=== PATIENT | female | born 2000 | race Caucasian/White ===

== ENCOUNTER → 2020-07-21 15:48 | Outpatient (BNVA) | payer OTHER, SELFPAY | PROVIDERS: PCP Nurse Practitioner Family; Visit Provider Internal Medicine Gastroenterology | DX: Z76.89 Persons encountering health services in other specified circumstances (principal) ==

== ENCOUNTER → 2021-01-20 13:08 | Outpatient (BNVA) | payer BC, SELFPAY | PROVIDERS: PCP Nurse Practitioner Family; Visit Provider Internal Medicine Gastroenterology ==

== ENCOUNTER 2024-05-11 11:14 | Outpatient (REF) | payer OTHER, SELFPAY ==
[2024-05-11 11:34] LABS: MANUAL DIFF FLAG NO
[2024-05-11 12:03] LABS: Basophils Percent Auto 0.6 % (0-2); Eosinophils Absolute Auto 0.1 X10*3/uL (0.0-0.4); Eosinophils Percent Auto 0.8 % (0-4); Hematocrit 39.9 % (37.0-47.0); Hemoglobin 13.8 g/dl (12.0-16.0); Imm Gran Abs Auto 0.02 X10*3/uL (0.00-0.03); Imm Gran Pct Auto 0.3 % (0.0-0.4); Lymphocytes Absolute Auto 1.4 X10*3/uL (1.2-4.9); Lymphocytes Percent Auto 20.6 % (20-40); Mean Corpuscular HGB Conc 34.6 g/dl (31.0-35.0); Mean Corpuscular Hemoglobin 30.1 pg (27.0-33.0); Mean Corpuscular Volume 86.9 fL (80.0-98.0); Mean Platelet Volume 10.3 fL (9.4-12.3); Monocytes Absolute Auto 0.5 X10*3/uL (0.1-1.2); Neutrophils Absolute Auto 4.6 x10*3/uL (2.0-8.3); Neutrophils Percent Auto 70.7 % (45-73); Platelet Count 297 X10*3/uL (160-400); Red Blood Count 4.59 X10*6/uL (4.20-5.50); Red Cell Distribution Width 12.9 % (11.0-16.0); White Blood Count 6.5 X10*3/uL (4.8-10.8)
[2024-05-11 12:57] LABS: Alanine Aminotransferase 23 U/L (0-31); Albumin Level 4.3 g/dL (3.5-5.0); Alkaline Phosphatase 64 U/L (39-117); Anion Gap 11 (12-20); Aspartate Amino Transferase 15 U/L (5-31); Bilirubin Total 1.2 mg/dL (0.0-1.0); Blood Urea Nitrogen 14 mg/dL (9-16); C Reactive Protein < 0.10 mg/dL (< or = 0.50); Calcium 9.9 mg/dL (8.4-10.2); Carbon Dioxide 25 mmol/L (22-29); Chloride 107 mmol/L (96-108); Estimated Glomerular Filt Rate > 60; Glucose Random 93 mg/dL (60-115); Magnesium 2.3 mg/dL (1.6-2.6); Potassium 4.2 mmol/L (3.3-5.1); Sodium 139 mmol/L (135-145); Total Protein 7.9 g/dL (6.5-8.0)
[2024-05-11 13:12] LABS: Ferritin 42 ng/mL (10-122)
[2024-05-11 13:25] LABS: Folate 7.7 ng/mL (> or = 4.0); Vitamin B12 434 pg/mL (200-900)
== END 2024-05-11 11:15 | disposition home or self-care (01) ==
LOC: HO.LAB 11:14
PROVIDERS: PCP Nurse Practitioner Family; Visit Provider Internal Medicine Gastroenterology
DX: D47.09 Other mast cell neoplasms of uncertain behavior (principal); R19.7 Diarrhea, unspecified; K75.81 Nonalcoholic steatohepatitis (NASH)
CPT/HCPCS: 36415; 80053; 82607; 82728; 82746; 83088; 83735; 85025; 86140

== ENCOUNTER 2024-05-16 11:23 | Outpatient (REF) | payer OTHER, SELFPAY ==
[2024-05-16 12:36] LABS: CDiff Gene PCR NEGATIVE (Negative)
[2024-05-16 13:02] LABS: Adenovirus F 40/41 Not Detected (Not Detect.); Astrovirus Not Detected (Not Detect.); Campylobacter Not Detected (Not Detect.); Cryptosporidium Not Detected (Not Detect.); Cyclospora cayetanensis Not Detected (Not Detect.); E. coli EAEC Not Detected (Not Detect.); E. coli EPEC Not Detected (Not Detect.); E. coli ETEC Not Detected (Not Detect.); E. coli STEC Not Detected (Not Detect.); Entamoeba histolytica Not Detected (Not Detect.); Giardia lamblia Not Detected (Not Detect.); Norovirus GI/GII Not Detected (Not Detect.); Plesiomonas shigelloides Not Detected (Not Detect.); Rotavirus A Not Detected (Not Detect.); Salmonella Not Detected (Not Detect.); Sapovirus Not Detected (Not Detect.); Shigella sp./EIEC Not Detected (Not Detect.); Vibrio Not Detected (Not Detect.); Vibrio Cholerae Not Detected (Not Detect.); Yersinia enterocolitica Not Detected (Not Detect.)
[2024-05-23 18:09] LABS: Lactoferrin, Fecal, Quant. <6.25 mcg/mL (<7.25)
== END 2024-05-16 11:24 | disposition home or self-care (01) ==
LOC: HO.LNP 11:23
PROVIDERS: Visit Provider Internal Medicine Gastroenterology
DX: R19.7 Diarrhea, unspecified (principal); D47.09 Other mast cell neoplasms of uncertain behavior
CPT/HCPCS: 83631; 87493; 87507

== ENCOUNTER 2024-05-18 08:42 | Outpatient (REF) | payer OTHER, SELFPAY ==
--- NOTE | ~2024-05-18 | US_ITS ---
EXAMINATION: US ABDOMEN LIMITED CLINICAL INFORMATION: Right upper quadrant pain. Nausea. COMPARISON: CT abdomen and pelvis 04/09/2020. MRI abdomen 01/18/2020. TECHNIQUE: Real-time imaging of the right upper quadrant abdominal viscera. FINDINGS: PANCREAS: Visualized proximal pancreas within normal limits, otherwise partially obscured secondary to overlying bowel gas. LIVER: Normal. The liver is normal in size. The liver contour is normal. Parenchymal echogenicity is normal. No focal hepatic lesion. There is no intrahepatic biliary duct dilatation seen. GALLBLADDER: There is a 0.3 cm adherent calculus versus polyp adjacent to the neck. No evidence of gallbladder wall thickening or pericholecystic free fluid. Negative Ho's sign. COMMON BILE DUCT: Normal in caliber measuring 0.2 cm in diameter. RIGHT KIDNEY: Normal. No hydronephrosis. No renal calculi or focal parenchymal lesions. The kidney measures 10.5 cm in maximum dimension. FREE FLUID: None. US/US abdomen limited IMPRESSION: There is a 0.3 cm adherent calculus versus polyp adjacent to the neck of the gallbladder. Recommend follow-up with ultrasound in 6-12 months. Otherwise, normal examination. Electronically signed by: Cat Olsen MD 05/24/2024 12:01 PM EDT
== END 2024-05-18 08:43 | disposition home or self-care (01) ==
LOC: HO.US 08:42
PROVIDERS: PCP Nurse Practitioner Family; Visit Provider Internal Medicine Gastroenterology
DX: R01.1 Cardiac murmur, unspecified (principal)
CPT/HCPCS: 76705

== ENCOUNTER 2024-06-05 15:47 | Outpatient (REF) | payer OTHER, SELFPAY ==
--- NOTE | ~2024-06-05 | MR_ITS ---
EXAMINATION: MR ABDOMEN WITHOUT AND WITH CONTRAST CLINICAL INFORMATION: Right upper quadrant pain. COMPARISON: Abdominal ultrasound 05/18/2024. CTA abdomen and pelvis 04/09/2020. TECHNIQUE: MR abdomen was performed without and with use of 7 mL intravenous Gadavist gadolinium contrast. Postcontrast images are performed in multiphase dynamic sequences. Imaging was performed in 3 planes. FINDINGS: LUNG BASES: The visualized lung bases are unremarkable. LIVER, GALLBLADDER, AND BILIARY TREE: The liver is normal in size, smooth in contour, and normal in signal. No focal hepatic lesion or biliary ductal dilatation is present. The gallbladder is unremarkable with no evidence of gallbladder wall thickening, or obvious pericholecystic inflammatory changes. PANCREAS: Unremarkable. SPLEEN: Normal. ADRENAL GLANDS: Normal. KIDNEYS AND URETERS: The kidneys are normal in size, shape, and enhance symmetrically. No hydronephrosis. No perinephric stranding. GASTROINTESTINAL TRACT: Nonspecific moderate gastric distention. No bowel obstruction or ascites. ABDOMINAL WALL: No significant hernia is appreciated. LYMPH NODES: No lymphadenopathy. VASCULAR: Unremarkable. OSSEOUS STRUCTURES: No acute or aggressive appearing osseous findings. MR/MR abdomen wo/w con IMPRESSION: 1. Nonspecific moderate gastric distention that could be seen with postprandial state or gastroparesis, and less likely gastric outlet obstruction, correlate clinically. 2. Otherwise, no significant abnormality to explain the patient's pain. Electronically signed by: Cat Olsen MD 06/08/2024 01:43 PM EDT
[2024-06-05] MEDS: gadobutroL 7.5 ML VIAL IVPUSH (16:32)
== END 2024-06-05 15:48 | disposition home or self-care (01) ==
LOC: HO.MRI 15:47
PROVIDERS: PCP Nurse Practitioner Family; Visit Provider Internal Medicine Gastroenterology
DX: R10.11 Right upper quadrant pain (principal)
CPT/HCPCS: 74183; A9585

== ENCOUNTER 2024-06-27 06:25 | Day surgery (SDC) | payer OTHER, SELFPAY ==
--- NOTE | 2024-06-26 14:24 | HO.ANESPROP2 ---
Documented by User: Arabella Potter NP 06/26/24 14:30 HPI - Anesthesia Eval Consult details Narrative: 23yo F for Upper Endoscopy with Balloon Dilitation Mast Cell Ds: Abdominal pain. ? itchy throat. No derm reaction. No anaphylaxis. Famotadine, Cromolyn, Claritin rx. T/C to patient. Had EGD before, thinks [facility], without any mast cell cascade. Prefers to avoid benadryl preop. Will order preop Pepcid IV. PMFSH Active Problems Active Problems: All Active Problems RUQ abdominal pain (Acute) Diarrhea (Acute) Mast cell disorder (Acute) Past Medical History Medical History Migraine Anxiety Mast cell disorder Family History Family History Father Family history of high blood pressure Mother Alive and well Surgical History Surgical History Hx of shoulder surgery Hx of knee surgery History of ankle surgery Hx of carpal tunnel repair Hx of endoscopy History of colonoscopy Social History Social History Alcohol intake: never Patient Tobacco Use Status: Never used Tobacco Use of substances other than those prescribed or required for medical reasons: No Are you DNR?: No Advance Directives: No Advance Directives Information Provided: Yes Meds Allergies Allergy/AdvReac Type Severity Reaction Status Date / Time No Known Allergies Allergy Verified 06/27/24 06:56 Home Medications ?Medication ?Instructions ?Recorded ?Confirmed ?Last Taken ?Type bupropion HCl 75 mg tablet 75 mg PO BID 06/27/24 06/27/24 Unknown History topiramate 25 mg tablet 25 mg PO BID 06/27/24 06/27/24 Unknown History Exam Pertinent Lab Results Pertinent Lab Results: Laboratory Tests 05/11/24 11:33 WBC 6.5 Hgb 13.8 Hct 39.9 Plt Count 297 Sodium 139 Potassium 4.2 Chloride 107 Carbon Dioxide 25 BUN 14 Creatinine 1.03 Assessment and Plan Assessment Anesthesia Assessment: Chart Reviewed Documented by User: Mercy Jim MD 06/27/24 07:31 PMF Past Medical History Medical History Migraine Anxiety Mast cell disorder Family History Family History Father Family history of high blood pressure Mother Alive and well Family history of problems with anesthesia: No Surgical History Surgical History Hx of shoulder surgery Hx of knee surgery History of ankle surgery Hx of carpal tunnel repair Hx of endoscopy History of colonoscopy History of Problems with Anesthesia: No Social History Social History Alcohol intake: never Patient Tobacco Use Status: Never used Tobacco Use of substances other than those prescribed or required for medical reasons: No Are you DNR?: No Advance Directives: No Advance Directives Information Provided: Yes Meds Allergies Allergy/AdvReac Type Severity Reaction Status Date / Time No Known Allergies Allergy Verified 06/27/24 06:56 Home Medications ?Medication ?Instructions ?Recorded ?Confirmed ?Last Taken ?Type bupropion HCl 75 mg tablet 75 mg PO BID 06/27/24 06/27/24 Unknown History topiramate 25 mg tablet 25 mg PO BID 06/27/24 06/27/24 Unknown History Exam Airway TM Dist: >3cm Neck ROM: Full Heart: rrr Lungs: cta Assessment and Plan Assessment Anesthesia Assessment: Anesthesia Plan Discussed Final Anesthetic Review Family History of Problems with Anesthesia: No History of Problems with Anesthesia: No NPO: Yes ASA Class: III Final Preanesthetic Review: No Changes in Pt Med Stat, Meds/Allgs Chart Reviewed, Consent Obtained/Reviewed and Anes Risks/Benef Reviewed Patient Risk: Intermediate Procedure Risk: Low Anesthetic Plan Anesthetic Plan: MAC: Disposition: Standard PACU
[2024-06-27 06:57] VITALS: BMI 28.9
[2024-06-27 07:02] VITALS: BP 125/88; PULSE 80; RESP 15; TEMP 36.7; O2SAT 99
[2024-06-27] MEDS: Famotidine/PF 20 MG/2 ML VIAL IVPUSH (07:14)
[2024-06-27] MEDS: Lactated Ringers 1,000 ML 100 ML IVCONT (07:14)
[2024-06-27 07:28] LABS: UPreg QC Valid YES; Urine Pregnancy NEGATIVE (NEGATIVE)
--- NOTE | 2024-06-27 07:39 | MHC.SHP ---
Pre-Procedural Eval Section A - 24 Hr Update-Section A only Date of Service: 06/27/24 Section B - Complete if H&P > 30 days Chief Complaint: Other mast cell neoplasms of uncertain behavior Relevant Family History (Specify if Yes): No Relevant Social History: None Present Medications: see Short Stay Collaborative assessment Medical History: Significant History (anxiety) History of Previous Operations: Relevant previous surgery/procedure and date(s) ( History of colonoscopy Hx of carpal tunnel repair Hx of endoscopy) Allergies: Allergies Allergy/AdvReac Type Severity Reaction Status Date / Time No Known Allergies Allergy Verified 06/27/24 06:56 Review of Systems Sugical H&P ROS: Negative: Constitution, Cardiovascular, Respiratory, Neurological, Psychiatric, Hem-Onc, Allergic/Immunologic, Gastrointestinal, Genitourinary, Musculoskeletal, Integumentary, Endocrine and Eyes/Ears/Nose/Throat Exam Surgical H&P Exam: Normal: HEENT, Normal: Heart, Normal: Lungs, Normal: Extremities, Normal: Abdomen, Normal: Skin and Normal: Neurological Plan Diagnosis/Plan: Unchanged I have reviewed the history and physical and performed a pertinent physical examination on my patient. No changes have occurred unless specified. Time Spent With Patient Time: Total time managing care of this patient today ____ minutes.
--- NOTE | 2024-06-27 07:41 | P.OP_ITS ---
Operative Note Operative Note Date of Service: 06/27/24 Narrative: Procedure Description: EGD Indication: Abdominal pain Anesthesia: MAC FLEXIBLE TRANSORAL UPPER GASTROINTESTINAL ENDOSCOPY UPPER ENDOSCOPY Consent: Indications for the procedure and potential complications of bleeding, perforation, reaction to medications and missed diagnosis were discussed with the patient and informed consent was obtained. Instrument: Olympus GIF H 190 J mid size upper endoscope Monitoring: Vital signs and clinical assessment, continuous EKG monitoring, Pulse oximetry, Carbon Dioxide monitoring and blood pressure monitoring were done throughout the procedure. Procedure: The patient was placed in the left lateral decubitis position and pre-procedure medications were administered and a bite block was placed. The endoscope was inserted into the mouth and advanced under direct vision to the third part of duodenum. A careful inspection was made as the upper endoscope was withdrawn including a retroflexed examination of the proximal stomach; Findings and interventions are described below. Findings: Larynx:normal Esophagus: GE junction at 35 cm, diaphragm hiatus at 39 cm, suspected para- esophageal hernia--bx taken from distal and proximal esophagus --UES and LES also dilated to 20 mm, no heme noted Stomach: normal . Biopsies were obtained. Grade 2 flap valve on retroflexed examination of the cardia. Plyoric outlet was v tight, stretched with wire guided balloon to 20 mm with heme noted around edges of outlet Duodenum: Normal bulb and descending duodenum, Intervention: Biopsies as noted above, wire guided balloon dilation Impression/Findings: suspected para esophageal hernia pyloric outlet stenosis PLAN: regular diet as tolerated GERD precautions Ba swallow with pill and follow thru
[2024-06-27 08:11] VITALS: BP 106/70; PULSE 92; RESP 16; TEMP 36.4; O2SAT 98
[2024-06-27 08:26] VITALS: BP 118/81; PULSE 88; RESP 16; O2SAT 100
[2024-06-27 08:40] VITALS: BP 126/82; PULSE 93; RESP 16; TEMP 36.3; O2SAT 100
== END 2024-06-27 09:10 | disposition home or self-care (01) ==
PROVIDERS: Nurse Practitioner; PCP Nurse Practitioner Family; Visit Provider Internal Medicine Gastroenterology
PROC: (CPT 43249; principal; 2024-06-27 07:30)
DX: D47.09 Other mast cell neoplasms of uncertain behavior (principal); R10.9 Unspecified abdominal pain; K31.1 Adult hypertrophic pyloric stenosis; K44.9 Diaphragmatic hernia without obstruction or gangrene; F41.9 Anxiety disorder, unspecified
CPT/HCPCS: 43249; 43245; 43239; 81025; 88305; 88342; C1726; J1100; J1596; J2003; J2704

== ENCOUNTER → 2024-06-27 06:25 | Outpatient (BNV) | payer OTHER, SELFPAY | PROVIDERS: PCP Nurse Practitioner Family; Visit Provider Internal Medicine Gastroenterology | DX: R10.9 Unspecified abdominal pain (principal); K31.1 Adult hypertrophic pyloric stenosis | CPT/HCPCS: 43239; 43249 ==

== ENCOUNTER 2024-07-16 14:15 | Outpatient (AMB) | payer OTHER, SELFPAY ==
--- NOTE | 2024-07-16 14:17 | A.OFFVIS_ITS ---
Vital Signs 07/16/24 14:19 Height 5 ft 2 in Weight 154 lb 5.177 oz BMI 28.2 BP 119/70 Blood Pressure Location Lt brachial Position Sitting Pulse 98 Intake Visit Reasons: Mast cell disorder Intake Note: Tuyet presents in the office as a follow up for Mast Cell Disorder. CC: States that she does not feel that anything has changed. Patient is scheduled for a BA swallow on at [employer] [place]. 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 Recommend follow-up with ultrasound in 6-12 months. MRI: 06/05 1. Nonspecific moderate gastric distention that could be seen with postprandial state or gastroparesis, and less likely gastric outlet obstruction, correlate clinically. 2. Otherwise, no significant abnormality to explain the patient's pain. HIDA_- normal EXAM: GENERAL: The patient is well developed and nontoxic. VITAL SIGNS:see workflow HEENT: Nonicteric sclerae, PERRLA, EOMI. Oropharynx clear. Moist mucous membranes. Conjunctivae appear well perfused. No thyroid mass. CHEST: Chest wall is nontender. HEART: Regular rate and rhythm without murmurs. LUNGS: Clear to auscultation bilaterally. ABDOMEN: Soft, positive bowel sounds, tender epigastrium, no organomegaly.no flank tenderness SKIN: No rash, no excessive bruising, petechiae, or purpura. NEUROLOGIC: Cranial nerves II-XII intact without motor/sensory deficit. Psych: normal affect A/P: 1/Suspected hiatal hernia and reflux sx, neg GB work up, possible tiny stone or polyp PLAN: 1/ await ba swallow and pill 2/ can repeat US next year 3/ h pylori breath test -carafate for 2 weeks, and hold ppi [facility] Medical History Migraine Anxiety Mast cell disorder Surgical History Hx of shoulder surgery Hx of knee surgery History of ankle surgery Hx of carpal tunnel repair Hx of endoscopy History of colonoscopy Family History Father Family history of high blood pressure Mother Alive and well Social History Alcohol intake: never Patient Tobacco Use Status: Never used Tobacco Physical Exam Vital Signs: Last Vital Signs Pulse 98 07/16/24 14:19 BP 119/70 07/16/24 14:19 BMI result Body Mass Index 28.2 Assessment & Plan Assessment & Plan (1) GERD (gastroesophageal reflux disease): Code(s): K21.9 - Gastro-esophageal reflux disease without esophagitis Category: Medical Plan: see above Medications: New sucralfate 10 mL PO BID 300 mL 0RF Coding Level of Care Code Est Pt Level 3 (86656) Diagnoses GERD (gastroesophageal reflux disease) K21.9
[2024-07-16 14:19] VITALS: BP 119/70; PULSE 98; BMI 28.2
== END 2024-07-16 14:49 | disposition home or self-care (01) ==
LOC: HO.HGI 14:15
PROVIDERS: PCP Physician Assistant Surgical; Visit Provider Internal Medicine Gastroenterology
DX: K21.9 Gastro-esophageal reflux disease without esophagitis (principal)
CPT/HCPCS: 99213

== ENCOUNTER 2024-07-31 09:18 | Outpatient (AMB) | payer OTHER, SELFPAY ==
--- NOTE | 2024-07-31 09:26 | AM.OFFVISNUR ---
Intake Visit Reasons: H PYLORI Allergies No Known Allergies Allergy (Verified 07/16/24 14:19) Nursing Note Patient presents for collection of H Pylori breath test. Patient has been fasting for 1 hour (nothing to eat, drink, no chewing gum or smoking) has not taken any antacid medication for at least 2 weeks and has no allergies to artificial sweeteners.?? Assessment & Plan Assessment & Plan (1) GERD (gastroesophageal reflux disease): Code(s): K21.9 - Gastro-esophageal reflux disease without esophagitis Category: Medical (2) Diarrhea: Code(s): R19.7 - Diarrhea, unspecified Category: Medical (3) RUQ abdominal pain: Code(s): R10.11 - Right upper quadrant pain Category: Medical Plan Patient presents for collection of H Pylori breath test. Patient has been fasting for 1 hour (nothing to eat, drink, no chewing gum or smoking) has not taken any antacid medication for at least 2 weeks and has no allergies to artificial sweeteners.???This test checks for an overgrowth of bacteria in your stomach. We all have bacteria but some may have more than others. It is treatable. if the test comes back negative there is nothing else to do. If the test result is positive we will treat you with 2 antibiotics and a medication to decrease the acid in your stomach (PPI) for 2 weeks. Two weeks after you have completed the treatment we will retest you to make sure the overgrowth has resolved. Orders: Orders H Pylori Breath Test Today Patient Instructions: Process for specimen collection and reason for testing was explained to the patient. Specimen collection. Patient instructed to take a deep breath and then exhale into the blue bag, filling it up as much as possible. Patient instructed to drink a mixture of water and the artificial sweetener with a straw. A 15 minute wait period was observed. Patient instructed to take a deep breath and then exhale into the pink bag, filling it up as much as possible.??
== END 2024-07-31 09:49 | disposition home or self-care (01) ==
PROVIDERS: PCP Physician Assistant Surgical; Visit Provider Internal Medicine Gastroenterology
DX: K21.9 Gastro-esophageal reflux disease without esophagitis (principal); R19.7 Diarrhea, unspecified; R10.11 Right upper quadrant pain

== ENCOUNTER 2024-07-31 09:18 | Outpatient (REF) | payer OTHER, SELFPAY ==
[2024-08-01 15:58] LABS: H Pylori Breath Test Negative (Negative)
== END 2024-07-31 09:19 | disposition home or self-care (01) ==
LOC: HO.LNP 09:18
PROVIDERS: PCP Physician Assistant Surgical; Visit Provider Internal Medicine Gastroenterology
DX: K21.9 Gastro-esophageal reflux disease without esophagitis (principal)
CPT/HCPCS: 83013; 99211

== ENCOUNTER → 2024-09-26 08:06 | Outpatient (REF) | payer OTHER, SELFPAY ==
--- NOTE | ~2024-09-26 | NM_ITS ---
EXAMINATION: NM RADIONUCLIDE SOLID FOOD GASTRIC EMPTYING 4-HOUR STUDY CLINICAL INFORMATION: Early satiety COMPARISON: None TECHNIQUE: A standard meal consisting of 4 oz of Egg Beaters brand tagged with 1 microcuries Tc-99m Sulfur Colloid, 8 oz water and 2 slices of toast with jelly was administered orally to the patient. Images were obtained using a dual head gamma camera in the anterior and posterior projections over of the stomach immediately post ingestion and at hourly intervals up to 4 hours post ingestion. The anterior and posterior counts at each time interval were averaged using the geometric mean and expressed as percentage of the immediate post ingestion counts. FINDINGS: There is good visualization of activity in the stomach immediately post ingestion. As the study progresses, there is good clearance of activity from the stomach and visualization of progressively increasing small bowel activity. By the end of the study, there is almost no retention noted in the stomach. Retention in the stomach at each time interval was: 1 hour 60% (normal 37%-90%) 2 hours 23% (normal 30%-60%) 3 hours 5% 4 hours not imaged. % (normal 0%-10%) NM/MO gastric emptying study IMPRESSION: Normal 4-hour solid food gastric emptying study. For solid meal, rapid gastric emptying is less than 30% at 60 minutes. Delayed gastric emptying criteria is more than 60% remaining at 120 minutes or more than 10% at 240 minutes. The 4-hour value is the best discriminator of a normal or abnormal result). Gastric emptying study grading per JNMT Consensus Recommendations in 2008 (://tech.snmjournals.org/content/36/1/44) Grade 1 (mild retention): 11-20% at 4h Grade 2 (moderate retention): 21-35% at 4h Grade 3 (severe retention): 36-50% at 4h Grade 4 (very severe retention): >50% retention at 4h Electronically signed by: Clive Kumar MD 09/26/2024 12:53 PM [facility] [place]
== END ==
LOC: HO.NUCMED 08:06
PROVIDERS: PCP Physician Assistant Surgical; Visit Provider Internal Medicine Gastroenterology
DX: R68.81 Early satiety (principal)
CPT/HCPCS: 78264; A9541

== ENCOUNTER → 2024-09-26 08:07 | Outpatient (BNV) | payer OTHER, SELFPAY | PROVIDERS: PCP Physician Assistant Surgical; Visit Provider Radiology Diagnostic Radiology | DX: R68.81 Early satiety (principal) | CPT/HCPCS: 78264 ==

== ENCOUNTER 2024-11-02 09:23 | Outpatient (AMB) | payer OTHER, SELFPAY ==
--- NOTE | 2024-11-02 09:25 | MHC.OFFVIS ---
Vital Signs 11/02/24 09:26 Height 5 ft 2 in Weight 145 lb 8.081 oz BMI 26.6 BP 113/81 Blood Pressure Location Lt brachial Position Sitting Pulse 91 Intake Visit Reasons: S/P EGD with dilation; Dr. Warren Intake Note: Tuyet presents in the office as a follow up EGD. CC: She states that she is not having the same symptoms but she cut ouf a lot of foods so she is not sure if she just got used to the feeling or if has gotten a little better. 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 Warren: Details: 24 yr old f here for f/u RECAP: she had been c/o nausea, epigastric pain, going into the chest pain worse with food indigestion, partially helped with PPI and pepcid EGD with suspected para esophageal hernia, path with patchy gastritis, pyloric dilation she feels dilation didn't help she is awaiting ba swallow I ordered other tests: 05/18/24 US 0.3 cm adherent calculus versus polyp adjacent to the neck of the gallbladder. Recommend follow-up with ultrasound in 6-12 months. MRI: 06/05 1. Nonspecific moderate gastric distention that could be seen with postprandial state or gastroparesis, and less likely gastric outlet obstruction, correlate clinically. 2. Otherwise, no significant abnormality to explain the patient's pain. HIDA_- normal upper GI series: 08/05 nml - no hiatal hernia seen GES: 10/06- slightly fast emptying at 2 hr interim: she is unchanged, still has epigastric discomfort, anxiety issues sleep is better, 7 hr left job which has been helpful EXAM: GENERAL: The patient is well developed and nontoxic. VITAL SIGNS:see workflow HEENT: Nonicteric sclerae, PERRLA, EOMI. Oropharynx clear. Moist mucous membranes. Conjunctivae appear well perfused. No thyroid mass. CHEST: Chest wall is nontender. HEART: Regular rate and rhythm without murmurs. LUNGS: Clear to auscultation bilaterally. ABDOMEN: Soft, positive bowel sounds, tender epigastrium, no organomegaly.no flank tenderness SKIN: No rash, no excessive bruising, petechiae, or purpura. NEUROLOGIC: Cranial nerves II-XII intact without motor/sensory deficit. Psych: normal affect A/P: 1/ I reviewed results incl GES and acutally she has fast emtpying, she does recall having sx during the GES so she might have rapid gastric emptying PLAN: 1/ reivew high fiber diet to see if helps and increase fluid intake 2/ if ongoing sx then capsule endoscopy PFSH Medical History Migraine Anxiety Mast cell disorder Surgical History Hx of shoulder surgery Hx of knee surgery History of ankle surgery Hx of carpal tunnel repair Hx of endoscopy History of colonoscopy Family History Father Family history of high blood pressure Mother Alive and well Social History Alcohol intake: never Patient Tobacco Use Status: Never used Tobacco Physical Exam Vital Signs: BMI result Body Mass Index 26.6 Assessment & Plan Assessment & Plan (1) Epigastric abdominal pain: Code(s): R10.13 - Epigastric pain Category: Medical Plan: as above Medications: Discontinued nortriptyline Discontinued Reason: Patient no longer taking 10 mg PO BEDTIME 30 caps 3RF Coding Level of Care Code Est Pt Level 3 (15342) Diagnoses Epigastric abdominal pain R10.13
[2024-11-02 09:26] VITALS: BP 113/81; PULSE 91; BMI 26.6
--- OUTSIDE RECORDS SUMMARY | 2024-11-02 09:49 | XMS_ITS | Clinical Summary ---
Author Organization [facility] Address [address] [place] [address] Care Team Providers Care Children'S Attendant Name Role Phone Meredith Aranda NP Primary Care Provider Unavailabl e Allergies Active Allergy Reactions Criticality Noted Date Comments Lactose Abdominal Pain 04/29/2023 Medications tiZANidine (ZANAFLEX) 4 mg tablet SMARTSI Tablet(s) By Mouth Every Night PRN 3 Active SUMAtriptan (IMITREX) 50 mg tabletIndication s:Intractable migraine with aura without status migrainosus Take 1 tablet (50 mg total) by mouth once as needed for migraine (headache). May repeat one time after 2 hours if needed. 12 tablet 3 3 Active topiramate (TOPAMAX) 25 mg tabletIndication s:Intractable migraine with aura without status migrainosus TAKE ONE TABLET BY MOUTH TWICE A DAY 180 tablet 11 4 Active Active Problems Problem Noted Date Diagnosed Date Complex regional pain syndrome type I 04/29/2023 Migraine with aura 04/29/2023 Nausea 04/29/2023 Anxiety 04/29/2023 Mast cell disorder 03/26/2021 Gastroesophageal reflux disease without esophagi tis 03/26/2021 Sural neuritis, right 12/15/2020 Chronic RUQ pain 08/23/2019 Overview (04/29/2023): Last Assessment & Plan: This patient with RUQ abdominal pain and nausea has had an unremarkable workup. I had a lengthy discussion with the patient and her mother regarding her pain and the normal studies she has had. With normal studies, no stones, and no biliary dyskinesia, I feel there is no role for surgical exploration. She has seen Dr. Hines of GI who recommended she undergo repeat upper endoscopy to obtain biopsies and I have recommended she proceed with that. She may try Prilosec to be taken every day. Arthralgia of left temporomandibular joint 05/09 Encounters Date Type Department Care Team Description 08/08/2024 Refill [facility] [address] [place], [place] [id number] Branch Examiner: Vera Granados, Nehemiah Saldivar NP Intractable migraine with aura without status migrainosus from Last 3 Months Social History Tobacco Use Types Packs/Day Years Used Date Smoking Tobacco: Never Assessed Tobacco Cessation:Counseling Given: No Comments Unknown Sex and Gender Information Value Date Recorded Sex Assigned at Female 01/19/2023 4:17 PM EDT Legal Sex Female 3:43 PM EDT Gender Identity Female 01/19/2023 4:17 PM EDT Sexual Orientation Not on file Last Filed Vital Signs Vital Sign Reading Time Taken Comments Blood Pressure 125/85 04/29/2023 10:52 AM EDT Pulse 87 04/29/2023 10:52 AM EDT Temperature - - Respiratory Rate - - Oxygen Saturation - - Inhaled Oxygen Concentration - - Weight - - Height - - Body Mass Index - - Plan of Treatment Health Maintenance Due Date Last Done Comments HIV Screening 1998 Hepatitis C Screening 1998 Pap Smear 1998 COVID-19 Vaccine ( season) 2024 07/29/2022, 06/19/2021, 12/12/2020, Additional history exists Influenza Vaccine (#1) 2024 , 06/28/2019, 06/28/2018, Additional history exists Alcohol/Substance Use Screening 09/12/2024 Depression Screening and Follow-Up 09/12/2024 Social Drivers of Health Annual Screening 09/12/2024 DTaP,Tdap,and Td Vaccines (8 - Td or Tdap) 03/26/2031 03/26/2021, 12/23/2010, 2002, Additional history exists RSV Vaccine (60+ years old and patients) (1 - 1-dose 75+ series) 2073 Hepatitis B Vaccines Completed 07/29/1999, 1998, 1998 Varicella Vaccines Completed 12/10/2009, 11/04/1999 HPV Vaccines Completed 02/16/2013, 04/13, 02/16/2012 Pneumococcal Vaccine: Pediatric (0-5 Years) and At-Risk Patients (6-50 Years) Aged Out No longer eligible based on patient's age to complete this topic [place] [address] [employer] [id number] Care Teams Children'S Attendant Relationship Specialty Start Date End Date Meredith Aranda NP PCP - General Family Medicine 01/19/23
--- OUTSIDE RECORDS SUMMARY | 2024-11-02 09:49 | XMS_ITS | Encounter Summary ---
Author Organization [facility] Address [address] [place] [address] Phone Care Team Providers Care Woodwinds Teacher Name Role Phone Brigette Vigil MD Primary Care Provider Encounter Details Date Type Department Care Team (Late st Contact Info) Description 12/17/2013 Orders Only [facility], [address] [place] [address] Social History Tobacco Use Types Packs/Day Years Used Date Smoking Tobacco: Never Assessed Comments Unknown Sex and Gender Information Value Date Recorded Sex Assigned at Not on file Legal Sex Female 4:32 PM EST Gender Identity Not on file Sexual Orientation Not on file documented as of this encounter Plan of Treatment Not on file documented as of this encounter Visit Diagnoses Not on filedocumented in this encounter Care Teams Woodwinds Teacher Relationship Specialty Start Date End Date Brigette Vigil MD [address] [place] [address] [address] [place] [address] PCP - General 11/01/16 documented as of this encounter
--- OUTSIDE RECORDS SUMMARY | 2024-11-02 09:49 | XMS_ITS | Encounter Summary ---
Author Organization [facility] Address [phone] [facility] [place] [address] Care Team Providers Care Plastic Card Grader Cardroom Name Role Phone Uziel Baez MD Unavailable [phone] Benjamin Eugene PA-C Primary Care Provider [phone] Reason for Visit * Reason Onset Date Comments Hepatitis B 10/02/2024 Encounter Details Date Type Department Care Team (Late st Contact Info) Description 10/02/2024 Telephone [employer] [facility] Internal Medicine [address] [place], [place] [id number] Benjamin Eugene PA-C [address] [place] [address] [email or web address] Hepatitis B Social History Tobacco Use Types Packs/Day Years Used Date Smoking Tobacco: Never Smokeless Tobacco: Never Alcohol Use Standard Drinks/Week Comments Not Currently 0 (1 standard drink = 0.6 oz pur e alcohol) Child or Family Care Answer Date Record ed Do you have problems with on e of the following making it difficult for you to work, study, or receive health care? No 09/19/2024 Education Answer Date Recorded Are you interested in help w ith more adult education (for example, completing high school, GED, job training, learning the Panamanian language, technical skills, or developing parenting skills)? No 09/19/2024 Are you concerned about learning? Not on file 09/19/2024 No 09/19/2024 Yes 09/19/2024 Food Answer Date Recorded Within the past 6 months we worried whether our food would run out before we got money to buy more. Never True 09/19/2024 Within the past 6 months the food we bought just didn't last and we didn't have enough money to get more. Never True Residential Stability Answer Date Recor ded What is your housing situation today? I have giuliano sing 09/19/2024 How many times have you move d in the past 12 months? Zero (I did not move) 09/19/2024 Paying for Meds Answer Date Recorded Do you have trouble paying for medicines? No 09/19/2024 Paying Utility Bills Answer Date Record ed Do you have trouble paying your heating or elect ricity bill? No 09/19/2024 Transportation Answer Date Recorded Has the lack of transportati on kept you from medical appointments or from getting medications? No 09/19/2024 Unemployment Answer Date Recorded Are you currently unemployed or working on a part-time or temporary basis, and looking for work? No 09/19/2024 Digital Access Answer Date Recorded No 09/19/2024 Yes 09/19/2024 Do you have reliable internet access at home? Ye s 09/19/2024 Do you have a device (e.g., phone, tablet, computer) with a working camera? Yes 09/19/2024 Intimate Partner Violence Answer Date R ecorded Are you denied basic needs s uch as food, clothing, or medical care? No 09/19/2024 In the past 12 months have y ou been in a relationship with a person who hurts, threatens, or tries to control you? No 09/19/2024 Are you denied basic needs s uch as food, clothing, or medical care? No 09/19/2024 In the past 12 months have y ou been in a relationship with a person who hurts, threatens, or tries to control you? No 09/19/2024 Sex and Gender Information Value Date Recorded Sex Assigned at Female 03/11/2019 12:13 PM EDT Gender Identity Female 03/11/2019 12:13 PM EDT Sexual Orientation Straight 03/11/2019 12 :13 PM EDT documented as of this encounter Progress Notes * Magan Cates - 10/04/2024 8:01 AM EST Patient aware order placed for blood work * Magan Cates - 10/02/2024 8:12 AM EST Patient is being required to get a Hep B for work. Wondering if provider can place order so that she can get at our office? documented in this encounter Plan of Treatment Upcoming Encounters Date Type Department Care Team (Late st Contact Info) Description 09/26/2025 3:20 PM EST Appointment [facility] Internal Medicine [address] [place] [address] Benjamin Eugene PA-C [address] [place] [address] [email or web address] documented as of this encounter Results * Hepatitis B core antibody, total (10/06/2024 8:16 AM EST) HEP B CORE AB, TOT NON-REACTI VE NON-REACTI VE [facility] Blood 10/06/2024 8:16 AM EST 10/06/2024 8:18 AM EST Benjamin Eugene PA-C LAB BLOOD ORDERABLES [address] [phone] * Hepatitis B surface antibody (10/06/2024 8:16 AM EST) HBV SURFACE ANTIBODY Positive [facility] Comment: Unvaccinated: Negative Vaccinated: Positive Blood 10/06/2024 8:16 AM EST 10/06/2024 8:18 AM EST Benjamin Eugene PA-C LAB BLOOD ORDERABLES [facility] [address] [place] [address] documented in this encounter Visit Diagnoses Diagnosis Immunity status testing- Primary Antibody response examination documented in this encounter Additional Health Concerns Assessment Noted Time PHQ-9 Depression Total Score: 025 6:25 AM EST PHQ-2 Depression Total Score: 09/19/19 25 6:25 AM EST documented as of this encounter Care Teams Plastic Card Grader Cardroom Relationship Specialty Start Date End Date Benjamin Eugene PA-C [address] [place] [address] [email or web address] PCP - General Physician Refrigeration Installer 06/01/24 Uziel Baez MD [address] [place] [phone] Insurance Assigned Provider Internal Medicine 09/24/19 documented as of this encounter Additional Source Comments The information contained in this document represents components of the legal health record. It is not the complete legal health record.[facility]
--- OUTSIDE RECORDS SUMMARY | 2024-11-02 09:49 | XMS_ITS | Referral Summary ---
Author Organization [facility] Address [address] [place] [address] Care Team Providers Care Computer Art Instructor Name Role Phone Meredith Aranda NP Primary Care Provider Kevyn e Encounters Date Type Department Care Team Description 08/08/2024 Refill [facility] [address] [place] [address] Label Tacker: Nehemiah Glasgow NP Intractable migraine with aura without status migrainosus from Last 3 Months Allergies Active Allergy Reactions Criticality Noted Date [...] day. Arthralgia of left temporomandibular joint 05/09 Social History Tobacco Use Types Packs/Day Years [...] Mass Index - - Plan of Treatment Not on file Insurance [facility] [employer] [place] [id number] Care Teams Computer Art Instructor Relationship Specialty Start Date End Date Meredith Aranda NP PCP - General Family Medicine 01/19/23
--- OUTSIDE RECORDS SUMMARY | 2024-11-02 09:49 | XMS_ITS | Encounter Summary ---
Author Organization [facility] Address [phone] [facility] [place] [place] [address] Care Team Providers Care Blueprinter Name Role Phone Meredith Aranda SAFETY LAMP KEEPER Primary Care Provider [phone] Uziel Baez MD Unavailable [phone] Umesh Ortiz MD Primary Care Provider [phone] Benita Gordon NP Primary Care Provider [phone] Benjamin EugeneC Primary Care Provider [phone] Encounter Details Date Type Department Care Team (Late st Contact Info) Description 04/01/2021 Ancillary Orders [facility],Outside Imaging [address] [place] [address] System, Provider Not In, [facility] [address] [address] Social History Tobacco Use Types Packs/Day Years Used Date Smoking Tobacco: Never Smokeless Tobacco: Never Alcohol Use Standard Drinks/Week Comments No 0 (1 standard drink = 0.6 oz pur e alcohol) Child or Family Care Answer Date Record ed Do you have problems with on e of the following making it difficult for you to work, study, or receive health care? No 03/23/2021 Education Answer Date Recorded Are you interested in help w ith more adult education (for example, completing high school, GED, job training, learning the Maldivian language, technical skills, or developing parenting skills)? No 03/23/2021 Food Answer Date Recorded Within the past 6 months we worried whether our food would run out before we got money to buy more. Never True 03/23/2021 Within the past 6 months the food we bought just didn't last and we didn't have enough money to get more. Never True Residential Stability Answer Date Recor ded What is your housing situation today? I have giuliano li 03/23/2021 How many times have you move d in the past 12 months? Zero (I did not move) 03/23/2021 Paying for Meds Answer Date Recorded Do you have trouble paying for medicines? No 03/23/2021 Paying Utility Bills Answer Date Record ed Do you have trouble paying your heating or elect ricity bill? No 03/23/2021 Transportation Answer Date Recorded Has the lack of transportati on kept you from medical appointments or from getting medications? No 03/23/2021 Unemployment Answer Date Recorded Are you currently unemployed or working on a part-time or temporary basis, and looking for work? No 03/23/2021 Sex and Gender Information Value Date Recorded Sex Assigned at Female 03/11/2019 12:13 PM EDT Gender Identity Female 03/11/2019 12:13 PM EDT Sexual Orientation Straight 03/11/2019 12 :13 PM EDT documented as of this encounter Plan of Treatment Upcoming Encounters Date Type Department Care Team (Late st Contact Info) Description 09/26/2025 3:20 PM EST Appointment [facility] Internal Medicine [address] [place] [address] Benjamin Eugene PA-C [address] [place] [address] [email or web address] documented as of this encounter Results * MRI Lower Extremity Outside (No Interpretation) (02/29/2020 12:00 AM EDT) Narrative SYSTEMGENERATED, DOCUMENTATION - 04/01/2021 10:23 AM EDT This study is for PACS storage only and not for interpretation. Provider Not In System PhD IMG OUTSIDE I MAGING W/OUT INTERPRETATION documented in this encounter Visit Diagnoses Not on filedocumented in this encounter Additional Health Concerns Infection Onset Date Last Indicated Resolved Time CoV-Exposed Comment:Recent close contact documented in the COVID-19 PCR/PRO order 05/06/2021 05/08/2021 05/21/2021 1:23 AM E DT CoV-Exposed Comment:Recent close contact documented in the COVID-19 Amb Triage Form 09/07/2021 09/10/2021 09/22/2021 1:[address] CoV-Risk Comment:Per Ambulatory Triage Form 09/22/2021 09/22/202109/23 11:09 PM EST COVID-19 09/22/2021 09/29/2021 10/20/2021 1:21 AM EST CoV-Risk 05/27/2023 05/29/2023 06/09/2023 1:23 AM EDT Assessment Noted Time PHQ-2 Depression Total Score: 0 03/23/20 7:47 PM EDT documented as of this encounter Care Teams Blueprinter Relationship Specialty Start Date End Date Meredith Aranda NP PCP - General Family Medicine 09/24/19 11/15/23 Umesh Ortiz MD [address] [place] [address], [address] [place] [address] PCP - General Internal Medicine 11/16/23 05/06/24 Benita Gordon NP [address] [place] [address] PCP - General Nurse Practitioner 05/07/24 05/31/24 Benjamin Eugene PA-C [address] [place] [address] [email or web address] PCP - General Physician File Drawer Finisher 06/01/24 Uziel Baez MD [address] [place] [address] [email or web address] Insurance Assigned Provider Internal Medicine 09/24/19 documented as of this encounter Additional Source Comments The information contained in this document represents components of the legal health record. It is not the complete legal health record.[facility]
--- OUTSIDE RECORDS SUMMARY | 2024-11-02 09:49 | XMS_ITS | Encounter Summary ---
Author Organization [facility] Address [phone] [facility] [place] [address] Care Team Providers Care Healthcare Analyst Name Role Phone Uziel Baez MD Unavailable [phone] Benjamin Eugene PA-C Primary Care Provider [phone] Encounter Details Date Type Department Care Team (Latest Contact Info) Description 10/06/2024 8:07 AM EST - 10/06/2024 11:59 PM [facility] Encounter [facility] [address] [place] [address] Benjamin Eugene PA-C [address] [place] [address] [email or web address] Discharge Disposition: Home or Self Care Social History Tobacco Use Types Packs/Day Years [...] high school, GED, job training, learning the Taiwanese language, technical skills, or developing parenting skills)? [...] housing situation today? I have giuliano li 09/19/2024 How many times have you move [...] PM EDT documented as of this encounter Medications at Time of Discharge Medication Sig Dispensed Refills Start Date End Date cromolyn (GASTROCROM) 100 mg/5 mL solution Take 10 mL by mouth 4 (four) times a day. 05/15/2024 famotidine (PEPCID) 40 MG tablet Take 40 mg by mouth nightly at bedtime. 05/04/2024 pantoprazole (PROTONIX) 40 MG tablet Take 1 tablet by mouth daily. 05/08/2024 SUMAtriptan (IMITREX) 50 MG tablet Take 50 mg by mouth once as needed. 07/22/2023 topiramate (TOPAMAX) 25 MG tablet Take 25 mg by mouth 2 (two) times a day. 04/29/2023 buPROPion (WELLBUTRIN SR) 100 MG SR 12 hr tablet Take 1 tablet (100 mg total) by mouth 2 (two) times a day. 60 tablet 2 08/20/2024 10/12/2024 documented as of this encounter Plan of Treatment Upcoming Encounters Date Type Department Care Team (Late st Contact Info) Description 09/26/2025 3:20 PM EST Appointment [facility] Internal Medicine [address] [place] [address] Benjamin Eugene PA-C [address] [place] [address] [email or web address] documented as of this encounter Procedures Procedure Name Priority Date/Time Associated Diagnosis Comments HEPATITIS B CORE ANTIBODY, TOTAL Routine 10/06/2024 8:16 AM EST Immunity status testing HEPATITIS B SURFACE ANTIBODY Routine 10/06/2024 8:16 AM EST Immunity status testing documented in this encounter Results * Hepatitis B core antibody, total (10/06/2024 8:16 AM EST) HEP B CORE AB, TOT NON-REACTI VE NON-REACTI VE [facility] Blood 10/06/2024 8:16 AM EST 10/06/2024 8:18 AM EST Benjamin Eugene PA-C LAB BLOOD ORDERABLES [address] [address] * Hepatitis B surface antibody (10/06/2024 8:16 AM EST) HBV SURFACE ANTIBODY Positive [facility] Comment: Unvaccinated: Negative Vaccinated: Positive Blood 10/06/2024 8:16 AM EST 10/06/2024 8:18 AM EST Benjamin Eugene PA-C LAB BLOOD ORDERABLES [address] [address] documented in this encounter Visit Diagnoses Diagnosis Immunity status testing Antibody response examination documented in this encounter Additional Health Concerns Assessment Noted Time PHQ-9 Depression Total Score: 19 025 6:25 AM EST PHQ-2 Depression Total Score: 6 09/19/19 25 6:25 AM EST documented as of this encounter Care Teams Healthcare Analyst Relationship Specialty Start Date End Date Benjamin Eugene PA-C [address] [place] [address] PCP - General Physician Air Turning Machine Feeder 06/01/24 Uziel Baez MD [address] [place] [address] Insurance Assigned Provider Internal Medicine 09/24/19 documented as of this encounter Additional Source Comments The information contained in this document represents components of the legal health record. It is not the complete legal health record.[facility]
--- OUTSIDE RECORDS SUMMARY | 2024-11-02 09:49 | XMS_ITS | Encounter Summary ---
Author Organization [facility] Address [phone] [facility] [employer] [place] [address] Care Team Providers Care Systems Navigator Name Role Phone Uziel Baez MD Unavailable [phone] Benjamin Eugene PA-C Primary Care Provider [phone] Encounter Details Date Type Department Care Team (Late st Contact Info) Description 09/27/2024 Orders Only [facility] Internal Medicine [address] [place] [address] Provider, MD Jil [address] [place], [place] [address] Social History Tobacco Use Types Packs/Day Years [...] high school, GED, job training, learning the Niuean language, technical skills, or developing parenting skills)? [...] Info) Description 09/26/2025 3:20 PM EST Appointment [facility] Internal Medicine [address] [place] [address] Benjamin Eugene PA-C [address] [place] [address] documented as of this encounter Procedures Procedure Name Priority Date/Time Associated Diagnosis Comments OUTSIDE IMAGING Routine 09/26/2024 3:49 PM EST documented in this encounter Results * Outside Imaging Report Only (09/26/2024 3:49 PM EST) Historical Provider MD GREER XR CHEST documented in this encounter Visit Diagnoses Not on filedocumented in this encounter Additional Health Concerns Assessment Noted Time PHQ-9 Depression Total Score: 19 025 6:25 AM EST PHQ-2 Depression Total Score: 6 09/19/19 25 6:25 AM EST documented as of this encounter Care Teams Systems Navigator Relationship Specialty Start Date End Date Benjamin Eugene PA-C [address] [place] [address] PCP - General Physician Rn Private Duty 06/01/24 Uziel Baez MD [address] [place] [phone] Insurance Assigned Provider Internal Medicine 09/24/19 documented as of this encounter Additional Source Comments The information contained in this document represents components of the legal health record. It is not the complete legal health record.[facility]
--- OUTSIDE RECORDS SUMMARY | 2024-11-02 09:49 | XMS_ITS | Encounter Summary ---
Author Organization [facility] Address [phone] [facility] [place] [address] Care Team Providers Care Assembler Tractor Name Role Phone Meredith Aranda STARCH CRAB Primary Care Provider [phone] Uziel Baez MD Unavailable [phone] Umesh Ortiz MD Primary Care Provider [phone] Benita Gordon NP Primary Care Provider [phone] Benjamin Eugene PA-C Primary Care Provider [phone] Encounter Details Date Type Department Care Team (Late st Contact Info) Description 03/12/2021 Procedure Pass [address] [place] [address] Social History Tobacco Use Types Packs/Day Years Used Date Smoking Tobacco: Never Smokeless Tobacco: Never Alcohol Use Standard Drinks/Week Comments No 0 (1 standard drink = 0.6 oz pur e alcohol) Sex and Gender Information Value Date Recorded Sex Assigned at Female 03/11/2019 12:13 PM EDT Gender Identity Female 03/11/2019 12:13 PM EDT Sexual Orientation Straight 03/11/2019 12 :13 PM EDT documented as of this encounter Plan of Treatment Upcoming Encounters Date Type Department Care Team (Late st Contact Info) Description 09/26/2025 3:20 PM EST Appointment [facility] Internal Medicine [address] [place] [address] Benjamin Eugene PA-C [address] [place] [address] documented as of this encounter Visit Diagnoses [...] Time PHQ-2 Depression Total Score: 0 03/23/20 21 7:47 PM EDT documented as of this encounter Care Teams Assembler Tractor Relationship Specialty Start Date End Date Meredith Aranda NP PCP - General Family Medicine 09/24/19 11/15/23 Umesh Ortiz MD [address] [place] [address], [address] [place] [address] PCP - General Internal Medicine 11/16/23 05/06/24 Benita Gordon NP [address] [place] [address] PCP - General Nurse Practitioner 05/07/24 05/31/24 Benjamin Eugene PA-C [address] [place] [address] [email or web address] PCP - General Physician Lorry Weigher 06/01/24 Uziel Baez MD [address] [place] [address] [email or web address] Insurance Assigned Provider Internal Medicine 09/24/19 documented as of this encounter Additional Source Comments The information contained in this document represents components of the legal health record. It is not the complete legal health record.[facility]
--- OUTSIDE RECORDS SUMMARY | 2024-11-02 09:50 | XMS_ITS | Encounter Summary ---
Author Organization [facility] Address [address] [place] [address] Phone Care Team Providers Care Repairer And Checker Name Role Phone Brigette Vigil MD Primary Care Provider [phone] Encounter Details Date Type Department Care Team (Late st Contact Info) Description 01/13/2014 Orders Only [facility], [address] [place] [address] Social History Tobacco Use Types Packs/Day Years [...] on filedocumented in this encounter Care Teams Repairer And Checker Relationship Specialty Start Date End Date Brigette Vigil MD [address] [place] [address] [address] [place] [address] PCP - General 11/01/16 documented as of this encounter
--- OUTSIDE RECORDS SUMMARY | 2024-11-02 09:50 | XMS_ITS | Encounter Summary ---
Author Organization [facility] Address [address] [place] [address] Phone Care Team Providers Care Ball Point Splitter Name Role Phone Brigette Vigil MD Primary Care Provider [phone] Encounter Details Date Type Department Care Team (Late st Contact Info) Description 01/13/2014 Orders Only [facility], [address] [place] [address] Social History Tobacco Use Types Packs/Day Years [...] on filedocumented in this encounter Care Teams Ball Point Splitter Relationship Specialty Start Date End Date Brigette Vigil MD [address] [place] [address] [address] [place] [address] PCP - General 11/01/16 documented as of this encounter
--- OUTSIDE RECORDS SUMMARY | 2024-11-02 09:50 | XMS_ITS | Encounter Summary ---
Author Organization [facility] Address [phone] [facility] [place] [address] Care Team Providers Care Career Law Clerk Name Role Phone Umesh Ortiz MD Unavailable [phone] Meredith Aranda EARLY CHILDHOOD ASSOCIATE TEACHER Unavailable [phone] Meredith Aranda EARLY CHILDHOOD ASSOCIATE TEACHER Primary Care Provider Uziel Baez MD Primary Care Provider Meredith Aranda EARLY CHILDHOOD ASSOCIATE TEACHER Primary Care Provider Uziel Baez MD Unavailable [phone] Umesh Ortiz MD Primary Care Provider Benita Gordon EARLY CHILDHOOD ASSOCIATE TEACHER Primary Care Provider [phone] Benjamin Eugene PA-C Primary Care Provider [phone] Encounter Details Date Type Department Care Team (Late st Contact Info) Description 06/19/2018 Procedure Pass [facility], Ct Scan - [address] [address] Social History Tobacco Use Types Packs/Day Years [...] Info) Description 09/26/2025 3:20 PM EST Appointment [facility] Internal Medicine [address] [place] [address] Benjamin Eugene PA-C [address] [place] [address] [email or web address] documented as of this encounter Visit Diagnoses Not on filedocumented in this encounter Additional Health Concerns Infection Onset Date Last Indicated Resolved Time CoV-Exposed Comment:Recent close contact documented in the COVID-19 PCR/PRO order 12/08/2020 12/12/2020 12/23/2020 1:24 AM E DT CoV-Exposed Comment:Recent close contact [...] Noted Time PHQ-2 Depression Total Score: 0 02/25/20 3:15 PM EDT documented as of this encounter Care Teams Career Law Clerk Relationship Specialty Start Date End Date Meredith Aranda NP 40 [facility] [place] [address] [email or web address] PCP - General Family Medicine 12/09/17 08/01/19 Uziel Baez MD 40 [place] [address] [email or web address] PCP - General Internal Medicine 08/02/19 09/23/19 Meredith Aranda, EARLY CHILDHOOD ASSOCIATE TEACHER [address] [place] [address] [email or web address] PCP - General Family Medicine 09/24/19 11/15/23 Umesh Ortiz MD [address] [place] [address], [address] [place] [address] [email or web address] PCP - General Internal Medicine 11/16/23 05/06/24 Benita Gordon, SHIMA [address] [place] [address] PCP - General Nurse Practitioner 05/07/24 05/31/24 Benjamin Eugene PA-C [address] [place] [address] [email or web address] PCP - General Physician Grocery Supervisor 06/01/24 Umesh Ortiz MD [address] [place] [address] [email or web address] Historical LMR Provider 06/30/17 Meredith Aranda, EARLY CHILDHOOD ASSOCIATE TEACHER [address] [place] [address] [email or web address] Historical LMR Provider 06/30/17 09/23/19 Uziel Baez MD [address] [place] [address] [email or web address] Insurance Assigned Provider Internal Medicine 09/24/19 documented as of this encounter Additional Source Comments The information contained in this document represents components of the legal health record. It is not the complete legal health record.[facility]
--- OUTSIDE RECORDS SUMMARY | 2024-11-02 09:50 | XMS_ITS | Encounter Summary ---
Author Organization [facility] Address [phone] [facility] [place] [address] Care Team Providers Care Retail Greeter Name Role Phone Umesh Ortiz MD Unavailable Meredith Aranda FEEDER ASSOCIATE Unavailable [phone] Meredith Aranda FEEDER ASSOCIATE Primary Care Provider Uziel Baez MD Primary Care Provider Meredith Aranda FEEDER ASSOCIATE Primary Care Provider Uziel Baez MD Unavailable [phone] Umesh Ortiz MD Primary Care Provider Benita Gordon FEEDER ASSOCIATE Primary Care Provider [phone] Benjamin Eugene PA-C Primary Care Provider [phone] Encounter Details Date Type Department Care Team (Latest Contact Info) Description 12/30/2017 Transcribe Orders [facility] Laboratory [address] [place] [address] Shravan Owens MD [address] [place] [address] [email or web address] Nausea (Primary Dx) Social History Tobacco Use Types Packs/Day Years [...] Info) Description 09/26/2025 3:20 PM EST Appointment [facility] Internal Medicine [address] [place] [address] Benjamin Eugene PA-C [address] [place] [address] [email or web address] documented as of this encounter Results * TSH (12/30/2017 10:22 AM EDT) TSH 2.28 0.27 - 4.20 uIU/mL [facility] Blood 12/30/2017 10:2 2 AM EDT 12/30/2017 10:28 AM EDT Shravan Owens MD LAB BLOOD ORDERABLES [address] [address] * Immunoglobulin A (12/30/2017 10:22 AM EDT) IgA 223 70 - 400 mg/dL [facility] Blood 12/30/2017 10:2 2 AM EDT 12/30/2017 10:28 AM EDT Shravan Owens MD LAB BLOOD ORDERABLES [address] [address] * C-Reactive Protein (12/30/2017 10:22 AM EDT) C REACTIVE PROTEIN 0.1 0 - 0.5 mg/L [facility] Blood 12/30/2017 10:2 2 AM EDT 12/30/2017 10:28 AM EDT Shravan Owens MD LAB BLOOD ORDERABLES Performing Organization Address City/[facility]/ZIP Co de Phone Number [address] [address] * Comprehensive metabolic panel (12/30/2017 10:22 AM EDT) SODIUM 142 133 - 146 mmol/L [facility] POTASSIUM 4.1 3.3 - 5.1 mmol/L [facility] CHLORIDE 103 96 - 108 mmol/L [facility] CO2 28 21 - 35 mmol/L [facility] BUN 13 6 - 19 mg/dL [facility] CREATININE 0.70 0.5 - 1.5 mg/dL [facility] GLUCOSE 79 70 - 99 mg/dL [facility] ALBUMIN 4.2 3.9 - 4.8 g/dL [facility] TOTAL PROTEIN 7.6 6.5 - 8.0 g/dL [facility] CALCIUM 9.2 8.4 - 10.3 mg/dL [facility] ALKALINE PHOSPHATASE 75 39 - 117 U/L [facility] TOTAL BILIRUBIN 0.5 0.0 - 1.2 mg/dL [facility] AST 18 0 - 37 U/L [facility] ALT 16 0 - 40 U/L [facility] GLOBULIN 3.4 1 - 4.8 g/dL [facility] EGFR >120 >59 mL/min/1.7 3m2 [facility] Comment:If patient is black, multiply result by 1.159. The eGFR calculation has changed from the MDRD equation to the CKD-EPI equation as of November 15, 2017. ANION GAP 15 10 - 20 mmol/L [facility] Blood 12/30/2017 10:2 2 AM EDT 12/30/2017 10:28 AM EDT Shravan Owens MD LAB BLOOD ORDERABLES Performing Organization Address City/[facility]/ZIP Co de Phone Number [address] [address] * CBC (12/30/2017 10:22 AM EDT) WBC 6.82 3.40 - 11.20 K/uL [facility] RBC 4.49 3.80 - 4.80 M/uL [facility] HGB 13.2 12.0 - 15.0 g/dL [facility] HCT 38.7 36.0 - 46.0 % [facility] PLT 268 130 - 400 K/uL [facility] MCV 86.2 79.0 - 98.0 fL [facility] MCH 29.4 27.0 - 34.8 pg [facility] MCHC 34.1 31.5 - 36.0 g/dL [facility] RDW 12.5 10.8 - 14.6 % [facility] MPV 11.5 9.4 - 12.4 [facility] NRBC 0.00 /100 WBCs [facility] ABSOLUTE NRBC 0.00 K/uL [facility] Blood 12/30/2017 10:2 2 AM EDT 12/30/2017 10:28 AM EDT Shravan Owens MD LAB BLOOD ORDERABLES [facility] [address] [place] [address] * Tissue transglutaminase IgA (12/30/2017 10:22 AM EDT) TTG IGA ANTIBODY <1.2 <4.0 (Negative) U/mL [facility] DPT OF LAB MED AND PAT+ Blood 12/30/2017 10:2 2 AM EDT 12/30/2017 10:28 AM EDT Shravan Owens MD LAB BLOOD ORDERABLES [facility] DPT OF LAB MED AND PAT+ [address] [place] [address] documented in this encounter Visit Diagnoses Diagnosis Nausea- Primary Nausea alone documented in this encounter Additional Health Concerns Infection [...] Noted Time PHQ-2 Depression Total Score: 0 12/10/19 11:44 AM EDT documented as of this encounter Care Teams Retail Greeter Relationship Specialty Start Date End Date Meredith Aranda, FEEDER ASSOCIATE [address] [place] [address] [email or web address] PCP - General Family Medicine 12/09/17 08/01/19 Uziel Baez MD [address] [place] [address] [email or web address] PCP - General Internal Medicine 08/02/19 09/23/19 Meredith Aranda FEEDER ASSOCIATE [address] [place] [address] [email or web address] PCP - General Family Medicine 09/24/19 11/15/23 Umesh Ortiz MD [address] [place] [address], [address] [place] [address] PCP - General Internal Medicine 11/16/23 05/06/24 Benita Gordon, SHIMA [address] [place] [address] PCP - General Nurse Practitioner 05/07/24 05/31/24 Benjamin Eugene PA-C [address] [place] [address] PCP - General Physician Cylinder Dyer 06/01/24 Umesh Ortiz MD [address] [place] [address], [address] [place] [address] Historical LMR Provider 06/30/17 Meredith Aranda NP [address] [place] [address] Historical LMR Provider 06/30/17 09/23/19 Uziel Baez MD [address] [place] [address] Insurance Assigned Provider Internal Medicine 09/24/19 documented as of this encounter Additional Source Comments The information contained in this document represents components of the legal health record. It is not the complete legal health record.[facility]
--- OUTSIDE RECORDS SUMMARY | 2024-11-02 09:50 | XMS_ITS | Encounter Summary ---
Author Organization [facility] Address [phone] [facility] [place] [address] Care Team Providers Care Sanitary Landfill Supervisor Name Role Phone Umesh Ortiz MD Unavailable Meredith Aranda CAMPUS AMBASSADOR Unavailable [phone] Uziel Baez MD Primary Care Provider [phone] Meredith Aranda CAMPUS AMBASSADOR Primary Care Provider [phone] Uziel Baez MD Unavailable Umesh Ortiz MD Primary Care Provider Benita Gordon CAMPUS AMBASSADOR Primary Care Provider [phone] Benjamin Eugene PA-C Primary Care Provider Encounter Details Date Type Department Care Team (Latest Contact Info) Description 09/07/2019 Transcribe Orders Virtual Department [address] [place] [address] Fredy Hines MD [address] [place] [address] RUQ pain (Primary Dx); Nausea Social History Tobacco Use Types Packs/Day Years [...] Info) Description 09/26/2025 3:20 PM EST Appointment [facility] Internal Medicine [address] [place] [address] Benjamin Eugene PA-C [address] [place] [address] [email or web address] documented as of this encounter Results * FL UGI SERIES DOUBLE CONTRAST (09/20/2019 9:10 AM EST) Anatomical Region Laterality Modality Abdomen Radiographic Miri ging 09/20/2019 9:16 AM EST Impressions 09/20/2019 9:19 AM EST No segment of thickened esophageal or gastric duodenal abnormality apparent. FLUOROSCOPY TIME: 3 min. sec; 17 IMAGES/FRAMES POS - [id number] Narrative 09/20/2019 9:19 AM EST COMPARISON: None FINDINGS: A preliminary view of the abdomen reveals a moderate amount of colonic stool with a relative possibility of small bowel gas. ??No opaque calculi apparent. ??Mild left convex lumbar scoliotic curvature. A standard double contrast study was performed. ??Following ingestion of the contrast mixture deglutition was assessed fluoroscopically and found to be grossly normal. ??No evidence of hiatal hernia. ??Esophageal mucosal margins appear smooth. ??Stomach filled moderately well as without intrinsic disease with involvement of or displacement by extrinsic lesions. ??No distortion of rugal folds. ??There was some difficulty in obtaining optimal gaseous distention of the duodenal cap but no discrete ulcer crater or gross mucosal distortion were suggested. ??The remainder of the visualized proximal small bowel was unremarkable. ??No spontaneous gastroesophageal reflux was seen during the course of examination. Procedure Note Fredy Larkin MD - 09/20/2019 COMPARISON: None FINDINGS: A preliminary view of the abdomen reveals a moderate amount of colonicstool with a relative possibility of small bowel gas. No opaque calculiapparent. Mild left convex lumbar scoliotic curvature. A standard double contrast study was performed. Following ingestion ofthe contrast mixture deglutition was assessed fluoroscopically and foundto be grossly normal. No evidence of hiatal hernia. Esophageal mucosalmargins appear smooth. Stomach filled moderately well as withoutintrinsic disease with involvement of or displacement by extrinsiclesions. No distortion of rugal folds. There was some difficulty inobtaining optimal gaseous distention of the duodenal cap but no discreteulcer crater or gross mucosal distortion were suggested. The remainder ofthe visualized proximal small bowel was unremarkable. No spontaneousgastroesophageal reflux was seen during the course of examination. IMPRESSION: No segment of thickened esophageal or gastric duodenal abnormalityapparent. FLUOROSCOPY TIME: 3 min. sec; 17 IMAGES/FRAMES POS - [id number] Fredy Hines MD IMG [place] MISC documented in this encounter Visit Diagnoses Diagnosis RUQ pain- Primary Abdominal pain, right upper quadrant Nausea Nausea alone RUQ pain Abdominal pain, right upper quadrant Nausea Nausea alone documented in this encounter Additional [...] Noted Time PHQ-2 Depression Total Score: 0 08/28/20 19 8:40 AM EDT documented as of this encounter Care Teams Sanitary Landfill Supervisor Relationship Specialty Start Date End Date Uziel Baez MD [address] [place], [place] PCP - General Internal Medicine 08/02/19 09/23/19 Meredith Aranda, CAMPUS AMBASSADOR [address] [place], [place] PCP - General Family Medicine 09/24/19 11/15/23 Umesh Ortiz MD [address] [place] [address], [address] [place] [address] PCP - General Internal Medicine 11/16/23 05/06/24 Benita Gordon, SHIMA [address] [place] [address] PCP - General Nurse Practitioner 05/07/24 05/31/24 Benjamin Eugene, TRES [address] [place], [place] PCP - General Physician Drywall Finisher 06/01/24 Umesh Ortiz MD [address] [place] [address], [address] [place] [address] [email or web address] Historical LMR Provider 06/30/17 Meredith Aranda, CAMPUS AMBASSADOR [address] [place] [address] [email or web address] Historical LMR Provider 06/30/17 09/23/19 Uziel Baez MD [address] [place] [address] [email or web address] Insurance Assigned Provider Internal Medicine 09/24/19 documented as of this encounter Additional Source Comments The information contained in this document represents components of the legal health record. It is not the complete legal health record.[facility]
--- OUTSIDE RECORDS SUMMARY | 2024-11-02 09:50 | XMS_ITS | Encounter Summary ---
Author Organization [facility] Address [phone] [facility] [place] [address] Care Team Providers Care Er Medical Technician Name Role Phone Umesh Ortiz MD Unavailable Meredith Aranda MANAGER CASE MANAGEMENT Unavailable [phone] Uziel Baez MD Primary Care Provider Meredith Aranda MANAGER CASE MANAGEMENT Primary Care Provider Uziel Baez MD Unavailable Umesh Ortiz MD Primary Care Provider Benita Gordon MANAGER CASE MANAGEMENT Primary Care Provider [phone] Benjamin Eugene PA-C Primary Care Provider Encounter Details Date Type Department Care Team (Late st Contact Info) Description 08/03/2019 Procedure Pass [facility], [address] [place] [address] Social History Tobacco Use Types Packs/Day Years [...] Info) Description 09/26/2025 3:20 PM EST Appointment [facility] Internal Medicine [address] [place], [place] [id number] Benjamin Eugene PA-C [address] [place] [address] documented as of this encounter Visit Diagnoses [...] Noted Time PHQ-2 Depression Total Score: 0 05/09/20 8:40 AM EDT documented as of this encounter Care Teams Er Medical Technician Relationship Specialty Start Date End Date Uzeil Baez MD [address] [place] [address] PCP - General Internal Medicine 08/02/19 09/23/19 Meredith Aranda NP [address] [place] [address] PCP - General Family Medicine 09/24/19 11/15/23 Umesh Ortiz MD [address] [place] [address] PCP - General Internal Medicine 11/16/23 05/06/24 Benita Gordon NP [address] [place] [address] PCP - General Nurse Practitioner 05/07/24 05/31/24 Benjamin Eugene PA-C [address] [place] [address] PCP - General Physician Director Of Training 06/01/24 Umesh Ortiz MD [address] [place] [address] Historical LMR Provider 06/30/17 Meredith Aranda NP [address] [place] [address] Historical LMR Provider 06/30/17 09/23/19 Uziel Baez MD [address] [place] [address] Insurance Assigned Provider Internal Medicine 09/24/19 documented as of this encounter Additional Source Comments The information contained in this document represents components of the legal health record. It is not the complete legal health record.[facility]
--- OUTSIDE RECORDS SUMMARY | 2024-11-02 09:50 | XMS_ITS | Clinical Summary ---
Author Organization [facility] Address [phone] [facility] [place] [address] Care Team Providers Care Enterprise Systems Architect Name Role Phone Uziel Baez MD Unavailable [phone] Benjamin Eugene PA-C Primary Care Provider [phone] Allergies No known active allergies Medications Medication Sig Dispensed Refills Start Date End Date Status topiramate (TOPAMAX) 25 MG tablet Take 25 mg by mouth 2 (two) times a day. 04/29/2023 Active SUMAtriptan (IMITREX) 50 MG tablet Take 50 mg by mouth once as needed. 07/22/2023 Active pantoprazole (PROTONIX) 40 MG tablet Take 1 tablet by mouth daily. 05/08/2024 Active famotidine (PEPCID) 40 MG tablet Take 40 mg by mouth nightly at bedtime. 05/04/2024 Active cromolyn (GASTROCROM) 100 mg/5 mL solution Take 10 mL by mouth 4 (four) times a day. 05/15/2024 Active buPROPion (WELLBUTRIN SR) 150 MG SR 12 hr tablet Take 1 tablet (150 mg total) by mouth 2 (two) times a day with meals. 60 tablet 2 10/12/2024 Active buPROPion (WELLBUTRIN SR) 100 MG SR 12 hr tablet Take 1 tablet (100 mg total) by mouth 2 (two) times a day. 60 tablet 2 08/20/2024 10/12/2024 Discontinued Active Problems Problem Noted Date Diagnosed Date Annual physical exam 09/19/2024 Assessment & Plan (09/19/2024 12:58 PM EST): Labs obtained prior to her appointment and reviewed her labs. Patient was noted to have an LDL of 133. We discussed diet and exercise. We will repeat this next year. Annual physical follow-up 1 year. She is up-to-date on her Pap smear. Abdominal pain 06/18/2024 Assessment & Plan (07/09/2024 12:38 PM EDT): Patient has been seen by her GI at [facility] and has undergone HIDA scan, CT and an EGD. However patient continues to have some right upper quadrant pain and had version to certain foods. I have asked for Dr. Medellin who is marketing finance manager/high school foreign language tutor to evaluate her for her mast cell activation syndrome. She also has a barium swallow that is currently pending Assessment & Plan (06/18/2024 12:19 PM EDT): Patient with noted abdominal pain in the right upper quadrant and epigastric region. Her last scan at [facility] revealed gastric distention and has an upcoming EGD scheduled in October with her community center director. Given her symptoms I would also obtain an H. pylori test. Dysphagia 06/18/2024 Assessment & Plan (07/09/2024 12:37 PM EDT): Barium swallow pending Assessment & Plan (06/18/2024 12:20 PM EDT): Patient noted to have some dysphagia with solids and liquids and will obtain a barium swallow. Flu vaccine need 06/01/2024 Assessment & Plan (06/01/2024 12:46 PM EDT): Flu vaccine given SABAS (generalized anxiety disorder) 06/01/2024 Assessment & Plan (09/19/2024 12:57 PM EST): Her PHQ-9 is noted at 19. She is having increasing anxiety due to her current job situation where she is having a hard time adjusting. Patient has not been given the adequate support and is for lack of a better word being bullied at's at work. We had a long discussion with regards to her anxiety and I did explain that her mental health issues are #1 priority and if she feels as though is that this is not a the right fit then she should pursue other avenues. She mentions overall she feels that the Wellbutrin 100 mg p.o. twice daily is working well for her. We will continue this medication. Assessment & Plan (07/09/2024 12:37 PM EDT): Doing well on Wellbutrin 75 mg p.o. twice daily we will continue this dose for now. Assessment & Plan (06/18/2024 12:19 PM EDT): Patient had been started on Zoloft during her last office visit however this is not noticed to improve her symptoms therefore we will switch to a different drug class and will start Wellbutrin 75 mg p.o. twice daily. We will follow-up in 2 weeks Assessment & Plan (06/01/2024 12:49 PM EDT): Patient had been on Lexapro in the past however felt that this was not working and therefore was switched to fluoxetine and started out at 10 mg but then went up to 20 mg. 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 I will start her on 25 mg p.o. daily of Zoloft and follow-up with her in 2 weeks for med check. Discontinue fluoxetine. 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 I talked to her about having a couple of days of propranolol at a low dose just to provide some symptomatic relief and not make her groggy prior to taking her boards. Gastroesophageal reflux disease without esophagi tis 03/26/2021 Assessment & Plan (09/19/2024 12:56 PM EST): Patient noted to have epigastric pain but states that she stopped taking her Pepcid and pantoprazole. I recommended that she restart Pepcid 40 mg p.o. nightly and pantoprazole 40 mg daily. She has a gastric emptying study scheduled for next week and follows with GI at [facility]. Assessment & Plan (07/09/2024 12:37 PM EDT): Continue Pepcid 40 mg p.o. daily and 40 mg daily of Protonix Assessment & Plan (06/01/2024 12:46 PM EDT): Continue Protonix 40 mg p.o. daily Mast cell disorder 03/26/2021 Assessment & Plan (09/19/2024 12:57 PM EST): Patient continues to eat a bland diet and continues a dairy and gluten free diet. She does have an appointment with Dr. Medellin next week however she does need to reschedule this secondary to her new job. Continue cromolyn 10 mL 4 times daily Assessment & Plan (07/09/2024 12:37 PM EDT): Continue Pepcid 40 mg p.o. nightly and Protonix 40 mg p.o. daily Continue cromolyn 10 mL 4 times daily Discontinue Claritin and start Zyrtec twice daily Referral to Dr. Medellin for allergy testing and further information on mast cell Assessment & Plan (06/18/2024 12:18 PM EDT): Continue cromolyn 10 mL 4 times daily, famotidine 40 mg nightly and Protonix 40 mg daily. Add Claritin 10 mg daily Assessment & Plan (06/01/2024 12:45 PM EDT): Continue cromolyn 10 mL 4 times daily Hx of migraines 03/26/2021 Assessment & Plan (09/19/2024 12:57 PM EST): Well-controlled on Topamax 25 mg p.o. twice daily and Imitrex 50 mg as needed. Assessment & Plan (07/09/2024 12:38 PM EDT): Continue Imitrex and Topamax Assessment & Plan (06/01/2024 12:47 PM EDT): Continue Topamax 25 mg p.o. twice daily and Imitrex 50 mg p.o. as needed Sural neuritis, right 12/15/2020 RUQ pain 08/23/2019 Assessment & Plan (06/01/2024 12:46 PM EDT): Right upper quadrant pain with noted diarrhea and nausea with a 10 pound weight loss. Ultrasound negative LFTs within normal limits. She does have an MRI scheduled for this coming Tuesday. However given her symptoms and history as well as physical examination I think that she most likely has cholecystitis and therefore I will order a HIDA scan. Assessment & Plan (08/23/2019 4:47 PM EST): This patient with RUQ abdominal pain and [...] day. Arthralgia of left temporomandibular joint 05/09 Family history of heart disease 12/09/2017 Encounters Date Type Department Care Team Description 10/06/2024 8:07 AM EST - 10/06/2024 11:59 PM EST Hospital Encounter [facility] [address] [place] [address] Benjamin Eugene PA-C Discharge Disposition: Home or Self Care 10/02/2024 Telephone [facility] Internal [facility] [address] [place] [address] Benjamin Eugene PA-C Hepatitis B 09/27/2024 Orders Only [facility] [address] [place] [address] Provider, MD Jil 09/19/2024 9:40 AM EST Office Visit [facility] [address] [place] [address] Benjamin Eugene PA-C Annual physical exam (Primary Dx); Mast cell disorder; Gastroesophageal reflux disease without esophagitis; SABAS (generalized anxiety disorder); Hx of migraines 09/15/2024 8:03 AM EST - 09/15/2024 11:59 PM EST Hospital Encounter [facility] [address] [place] [address] Benjamin Eugene PA-C Discharge Disposition: Home or Self Care 09/11/2024 Telephone [facility] Internal Medicine [address] [place] [address] Benjamin Eugene PA-C Labs 08/13/2024 10:50 AM EST Office Visit [facility] [address] [place] [address] [place] [address] [facility] CenterjazzmineTresa crawford, Maricarmen Otoole MD Encounter for gynecological examination without abnormal finding (Primary Dx) 08/07/2024 Orders Only [facility] Internal [facility] [address] [place] [address] Provider, MD Jil from Last 3 Months Immunizations Name Administration Dates Next Due COVID-19 (Pre-07/04) Pfizer Vaccine, mRNA, PF 12/12/2020,11/21/2020 COVID-19, Unspecified Formulation 08/16/2024 DTaP 2002, 0,04/30/1999,03/02,1998 Dtap, 5 Pertussis Antigens 2002,,04/30/1999,03/02,1998 [id number] FORMULATION 07/09/2009 [id number] 07/09/2009 HPV,quadrivalent 02/16/2013,05/09/2012, 2 Hepatitis B 07/29/1999,1998,1998 Hepatitis B CpG 08/28/2024 Hib,HbOC 02/16/2000, 9,03/02/1999,12/31 IPV 2002, 0,03/02/1999,12/31 Influenza Quadrivalent MDCK Preservative Free IM 09/08/2023 Influenza Quadrivalent Prese rvative Free IM 06/09/2020,06/28/2019,06/28/2018,06/29,07/20/2016 Influenza Trivalent Preserva tive Free IM 06/01/2024,05/16/2013 Influenza Trivalent w/ Preservative IM 1 ,07/31/2012,07/29/2011,07/30 MMR 11/12/2003,02/16/2000 Meningococcal MCV4, unspecif ied Formulation 07/20/2016,12/23/2010 Meningococcal MCV4P 07/20/2016,12/23/2010 PPD Test 09/24/2019 Tdap 03/26/2021,12/23/2010 Varicella 12/10/2009,11/04/1999 Family History Medical History Relation Comments No Known Problems Brother Hypertension Father Heart attack Maternal Aunt Heart disease Maternal Aunt Thyroid cancer Maternal Aunt Diabetes Maternal Grandfather Heart attack Maternal Grandfather No Known Problems Mother Hypertension Paternal Grandfather Developmental delay Sister Esophagitis Sister eosinophilic Gallbladder disease Sister Hyperthyroidism Sister Mitral valve prolapse Sister Osteoporosis Sister Raynaud syndrome Sister Rheumatoid arthritis Sister Seizures Sister Colon cancer Unspecified Relation Status Comments Brother Alive Father Alive Maternal Aunt Alive Maternal Grandfather Mother Alive Paternal Grandfather Sister Alive Unspecified Alive Social History Tobacco Use Types Packs/Day Years Used Date Smoking Tobacco: Never Smokeless Tobacco: Never Tobacco Cessation:Counseling Given: Not Answered Alcohol Use Standard Drinks/Week Comments Not Currently [...] high school, GED, job training, learning the Icelandic language, technical skills, or developing parenting skills)? [...] Orientation Straight 03/11/2019 12 :13 PM EDT Last Filed Vital Signs Vital Sign Reading Time Taken Comments Blood Pressure 114/76 09/19/2024 9:34 AM EST Pulse 91 09/19/2024 9:34 AM EST Temperature 36.8 ??C (98.3 ??F) 05/07/2024 4:01 AM ED T Respiratory Rate 16 09/19/2024 9:34 AM EST Oxygen Saturation 99% 09/19/2024 9:34 AM EST Inhaled Oxygen Concentration - - Weight 68.8 kg (151 lb 9.6 oz) 09/19/2024 9:34 A M EST Height 157.5 cm (5' 2.01 ) 09/19/2024 9:34 AM ES T Body Mass Index 27.72 09/19/2024 9:34 AM EST Plan of Treatment Upcoming Encounters Date Type Department Care Team (Late st Contact Info) Description 09/26/2025 3:20 PM EST Appointment [facility] Internal Medicine [address] [place] [address] Benjamin Eugene PA-C [address] [place] [address] [email or web address] Health Maintenance Due Date Last Done Comments HEPATITIS B SCREENING 2016 COVID-19 VACCINE ( season) 2024 08/16/2024, 08/16/2024, 07/29/2022, Additional history exists REPEAT PHQ 10/20/2024 09/19/2024, 09/19/2024 DEPRESSION SCREENING 09/19/2025 09/19/2024, 09/19/19 25 PAP SMEAR 08/13/2027 08/13/2024 Adult Td,Tdap Booster 03/26/2031 03/26/2021, 011 HIB VACCINES Completed 02/16/2000, 04/12, 03/02/1999, Additional history exists HPV VACCINES Completed 02/16/2013, 04/13, 02/16/2012 MENINGOCOCCAL VACCINES (ACWY) Completed 07/20/2016, 07/20/2016, 12/23/2010, Additional history exists HEPATITIS C SCREENING Completed 03/26/2021 HIV ONE-TIME SCREENING (18-65 YEARS) Completed 03/26/2021 INFLUENZA VACCINE Completed 06/01/2024, , 06/09/2020, Additional history exists SMOKING STATUS SCREENING (Once After 26 Yrs) Completed 09/19/2024 HEPATITIS A VACCINES Aged Out No long er eligible based on patient's age to complete this topic PNEUMOCOCCAL VACCINES (0-49 years) Aged Out No longer eligible based on patient's age to complete this topic Medical Devices Not on file Procedures Procedure Name Priority Date/Time Associated Diagnosis Comments HEPATITIS B SURFACE ANTIBODY Routine 10/06/2024 8:16 AM EST Immunity status testing HEPATITIS B CORE ANTIBODY, TOTAL Routine 10/06/2024 8:16 AM EST Immunity status testing OUTSIDE IMAGING Routine 09/26/2024 3:49 PM EST COMPREHENSIVE METABOLIC PANEL Routine 09/15/2024 8:06 AM EST Annual physical exam TSH WITH REFLEX Routine 09/15/2024 8:06 AM EST Annual physical exam LIPID PANEL Routine 09/15/2024 8:06 AM EST Annual physical exam GLUCOSE, FASTING Routine 09/15/2024 8:06 AM EST Annual physical exam PAP TEST Routine 08/13/2024 12:00 AM EST HEPATITIS C ANTIBODY, QUALITATIVE Routine 03/26/2021 9:26 AM EDT Routine general medical examination at a health care facility from Last 3 Months or Most Recently Relevant to Health Maintenance Results * Hepatitis B core antibody, total (10/06/2024 8:16 AM EST) HEP B CORE AB, TOT NON-REACTI VE NON-REACTI VE [facility] Blood 10/06/2024 8:16 AM EST 10/06/2024 8:18 AM EST Benjamin Eugene PA-C LAB BLOOD ORDERABLES [address] [address] * Hepatitis B surface antibody (10/06/2024 8:16 AM EST) HBV SURFACE ANTIBODY Positive [facility] Comment: Unvaccinated: Negative Vaccinated: Positive Blood 10/06/2024 8:16 AM EST 10/06/2024 8:18 AM EST Benjamin Eugene PA-C LAB BLOOD ORDERABLES Performing Organization Address [facility] Co de Phone Number [address] [address] * Outside Imaging Report Only (09/26/2024 3:49 PM EST) Historical Provider IMG XR CHEST * Glucose, fasting (09/15/2024 8:06 AM EST) FASTING GLUCOSE 95 70 - 95 mg/dL [facility] Blood 09/15/2024 8:06 AM EST 09/15/2024 8:10 AM EST Benjamin Eugene PA-C LAB BLOOD ORDERABLES Performing Organization Address [facility] de Phone Number [address] [address] * Comprehensive metabolic panel (09/15/2024 8:06 AM EST) SODIUM 139 133 - 146 mmol/L [facility] POTASSIUM 4.2 3.3 - 5.1 mmol/L [facility] CHLORIDE 105 96 - 108 mmol/L [facility] CO2 25 21 - 35 mmol/L [facility] BUN 10 6 - 19 mg/dL [facility] CREATININE 1.00 0.5 - 1.5 mg/dL [facility] GLUCOSE 96 70 - 99 mg/dL [facility] ALBUMIN 4.5 3.9 - 4.8 g/dL [facility] TOTAL PROTEIN 7.8 6.5 - 8.0 g/dL [facility] CALCIUM 9.7 8.4 - 10.3 mg/dL [facility] ALKALINE PHOSPHATASE 70 39 - 117 U/L [facility] TOTAL BILIRUBIN 0.9 0.0 - 1.2 mg/dL [facility] AST 13 0 - 37 U/L [facility] ALT 8 0 - 40 U/L [facility] GLOBULIN 3.3 1 - 4.8 g/dL [facility] EGFR 80 >59 mL/min/1.7 3m2 [facility] Comment:Estimated glomerular filtration rate calculated using the CKD-EPI refit equation. ANION GAP 13 10 - 20 mmol/L [facility] Blood 09/15/2024 8:06 AM EST 09/15/2024 8:10 AM EST Benjamin Eugene PA-C LAB BLOOD ORDERABLES Performing Organization Address City/[facility]/ZIP Co de Phone Number [address] [address] * TSH with reflex (09/15/2024 8:06 AM EST) TSH 2.25 0.27 - 4.20 uIU/mL [facility] Blood 09/15/2024 8:06 AM EST 09/15/2024 8:10 AM EST Benjamin Eugene PA-C LAB BLOOD ORDERABLES Performing Organization Address [facility] Co de Phone Number [address] [address] * (ABNORMAL) Lipid panel (09/15/2024 8:06 AM EST) HDL 57 mg/dL [facility] Comment: ? Interpretation <40 mg/dL: Low HDL cholesterol (major risk factor for CHD) Greater than or equal to 60 mg/dL: High HDL cholesterol ( negative risk factor for CHD) HDL - cholesterol is affected by a number of factors, e.g. smoking, excerise, hormones, sex and age. CHOLESTEROL 203 0 - 240 mg/dL [facility] TRIGLYCERIDES 67 30 - 160 mg/dL [facility] LDL 133(H) 50 - 129 mg/dL [facility] Comment: LDL levels in terms of risk for coronary heart disease: <100 mg/dL: Optimal 100-129 mg/dL: Near or above optimal 130-159 mg/dL: Borderline high 160-189 mg/dL: High >190 mg/dL: Very High CARDIAC RISK RATIO 3.6 3.3 - 4.4 C [facility] Blood 09/15/2024 8:06 AM EST 09/15/2024 8:10 AM EST Benjamin Eugene PA-C LAB BLOOD ORDERABLES [address] [address] * Pap Test (08/13/2024 12:00 AM EST) 08/13/2024 08/14/2024 9:1 9 AM EST Narrative SEE NARRATIVE - 08/15/2024 3:46 PM EST [address] [address] Criminal Justice Professor: Dieudonne Laurent MD ?? [employer] Cytology Report FINAL DIAGNOSIS A. ??PAP SMEAR (THIN PREP) CE: SPECIMEN ADEQUACY: Satisfactory for evaluation; transformation zone present. INTERPRETATION: NEGATIVE FOR INTRAEPITHELIAL LESION OR MALIGNANCY. This specimen was analyzed by the automated ThinPrep Imaging System ([email or web address] and manually rescreened by a plastic jig and fixture builder and/or pathologist. Electronically Signed Out By: ??MD Lizbeth Estrada CT(ASCP) By his/her signature above, the pathologist listed as making the Final Diagnosis certifies that he/she has personally reviewed this case and confirmed or corrected the diagnosis. The Pap test is a screening test primarily for squamous cancers and precursors and has associated false-negative and false-positive results. ??New technologies such as liquid-based preparations may decrease but will not eliminate all false-negative results. ??Regular sampling and follow-up of unexplained clinical signs and symptoms are recommended to minimize false negative results. CLINICAL HISTORY Date of Last Menstrual Period: ??07-23-2024 Other Clinical Conditions: ??Screening Pap SPECIMEN SOURCE A: PAP SMEAR (THIN PREP) CE Patient Name: ??TUYET PAULSON : ??2000 (Age: 23) Sex: ??F Institution: ??[facility] Location: ??[facility] Date of Collection: ??08/13/2024 Date of Reported: ??08/15/2024 15:46 Results to: Maricarmen Horvath Maricarmen Murillo MD CYTOLO GY ORDERABLES SEE NARRATIVE * Hepatitis C antibody, qualitative (03/26/2021 9:26 AM EDT) HCV NON-REACTIV E NON-REACTI VE [facility] Blood 03/26/2021 9:26 AM EDT 03/26/2021 9:31 AM EDT Meredith Aranda NP LAB BLOOD ORDERABLES [facility] [address] [place], [place] [id number] from Last 3 Months or Most Recently Relevant to Health Maintenance Care Teams Enterprise Systems Architect Relationship Specialty Start Date End Date Benjamin Eugene PA-C [address] [place] [phone] [email or web address] PCP - General Physician Crm Manager 06/01/24 Uziel Baez MD [address] [place] [phone] [email or web address] Insurance Assigned Provider Internal Medicine 09/24/19 Additional Source Comments The information contained in this document represents components of the legal health record. It is not the complete legal health record.[facility]
--- OUTSIDE RECORDS SUMMARY | 2024-11-02 09:50 | XMS_ITS | Encounter Summary ---
Author Organization [facility] Address [address] [place] [phone] Phone Care Team Providers Care Medical Device Sales Consultant Name Role Phone Brigette Vigil MD Primary Care Provider [phone] Encounter Details Date Type Department Care Team (Late st Contact Info) Description 01/13/2014 Orders Only [facility], [address] [place] [address] Social History Tobacco Use Types Packs/Day Years [...] on filedocumented in this encounter Care Teams Medical Device Sales Consultant Relationship Specialty Start Date End Date Brigette Vigil MD [address] [place] [address] [address] [place] [address] PCP - General 11/01/16 documented as of this encounter
--- OUTSIDE RECORDS SUMMARY | 2024-11-02 09:50 | XMS_ITS | Encounter Summary ---
Author Organization [facility] Address [phone] [place] [address] Care Team Providers Care Value Engineer Name Role Phone Uziel Baez MD Unavailable [phone] Benjamin Eugene PA-C Primary Care Provider [phone] Encounter Details Date Type Department Care Team (Late st Contact Info) Description 07/10/2024 Transcribe Orders Virtual Department [address] [place] [address] Geronimo Warren MD [address] [place] [address] Dr Vidales [address] [place] [address] RUQ pain (Primary Dx) Social History Tobacco Use Types Packs/Day Years Used Date Smoking Tobacco: Never Smokeless Tobacco: Never Alcohol Use Standard Drinks/Week Comments Yes 0 (1 standard drink = 0.6 oz pur e alcohol) 1-2 drinks, monthly or less Child or Family Care Answer Date Record ed Do you have problems with on e of the following making it difficult for you to work, study, or receive health care? No 03/23/2021 Education Answer Date Recorded Are you interested in more education? Not on juanito e 04/05/2023 Are you concerned about learning? Not on file 04/05/2023 No 04/05/2023 No 04/05/2023 Food Answer Date Recorded Within the past [...] basis, and looking for work? No 03/23/2021 Digital Access Answer Date Recorded No 02/07/2023 No 02/07/2023 Reliable internet access at home? Not on file 02/07/2023 Device with a working camera? Not on file Intimate Partner Violence Answer Date R ecorded Are you denied basic needs s uch as food, clothing, or medical care? No 06/01/2024 In the past 12 months have y ou been in a relationship with a person who hurts, threatens, or tries to control you? No 06/01/2024 Are you denied basic needs s uch as food, clothing, or medical care? No 06/01/2024 In the past 12 months have y ou been in a relationship with a person who hurts, threatens, or tries to control you? No 06/01/2024 Sex and Gender Information Value Date Recorded Sex Assigned at Female 03/11/2019 12:13 PM EDT Gender Identity Female 03/11/2019 12:13 PM EDT Sexual Orientation Straight 03/11/2019 12 :13 PM EDT documented as of this encounter Plan of Treatment Upcoming Encounters Date Type Department Care Team (Late st Contact Info) Description 09/26/2025 3:20 PM EST Appointment [facility] Internal Medicine [address] [place] [address] Benjamin Eugene PA-C [address] [place] [address] [email or web address] documented as of this encounter Results * FL UGI SERIES DOUBLE CONTRAST (07/19/2024 9:11 AM EST) Anatomical Region Laterality Modality Abdomen Computed Radiogr aphy 07/19/2024 11:3 6 AM EST Impressions 07/19/2024 12:45 PM EST No gross mucosal pathology visualized fluoroscopically. FLUOROSCOPY TIME: 1 MINUTE 5 SECONDS NUMBER OF IMAGES: 113 Examination was performed by RRA, Ronaldo Warren, under direct supervision by Dr. Rashard Valdovinos. ATTESTATION: I, Rashard Valdovinos as teaching physician, have reviewed the images for this case and if necessary edited the report originally created by Ronaldo Warren. Narrative 07/19/2024 12:45 PM EST FL UGI SERIES DOUBLE CONTRAST HISTORY: Right upper quadrant pain. Gastroesophageal reflux disease. COMPARISON: Upper GI series 09/20/2019. FINDINGS: A preliminary view of the abdomen demonstrates a nondistended bowel gas pattern. Redemonstration of mild left convex lumbar scoliotic curvature. ESOPHAGUS: ?Motility: ??Within normal limits. ?Mucosa: ??No gross mucosal pathology demonstrated fluoroscopically. ??Distensibility: Normal. GASTROESOPHAGEAL JUNCTION: ??No evidence of hiatal hernia. GASTROESOPHAGEAL REFLUX: ??None observed. STOMACH: ??Normally distensible and demonstrates normal contours and mucosal pattern. DUODENUM: ??Bulb and sweep are normal. ??Duodenal-jejunal junction is in the normal expected position. Procedure Note Rashard Valdovinos MD - 07/19/2024 FL UGI SERIES DOUBLE CONTRAST HISTORY: Right upper quadrant pain. Gastroesophageal reflux disease. COMPARISON: Upper GI series 09/20/2019. FINDINGS: A preliminary view of the abdomen demonstrates a nondistended bowel gaspattern. Redemonstration of mild left convex lumbar scoliotic curvature. ESOPHAGUS: Motility: Within normal limits. Mucosa: No gross mucosal pathology demonstrated fluoroscopically. Distensibility: Normal. GASTROESOPHAGEAL JUNCTION: No evidence of hiatal hernia. GASTROESOPHAGEAL REFLUX: None observed. STOMACH: Normally distensible and demonstrates normal contours andmucosal pattern. DUODENUM: Bulb and sweep are normal. Duodenal-jejunal junction is in thenormal expected position. IMPRESSION: No gross mucosal pathology visualized fluoroscopically. FLUOROSCOPY TIME: 1 MINUTE 5 SECONDS NUMBER OF IMAGES: 113 Examination was performed by RRA, Ronaldo Warren, under direct supervisionby Dr. Rashard Valdovinos. ATTESTATION: I, Rashard Valdovinos as teaching physician, have reviewed theimages for this case and if necessary edited the report originally createdby Ronaldo Warren. Geronimo Warren MD IMG FL MISC documented in this encounter Visit Diagnoses Diagnosis RUQ pain- Primary Abdominal pain, right upper quadrant RUQ pain Abdominal pain, right upper quadrant documented in this encounter Additional Health Concerns Assessment Noted Time PHQ-2 Depression Total Score: 1 06/01/20 7:27 AM EDT documented as of this encounter Care Teams Value Engineer Relationship Specialty Start Date End Date Benjamin Eugene PA-C [address] [place] [address] PCP - General Physician Jewelry Consultant 06/01/24 Uziel Baez MD [address] [place] [address] Insurance Assigned Provider Internal Medicine 09/24/19 documented as of this encounter Additional Source Comments The information contained in this document represents components of the legal health record. It is not the complete legal health record.[facility]
--- OUTSIDE RECORDS SUMMARY | 2024-11-02 09:50 | XMS_ITS | Encounter Summary ---
Author Organization [facility] Address [phone] [facility] [place] [address] Care Team Providers Care English Language Learner Teacher Name Role Phone Uziel Baez MD Unavailable [phone] Benita Gordon NP Primary Care Provider [phone] Benjamin EugeneC Primary Care Provider [phone] Encounter Details Date Type Department Care Team (Late st Contact Info) Description 05/07/2024 Procedure Pass [facility], Ct Scan - [address] [address] Social History Tobacco Use Types Packs/Day Years [...] with a working camera? Not on file Sex and Gender Information Value Date Recorded Sex Assigned at Female 03/11/2019 12:13 PM EDT Gender Identity Female 03/11/2019 12:13 PM EDT Sexual Orientation Straight 03/11/2019 12 :13 PM EDT documented as of this encounter Plan of Treatment Upcoming Encounters Date Type Department Care Team (Late st Contact Info) Description 09/26/2025 3:20 PM EST Appointment [facility] Internal Medicine [address] [place] [address] Benjamin Eugene PA-C [address] [place] [address] [email or web address] documented as of this encounter Visit Diagnoses Not on filedocumented in this encounter Additional Health Concerns Assessment Noted Time PHQ-2 Depression Total Score: 0 07/02/20 22 1:23 PM EDT documented as of this encounter Care Teams English Language Learner Teacher Relationship Specialty Start Date End Date Benita Gordon NP [address] [place] [address] PCP - General Nurse Practitioner 05/07/24 05/31/24 Benjamin Eugene PA-C [address] [place] [email or web address] PCP - General Physician Pin Feather Machine Operator 06/01/24 Uziel Baez MD [address] [place] [address] [email or web address] Insurance Assigned Provider Internal Medicine 09/24/19 documented as of this encounter Additional Source Comments The information contained in this document represents components of the legal health record. It is not the complete legal health record.[facility]
--- OUTSIDE RECORDS SUMMARY | 2024-11-02 09:50 | XMS_ITS | Clinical Summary ---
Author Organization [facility] Address [address] [place] [address] Phone Care Team Providers Care Weatherization Installer Name Role Phone Brigette Vigil MD Primary Care Provider [phone] Immunizations Immunization Administration Dates Next Due DTaP 5 2002, 0,04/30/1999,03/02,1998 H1N1 Nasal 07/09/2009 HPV, Quadrivalent 02/16/2013,05/09/2012,02/16/20 12 Hep B, ped/adol 07/29/1999,1998,1998 Hib (HbOC) 02/16/2000, 9,03/02/1999,12/31 IPV 2002, 0,03/02/1999,12/31 Influenza, injectable, quadr ivalent, preservative free 07/20/2016 Influenza, injectable, triva lent, preservative free 07/09/2014,05/16/2013,07/31/2012,07/29,07/30/2010 MMR 11/12/2003,02/16/2000 Meningococcal Conj (Menactra) MCV4P 07/20/2016,0 12/23/2010 Tdap 12/23/2010 Varicella 12/10/2009,11/04/1999 Social History Tobacco Use Types Packs/Day Years Used Date Smoking Tobacco: Never Comments:Never Smoker Comments Unknown Sex and Gender Information Value Date Recorded Sex Assigned at Not on file Legal Sex Female 4:32 PM EST Gender Identity Not on file Sexual Orientation Not on file Last Filed Vital Signs Vital Sign Reading Time Taken Comments Blood Pressure 116/78 05/04/2016 11:31 AM EDT Pulse - - Temperature 36.7 ??C (98 ??F) 09/03/2016 3:51 PM EST Respiratory Rate - - Oxygen Saturation 98% 06/22/2016 3:43 PM EDT Inhaled Oxygen Concentration - - Weight 77.6 kg (171 lb) 09/03/2016 3:51 PM EST Height 156.2 cm (5' 1.5 ) 05/15/2015 3:20 PM EDT Body Mass Index - - Plan of Treatment Health Maintenance Due Date Last Done Comments DTaP,Tdap,and Td Vaccines (7 - Td or Tdap) 12/23/2020 12/23/2010, 2002, 05/17/2000, Additional history exists Influenza Vaccines (#1) 2024 07/20/20 16, 07/09/2014, 05/16/2013, Additional history exists COVID-19 Vaccine ( - season) 2024 Hepatitis B Vaccines Completed 07/29/1999, 1998, 1998 HIB Vaccines Completed 02/16/2000, 04/12, 03/02/1999, Additional history exists IPV Vaccines Completed 2002, 01/2000, 03/02/1999, Additional history exists MMR Vaccines Completed 11/12/2003, 02/16/2000 Varicella Vaccines Completed 12/10/2009, 11/04/1999 HPV Vaccines Completed 02/16/2013, 04/13, 02/16/2012 Meningococcal Vaccine Completed 07/20/2016, 011 Hepatitis A Vaccines Aged Out No long er eligible based on patient's age to complete this topic Men B Vaccine Aged Out No longer elig ible based on patient's age to complete this topic Pneumococcal Vaccine Aged Out No long er eligible based on patient's age to complete this topic Care Teams Weatherization Installer Relationship Specialty Start Date End Date Brigette Vigil MD [address] [place] [address] Dr [address] [place] [address] PCP - General 11/01/16
== END 2024-11-02 09:58 | disposition home or self-care (01) ==
PROVIDERS: PCP Nurse Practitioner Family; Visit Provider Internal Medicine Gastroenterology
DX: R10.13 Epigastric pain (principal)
CPT/HCPCS: 99213

== ENCOUNTER → 2024-11-02 09:23 | Outpatient (BNVA) | payer OTHER, SELFPAY | PROVIDERS: PCP Nurse Practitioner Family; Visit Provider Internal Medicine Gastroenterology ==

== ENCOUNTER → 2025-01-14 14:31 | Outpatient (BNVA) | payer SELFPAY | PROVIDERS: PCP Nurse Practitioner Family; Visit Provider Internal Medicine Gastroenterology ==

== ENCOUNTER 2025-01-17 07:09 | Outpatient (REF) | payer OTHER, SELFPAY ==
--- OUTSIDE RECORDS SUMMARY | 2025-01-17 07:12 | XMS_ITS | Referral Summary ---
Author Organization [facility] Address [address] [place] [address] Care Team Providers Care Explosives Operator Name Role Phone Meredith Aranda NP Primary [...] Plan of Treatment Not on file [place] [address] [place] [address] [place] [id number] Care Teams Explosives Operator Relationship Specialty Start Date End Date Meredith Aranda NP PCP - General Family Medicine 01/19/23
--- OUTSIDE RECORDS SUMMARY | 2025-01-17 07:12 | XMS_ITS | Encounter Summary ---
Author Organization [facility] Address [address] [place] [address] Phone Care Team Providers Care Damage Assessor Name Role Phone Brigette Vigil MD Primary Care Provider [phone] Encounter Details Date Type Department Care Team (Late st Contact Info) Description 12/17/2013 Orders Only [facility], [address] [place] [address] Social History Tobacco Use Types Packs/Day Years [...] on filedocumented in this encounter Care Teams Damage Assessor Relationship Specialty Start Date End Date Brigette Vigil MD [address] [place] [address] [address] [place] [address] PCP - General 11/01/16 documented as of this encounter
--- OUTSIDE RECORDS SUMMARY | 2025-01-17 07:13 | XMS_ITS | Encounter Summary ---
Author Organization [facility] Address [address] [place] [address] [place] [address] Phone Care Team Providers Care Chemist Organic Name Role Phone Uziel Baez MD Unavailable [phone] Benjamin Eugene PA-C Primary Care Provider [phone] Encounter Details Date Type Department Care Team (Late st Contact Info) Description 07/10/2024 Transcribe Orders Virtual Department [address] [place] [address] Geronimo Warren MD [address] [place] [address] Dr Vidales [address] [place] [address] RUQ pain (Primary Dx) Social History Tobacco [...] Upcoming Encounters Date Type Department Care Team ([facility] st Contact Info) Description 04/24/2025 3:00 PM EDT Office Visit [facility] Pulmonary, Allergy and Critical Care Medicine [address] [place] [address] Rashard Medellin MD [address] [phone] [email or web address] 09/26/2025 3:20 PM EST Appointment [facility] Internal Medicine [address] [place] [address] Benjamin Eugene PA-C [address] [place] [address] [email or web address] documented as of this encounter Results * [...] 113 Examination was performed by RRA, Ronaldo Wraren, under direct supervisionby Dr. Rashard Valdovinos. ATTESTATION: [...] Time PHQ-2 Depression Total Score: 1 06/01/20 24 7:27 AM EDT documented as of this encounter Care Teams Chemist Organic Relationship Specialty Start Date End Date Benjamin Eugene PA-C [address] [place] [address] PCP - General Physician Print Designer 06/01/24 Uziel Baez MD [address] [place] [address] Insurance Assigned Provider Internal Medicine 09/24/19 documented as of this encounter Additional Source Comments The information contained in this document represents components of the legal health record. It is not the complete legal health record.[facility]
--- OUTSIDE RECORDS SUMMARY | 2025-01-17 07:13 | XMS_ITS | Encounter Summary ---
Author Organization [facility] Address [address] [address] Phone Care Team Providers Care Manager Intelligence Name Role Phone Uziel Baez MD Unavailable Benjamin Eugene PA-C Primary Care Provider [phone] Reason for Visit * Reason Onset Date Comments Establish Care 12/20/2024 Encounter Details Date Type Department Care Team (Late st Contact Info) Description 12/20/2024 Telephone [facility] Pulmonary, Allergy and Critical Care Medicine [address] [place], [place] [phone] Benjamin Eugene PA-C [address] [place] [address] [email or web address] Establish Care Social History Tobacco Use Types Packs/Day [...] high school, GED, job training, learning the [place]ian language, technical skills, or developing parenting skills)? [...] as of this encounter Progress Notes * Carmen Gandhi - 01/10/2025 4:59 PM EDT Patient has been scheduled * Kelli De Santiago - 12/21/2024 3:50 PM EDT PT mom Magan called to schedule an apt for pt. Requesting a later in the day appt scheduled Please advise. Central Support Log Pond Worker (Please do not reply to this user; this inbox is not monitored.) Thank you. * Dulce Maria Fleming - 12/20/2024 4:11 PM EDT Patient called in to schedule a NPV. Referral is on file. Patient stated it is best to call anytimebetween 11:30-12:30 or after 3:30. Please contact and advise. Central Support Log Pond Worker (Please do not reply to this user; this inbox is not monitored.) Thank you. documented in this encounter Plan of Treatment Upcoming Encounters Date Type Department Care Team (Late st Contact Info) Description 04/24/2025 3:00 PM EDT Office Visit [facility] Pulmonary, Allergy and Critical Care Medicine [address] [place] [address] Rashard Medellin MD [address] [place] [address] 09/26/2025 3:20 PM EST Appointment [facility] [place] Internal Medicine [address] [place], [place] [phone] Benjamin Eugene PA-C [address] [place] [address] documented as of this encounter Visit Diagnoses Not on filedocumented in this encounter Additional Health Concerns Assessment Noted Time PHQ-9 Depression Total Score: 8 11/30/19 25 8:53 PM EDT PHQ-2 Depression Total Score: 1 11/30/19 25 8:53 PM EDT documented as of this encounter Care Teams Manager Intelligence Relationship Specialty Start Date End Date Benjamin Eugene PA-C [address] [place] [address] [email or web address] PCP - General Physician Ui Architect 06/01/24 Uziel Baez MD [address] [place] [address] [email or web address] Insurance Assigned Provider Internal Medicine 09/24/19 documented as of this encounter Additional Source Comments The information contained in this document represents components of the legal health record. It is not the complete legal health record.[facility]
--- OUTSIDE RECORDS SUMMARY | 2025-01-17 07:13 | XMS_ITS | Encounter Summary ---
Author Organization [facility] Address [address] [place] [phone] Phone Care Team Providers Care Corn Picker Name Role Phone Umesh Ortiz MD Unavailable Meredith Aranda REFINED SYRUP OPERATOR Unavailable [phone] Meredith Aranda REFINED SYRUP OPERATOR Primary Care Provider Uziel Baez MD Primary Care Provider Meredith Aranda REFINED SYRUP OPERATOR Primary Care Provider Uziel Baez MD Unavailable Umesh Ortiz MD Primary Care Provider [phone] Benita Gordon REFINED SYRUP OPERATOR Primary Care Provider [phone] Benjamin Eugene PA-C Primary Care Provider Encounter Details Date Type Department Care Team (Latest Contact Info) Description 12/30/2017 Transcribe Orders [facility] Laboratory [address] [place] [address] Shravan Owens MD [address] [place] [address] [email or web address] Nausea (Primary Dx) Social History Tobacco Use [...] Pulmonary, Allergy and Critical Care Medicine 10 [facility] [place] [address] [place] [address] Rashard Medellin MD 10 [facility] 2nd [place] [address] [email or web address] 09/26/2025 3:20 PM EST Appointment [facility] Internal Medicine [address] [place] [address] Benjamin Eugene PA-C [address] [place] [address] [email or web address] documented as of this encounter Results * TSH (12/30/2017 10:22 AM EDT) TSH 2.28 0.27 - 4.20 uIU/mL [facility] Blood 12/30/2017 10:2 2 AM EDT 12/30/2017 10:28 AM EDT Shravan Owens MD LAB BLOOD ORDERABLES [facility] [address] [place], [place] [id number] * Immunoglobulin A (12/30/2017 10:22 AM EDT) IgA 223 70 - 400 mg/dL [facility] Blood 12/30/2017 10:2 2 AM EDT 12/30/2017 10:28 AM EDT Shravan Owens MD LAB BLOOD ORDERABLES [address] [address] * C-Reactive Protein (12/30/2017 10:22 AM EDT) C REACTIVE PROTEIN 0.1 0 - 0.5 mg/L [facility] Blood 12/30/2017 10:2 2 AM EDT 12/30/2017 10:28 AM EDT Shravan Owens MD LAB BLOOD ORDERABLES Performing Organization Address [facility] Co de Phone Number [address] [address] * Comprehensive metabolic panel (12/30/2017 10:22 AM EDT) SODIUM 142 133 - 146 mmol/L [facility] POTASSIUM 4.1 3.3 - 5.1 mmol/L [facility] CHLORIDE 103 96 - 108 mmol/L [facility] CO2 28 21 - 35 mmol/L [facility] BUN 13 6 - 19 mg/dL [facility] CREATININE 0.70 0.5 - 1.5 mg/dL [facility] GLUCOSE 79 70 - 99 mg/dL [facility] ALBUMIN 4.2 3.9 - 4.8 g/dL [facility] TOTAL PROTEIN 7.6 6.5 - 8.0 g/dL [facility] CALCIUM 9.2 8.4 - 10.3 mg/dL [facility] ALKALINE PHOSPHATASE 75 39 - 117 U/L [facility] TOTAL BILIRUBIN 0.5 0.0 - 1.2 mg/dL [facility] AST 18 0 - 37 U/L [facility] ALT 16 0 - 40 U/L [facility] GLOBULIN 3.4 1 - 4.8 g/dL [facility] EGFR >120 >59 mL/min/1.7 3m2 [facility] Comment:If patient is black, multiply result by 1.159. The eGFR calculation has changed from the MDRD equation to the CKD-EPI equation as of November 15, 2017. ANION GAP 15 10 - 20 mmol/L [facility] Blood 12/30/2017 10:2 2 AM EDT 12/30/2017 10:28 AM EDT Shravan Owens MD LAB BLOOD ORDERABLES [address] [address] * CBC (12/30/2017 10:22 AM EDT) WBC 6.82 3.40 - 11.20 K/uL [facility] RBC 4.49 3.80 - 4.80 M/uL [facility] HGB 13.2 12.0 - 15.0 g/dL [facility] HCT 38.7 36.0 - 46.0 % [facility] PLT 268 130 - 400 K/uL [facility] MCV 86.2 79.0 - 98.0 fL [facility] MCH 29.4 27.0 - 34.8 pg [facility] MCHC 34.1 31.5 - 36.0 g/dL [facility] RDW 12.5 10.8 - 14.6 % [facility] MPV 11.5 9.4 - 12.4 fl [facility] NRBC 0.00 /100 WBCs [facility] ABSOLUTE NRBC 0.00 K/uL [facility] Blood 12/30/2017 10:2 2 AM EDT 12/30/2017 10:28 AM EDT Shravan Owens MD LAB BLOOD ORDERABLES [address] [address] * Tissue transglutaminase IgA (12/30/2017 10:22 AM EDT) TTG IGA ANTIBODY <1.2 <4.0 (Negative) U/mL [facility] DPT OF LAB MED AND PAT+ Blood 12/30/2017 10:2 2 AM EDT 12/30/2017 10:28 AM EDT Shravan Owens MD LAB BLOOD ORDERABLES [facility] DPT OF LAB MED AND PAT+ [address] [place] [address] documented in this encounter Visit Diagnoses Diagnosis [...] Time PHQ-2 Depression Total Score: 0 12/10/19 18 11:44 AM EDT documented as of this encounter Care Teams Corn Picker Relationship Specialty Start Date End Date Meredith Aranda NP [address] [place] [address] [email or web address] PCP - General Family Medicine 12/09/17 08/01/19 Uziel Baez MD [address] [place] [address] PCP - General Internal Medicine 08/02/19 09/23/19 Meredith Aranda REFINED SYRUP OPERATOR [address] [address] PCP - General Family Medicine 09/24/19 11/15/23 Umesh Ortiz MD [address] [place] [address] PCP - General Internal Medicine 11/16/23 05/06/24 Benita Gordon NP [address] [place] [address] PCP - General Nurse Practitioner 05/07/24 05/31/24 Benjamin Eugene PA-C [address] [place] [address] PCP - General Physician Industrial Equipment Mechanic 06/01/24 Umesh Ortiz MD [address] [place] [address] Historical LMR Provider 06/30/17 Meredith Aranda NP [address] [place] [address] Historical LMR Provider 06/30/17 09/23/19 Uziel Baez MD [address] [place] [address] Insurance Assigned Provider Internal Medicine 09/24/19 documented as of this encounter Additional Source Comments The information contained in this document represents components of the legal health record. It is not the complete legal health record.[facility]
--- OUTSIDE RECORDS SUMMARY | 2025-01-17 07:13 | XMS_ITS | Clinical Summary ---
Author Organization [facility] Address [address] [place] [address] Phone Care Team Providers Care Line Assembly Utility Worker Name Role Phone Brigette Vigil MD Primary Care Provider [phone] Immunizations Immunization Administration Dates Next Due DTaP [...] age to complete this topic Care Teams Line Assembly Utility Worker Relationship Specialty Start Date End Date Brigette Vigil MD [address] [place] [address] [address] [place] [address] PCP - General 11/01/16
--- OUTSIDE RECORDS SUMMARY | 2025-01-17 07:13 | XMS_ITS | Encounter Summary ---
Author Organization [facility] Address [address] [place] [address] Phone Care Team Providers Care Cylinder Valve Repairer Name Role Phone Brigette Vigil MD Primary Care Provider [phone] Encounter Details Date Type Department Care Team (Late st Contact Info) Description 01/13/2014 Orders Only [facility], [address] [place] [address] Social History Tobacco Use Types Packs/Day Years [...] on filedocumented in this encounter Care Teams Cylinder Valve Repairer Relationship Specialty Start Date End Date Brigette Vigil MD [address] [place] [address] [address] [place] [address] PCP - General 11/01/16 documented as of this encounter
--- OUTSIDE RECORDS SUMMARY | 2025-01-17 07:13 | XMS_ITS | Clinical Summary ---
Author Organization [facility] Address [address] [place] [address] Phone Care Team Providers Care Internal Revenue Service Agent Name Role Phone Uziel Baez MD Unavailable [phone] Benjamin Eugene PA-C Primary Care Provider [phone] Allergies No known active allergies Medications Medication [...] with meals. 60 tablet 2 10/12/2024 Active Active Problems Problem Noted Date Diagnosed Date Acute exacerbation of chronic low back pain 03/2025 Assessment & Plan (12/17/2024 5:21 PM EDT): Patient with continued low back pain which she did undergo a lumbar spine x-ray which showed arthritis at the L4-5 region and there was mild progression of the convex left curvature of the lumbar spine which the patient did not realize that she had. She does carry a history of hip dysplasia and had been treated at [facility] for a long time. Of note given her continued worsening low back pain with extension now into the right hip I will order an MRI of our region for further assessment. She was advised to take Advil with food. She was also advised to continue to engage in PT Right hip pain 11/30/2024 Assessment & Plan (12/17/2024 5:21 PM EDT): Patient has a known history of right hip pain which has been progressively getting worse. She did undergo right hip x-rays which were negative. On physical examination she is noted to have tenderness to palpation over the right SI joint as well as the right hip with positive pain with abduction. My concern is that the patient could have underlying bursitis which could be triggering. I will send the patient to [facility] to possibly undergo cortisone injections which could potentially help her symptoms. She was advised to take Advil up to 3 times a day with food. Continue PT. Assessment & Plan (11/30/2024 4:51 PM EDT): The clinical presentation suggests a diagnosis of tendinitis. Physical therapy is recommended as the primary course of treatment, [facility] physical therapy referral placed. An x-ray of the lumbar spine and right hip will be ordered to rule out any other potential conditions. She is advised to engage in home exercises, rest, and avoid heavy lifting. Annual physical exam 09/19/2024 Assessment & Plan [...] has been seen by her GI at [facility] and has undergone HIDA scan, CT and an EGD. However patient continues to have some right upper quadrant pain and had version to certain foods. I have asked for Dr. 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 She also has a barium swallow that is currently pending Assessment & Plan (06/18/2024 12:19 PM EDT): Patient with noted abdominal pain in the right upper quadrant and epigastric region. Her last scan at [facility] revealed gastric distention and has an upcoming EGD scheduled in October with her building equipment inspector. Given her symptoms I would also obtain [...] next week and follows with GI at [facility]. Assessment & Plan (07/09/2024 12:37 PM EDT): [...] Encounters Date Type Department Care Team Description 01/03/2025 Telephone [facility] 40 [facility] [place] [address] Benjamin Eugene PA-C Referral to Orthopedist 12/27/2024 Telephone [facility] 40 [place] [address] Mary Ann Balderas RN MRI denial 12/20/2024 Telephone [facility] Pulmonary, Allergy and Critical Care Medicine 10 [place] [address] Benjamin Eugene PA-C Establish Care 12/17/2024 4:00 PM EDT Office Visit [facility] [address] [facility] [place] [address] Benjamin Eugene PA-C Acute exacerbation of chronic low back pain (Primary Dx); Right hip pain 12/14/2024 Telephone [facility] [address] [facility] [place] [address] Benjamin Eugene PA-C Reschedule new patient appt 12/13/2024 Telephone [facility] [address] [facility] [place] [address] Benjamin Eugene PA-C Question 12/06/2024 Orders Only [facility] [address] [facility] [address] Provider, MD Jil 11/30/2024 4:00 PM EDT Office Visit [facility] [address] [facility] [address] Lakeisha Lucero PA-C Right hip pain (Primary Dx) 11/27/2024 Telephone [facility] [address] [facility] [address] Benjamin Eugene PA-C Right hip pain from Last 3 Months Immunizations Name Administration Dates Next Due COVID-19 (Pre-07/04) Pfizer Vaccine, mRNA, PF 12/12/2020,11/21/2020 COVID-19, Unspecified Formulation 08/16/2024 DTaP 2002, 0,04/30/1999,03/02,1998 Dtap, 5 Pertussis Antigens 2002,,04/30/1999,03/02,1998 [id number] FORMULATION 07/09/2009 [id number] 07/09/2009 HPV,quadrivalent 02/16/2013,05/09/2012, 2 Hepatitis B 07/29/1999,1998,1998 [...] high school, GED, job training, learning the British language, technical skills, or developing parenting skills)? [...] Reading Time Taken Comments Blood Pressure 114/76 12/17/2024 4:07 PM EDT Pulse 90 12/17/2024 4:07 PM EDT Temperature 36.8 ??C (98.3 ??F) 05/07/2024 4:01 AM ED T Respiratory Rate 16 12/17/2024 4:07 PM EDT Oxygen Saturation 99% 12/17/2024 4:07 PM EDT Inhaled Oxygen Concentration - - Weight 67 kg (147 lb 9.6 oz) 12/17/2024 4:07 PM EDT Height 157.5 cm (5' 2.01 ) 12/17/2024 4:07 PM ED T Body Mass Index 26.99 12/17/2024 4:07 PM EDT Plan of Treatment Upcoming Encounters Date Type Department Care Team (Late st Contact Info) Description 04/24/2025 3:00 PM EDT Office Visit [facility] Pulmonary, Allergy and Critical Care Medicine [address] [place] [address] [place] [address] Rashard Medellin MD 10 [facility] 2nd [place] [address] [email or web address] 09/26/2025 3:20 PM EST Appointment [facility] 40 [place], [place] [phone] Benjamin Eugene PA-C [address] [place], [place] [phone] [email or web address] Health Maintenance Due Date Last Done Comments COVID-19 VACCINE (2023- season) 2024 08/16/2024, 08/16/2024, 07/29/2022, Additional history exists DEPRESSION SCREENING 11/29/2025 11/29/2024, 11/30/19 25 PAP SMEAR 08/13/2027 08/13/2024 Adult Td,Tdap Booster 03/26/2031 03/26/2021, 011 HIB VACCINES Completed 02/16/2000, 04/12, 03/02/1999, Additional history exists HPV VACCINES Completed 02/16/2013, 04/13, 02/16/2012 MENINGOCOCCAL VACCINES (ACWY) Completed 07/20/2016, 07/20/2016, 12/23/2010, Additional history exists HEPATITIS C SCREENING Completed 03/26/2021 HIV ONE-TIME SCREENING (18-65 YEARS) Completed 03/26/2021 SMOKING STATUS SCREENING (Once After 26 Yrs) Completed 12/17/2024 HEPATITIS A VACCINES Aged Out No long er eligible based on patient's age to complete this topic PNEUMOCOCCAL VACCINES (0-49 years) Aged Out No longer eligible based on patient's age to complete this topic Medical Devices Not on file Procedures Procedure Name Priority Date/Time Associated Diagnosis Comments OUTSIDE IMAGING Routine 12/06/2024 8:32 AM EDT OUTSIDE IMAGING Routine 12/06/2024 8:29 AM EDT PAP TEST Routine 08/13/2024 12:00 AM EST HEPATITIS C ANTIBODY, QUALITATIVE Routine 03/26/2021 9:26 AM EDT Routine general medical examination at a health care facility from Last 3 Months or Most Recently Relevant to Health Maintenance Results * Outside Imaging Report Only (12/06/2024 8:32 AM EDT) Historical Provider IMJane XR CHEST * Outside Imaging Report Only (12/06/2024 8:29 AM EDT) Historical Provider IMG XR CHEST * Pap Test (08/13/2024 12:00 AM EST) 08/13/2024 08/14/2024 9:1 9 AM EST Narrative SEE NARRATIVE - 08/15/2024 3:46 [place] [address] Steel Floor Pan Placing Supervisor: Dieudonne Laurent MD ?? LIBRARY CIRCULATION ASSISTANT Cytology Report FINAL DIAGNOSIS A. ??PAP SMEAR (THIN PREP) CE: SPECIMEN ADEQUACY: Satisfactory for evaluation; transformation zone present. INTERPRETATION: NEGATIVE FOR INTRAEPITHELIAL LESION OR MALIGNANCY. This specimen was analyzed by the automated ThinPrep Imaging System ([employer] and manually rescreened by a clinical specialist medical device and/or pathologist. Electronically Signed Out By: ??MD [...] : ??2000 (Age: 23) Sex: ??F Institution: ??[facility] Date of Collection: ??08/13/2024 Date of Reported: ??08/15/2024 15:46 Results to: Maricarmen Horvath Maricarmen Murillo MD CYTOLO GY ORDERABLES Performing Organization Address City/[facility] Co de Phone Number SEE NARRATIVE * Hepatitis C antibody, qualitative (03/26/2021 9:26 AM EDT) HCV NON-REACTIV E NON-REACTI VE [facility] Blood 03/26/2021 9:26 AM EDT 03/26/2021 9:31 AM EDT Meredith Aranda NP LAB BLOOD ORDERABLES Performing Organization Address City/[facility] Co de Phone Number [facility] [address] [place] [address] from Last 3 Months or Most Recently Relevant to Health Maintenance Care Teams Internal Revenue Service Agent Relationship Specialty Start Date End Date Benjamin Eugene PA-C [address] [place], [place] [email or web address] PCP - General Physician Manager Consumer 06/01/24 Uziel Baez MD [address] [place], [place] [email or web address] Insurance Assigned Provider Internal Medicine 09/24/19 Additional Source Comments The information contained in this document represents components of the legal health record. It is not the complete legal health record.[facility]
--- OUTSIDE RECORDS SUMMARY | 2025-01-17 07:13 | XMS_ITS | Encounter Summary ---
Author Organization [facility] Address [address] [place] [address] Phone Care Team Providers Care Diesel Engine Specialist Name Role Phone Meredith Aranda WARDROBE ASSISTANT Primary Care Provider [phone] Uziel Baez MD Unavailable [phone] Umesh Ortiz MD Primary Care Provider [phone] Benita Gordon NP Primary Care Provider [phone] Benjamin EugeneC Primary Care Provider [phone] Encounter Details Date Type Department Care Team (Late st Contact Info) Description 03/12/2021 Procedure Pass [address] [place] [address] Social History Tobacco Use Types Packs/Day Years [...] [facility] Pul[facility], Allergy and Critical Care Medicine [address] [place] [address] Rashard Medellin MD [address] [place] [address] 09/26/2025 3:20 PM EST Appointment [facility] Internal Medicine [address] [place], [place] [phone] Benjamin Eugene PA-C [address] [place], [place] [email or web address] documented as of this encounter Visit Diagnoses [...] documented as of this encounter Care Teams Diesel Engine Specialist Relationship Specialty Start Date End Date Meredith Aranda NP PCP - General Family Medicine 09/24/19 11/15/23 Umesh Ortiz MD [address] [place] [address] 2[address] [place] [address] PCP - General Internal Medicine 11/16/23 05/06/24 Benita Gordon NP [address] [place] [address] PCP - General Nurse Practitioner 05/07/24 05/31/24 Benjamin Eugene PA-C [address] [place] [address] [email or web address] PCP - General Physician Cattle Examiner 06/01/24 Uziel Baez MD [address] [place] [address] [email or web address] Insurance Assigned Provider Internal Medicine 09/24/19 documented as of this encounter Additional Source Comments The information contained in this document represents components of the legal health record. It is not the complete legal health record.[facility]
--- OUTSIDE RECORDS SUMMARY | 2025-01-17 07:13 | XMS_ITS | Encounter Summary ---
Author Organization [facility] Address [address] [place] [address] Phone Care Team Providers Care Mineral Mixer Name Role Phone Umesh Ortiz MD Unavailable Meredith Aranda RECYCLING ATTENDANT Unavailable [phone] Meredith Aranda RECYCLING ATTENDANT Primary Care Provider Uziel Baez MD Primary Care Provider Meredith Aranda RECYCLING ATTENDANT Primary Care Provider Uziel Baez MD Unavailable [phone] Umesh Ortiz MD Primary Care Provider Benita Gordon RECYCLING ATTENDANT Primary Care Provider [phone] Benjamin Eugene PA-C Primary Care Provider [phone] Encounter Details Date Type Department Care Team (Latest Contact Info) Description 07/06/2019 Transcribe Orders Virtual Department 30 [place] [address] Rashard Hines MD [address] [place] [address] [email or web address] RUQ pain (Primary Dx) Social History Tobacco [...] [facility], Allergy [facility] Critical [facility] [address] [place] [address] Rashard Medellin MD [address] [place] [address] 09/26/2025 3:20 PM EST Appointment [facility] Internal Medicine 40 [place] [address] Benjamin Eugene PA-C 40 [place] [address] [email or web address] documented as of this encounter Results * US PELVIS TRANSABDOMINAL ONLY WITH DOPPLER (07/12/2019 6:03 PM EDT) Anatomical Region Laterality Modality Pelvis, Uterus/Adnexa Ultrasound 07/12/2019 7:30 PM EDT Impressions 07/12/2019 7:38 PM EDT Physiologic appearance of the uterus and ovaries. POS - [id number] Narrative 07/12/2019 7:38 PM EDT EXAM: ?? US PELVIS TRANSABDOMINAL ONLY WITH LIMITED DOPPLER COMPARISON: None HISTORY: Right side pain. FINDINGS: UTERUS: The uterus is ..., measures 6.2 cm x 3.0 cm x 4.3 cm, volume of 41 cm3, and demonstrates homogeneous ??myometrial echotexture. The endometrial echocomplex measures 0.5 cm in thickness. RIGHT OVARY: 3.3 cm x 1.6 cm x 3.0 cm, volume of 8.5 cm3. Normal follicular appearance. Arterial and venous flow is demonstrated with color and spectral Doppler.. LEFT OVARY: 2.7 cm x 1.2 cm x 2.3 cm, volume of 3.8 cm3. Normal follicular appearance. Venous flow is demonstrated with spectral Doppler.. PELVIS: Small amount of fluid in the cul-de-sac. Procedure Note Stanton Martinez MD - 07/12/2019 EXAM: US PELVIS TRANSABDOMINAL ONLY WITH LIMITED DOPPLER COMPARISON: None HISTORY: Right side pain. FINDINGS: UTERUS: The uterus is ..., measures 6.2 cm x 3.0 cm x 4.3 cm, volume of 41cm3, and demonstrates homogeneous myometrial echotexture. The endometrialechocomplex measures 0.5 cm in thickness. RIGHT OVARY: 3.3 cm x 1.6 cm x 3.0 cm, volume of 8.5 cm3. Normalfollicular appearance. Arterial and venous flow is demonstrated with colorand spectral Doppler.. LEFT OVARY: 2.7 cm x 1.2 cm x 2.3 cm, volume of 3.8 cm3. Normal follicularappearance. Venous flow is demonstrated with spectral Doppler.. PELVIS: Small amount of fluid in the cul-de-sac. IMPRESSION: Physiologic appearance of the uterus and ovaries. POS - [id number] Rashard Hines MD IMG US PELVIS documented in this encounter Visit Diagnoses Diagnosis [...] documented as of this encounter Care Teams Mineral Mixer Relationship Specialty Start Date End Date Meredith Aranda, RECYCLING ATTENDANT [address] [place] [address] PCP - General Family Medicine 12/09/17 08/01/19 Uziel Baez MD [address] [place] [address] PCP - General Internal Medicine 08/02/19 09/23/19 Meredith Aranda NP [address] [place] [address] PCP - General Family Medicine 09/24/19 11/15/23 Umesh Ortiz MD [address] [place] [address], 2nd [place] [address] PCP - General Internal Medicine 11/16/23 05/06/24 Benita Gordon NP [facility] [place] [address] PCP - General Nurse Practitioner 05/07/24 05/31/24 Benjamin Eugene PA-C [address] [place] [email or web address] PCP - General Physician Power Operator 06/01/24 Umesh Ortiz MD [address] [place] [address], 2nd [place] [address] Historical LMR Provider 06/30/17 Meredith Aranda NP 26 [facility] 6 [place] [address] Historical LMR Provider 06/30/17 09/23/19 Uziel Baez MD 40 [place] [address] Insurance Assigned Provider Internal Medicine 09/24/19 documented as of this encounter Additional Source Comments The information contained in this document represents components of the legal health record. It is not the complete legal health record.[facility]
--- OUTSIDE RECORDS SUMMARY | 2025-01-17 07:13 | XMS_ITS | Encounter Summary ---
Author Organization [facility] Address [address] [place] [address] Phone Care Team Providers Care Subeditor Name Role Phone Umesh Ortiz MD Unavailable Meredith Aranda TERRAZZO FINISHER Unavailable [phone] Uziel Baez MD Primary Care Provider [phone] Meredith Aranda TERRAZZO FINISHER Primary Care Provider Uziel Baez MD Unavailable Umesh Ortiz MD Primary Care Provider Benita Gordon TERRAZZO FINISHER Primary Care Provider [phone] Benjamin Eugene PA-C Primary Care Provider [phone] Encounter Details Date Type Department Care Team (Late st Contact Info) Description 08/03/2019 Procedure Pass [facility], [address] [place] [address] Social History Tobacco Use Types Packs/Day Years [...] Critical Care Medicine [address] [place], [place] [id number] Rashard Medellin MD 10 [facility] 2nd [place] [address] [email or web address] 09/26/2025 3:20 PM EST Appointment [facility] Internal Medicine 40 [place], [place] [phone] Benjamin Eugene PA-C 40 [place], [place] [phone] [email or web address] documented as of this encounter Visit Diagnoses [...] documented as of this encounter Care Teams Subeditor Relationship Specialty Start Date End Date Uziel Baez MD 40 [place], [place] [phone] PCP - General Internal Medicine 08/02/19 09/23/19 Merediht Aranda, TERRAZZO FINISHER [address] [place] [address] PCP - General Family Medicine 09/24/19 11/15/23 Umesh Ortiz MD [address] [place] [address], [address] [place] [address] PCP - General Internal Medicine 11/16/23 05/06/24 Benita Gordon NP [address] [place] [address] PCP - General Nurse Practitioner 05/07/24 05/31/24 Benjamin Eugene PA-C [address] [place] [address] [email or web address] PCP - General Physician Candy Supervisor 06/01/24 Umesh Ortiz MD [address] [place] [address] Historical LMR Provider 06/30/17 Meredith Aranda, TERRAZZO FINISHER [address] [place] [address] Historical LMR Provider 06/30/17 09/23/19 Uziel Baez MD [address] [place] [address] [email or web address] Insurance Assigned Provider Internal Medicine 09/24/19 documented as of this encounter Additional Source Comments The information contained in this document represents components of the legal health record. It is not the complete legal health record.[facility]
--- OUTSIDE RECORDS SUMMARY | 2025-01-17 07:13 | XMS_ITS | Encounter Summary ---
Author Organization [facility] Address [address] [place] [address] Phone Care Team Providers Care Sales Director Name Role Phone Brigette Vigil MD Primary Care Provider [phone] Encounter Details Date Type Department Care Team (Late st Contact Info) Description 01/13/2014 Orders Only [facility], [address] [place] [address] Social History Tobacco Use Types Packs/Day Years [...] on filedocumented in this encounter Care Teams Sales Director Relationship Specialty Start Date End Date Brigette Vigil MD [address] [place] [address] [address] [place] [address] PCP - General 11/01/16 documented as of this encounter
--- OUTSIDE RECORDS SUMMARY | 2025-01-17 07:13 | XMS_ITS | Encounter Summary ---
Author Organization [facility] Address [address] [place] [address] Phone Care Team Providers Care Sample Room Supervisor Name Role Phone Umesh Ortiz MD Unavailable Meredith Aranda AMPHIBIAN CREWMEMBER Unavailable [phone] Meredith Aranda AMPHIBIAN CREWMEMBER Primary Care Provider Uziel Baez MD Primary Care Provider [phone] Meredith Aranda AMPHIBIAN CREWMEMBER Primary Care Provider Uziel Baez MD Unavailable [phone] Umesh Ortiz MD Primary Care Provider Benita Gordon AMPHIBIAN CREWMEMBER Primary Care Provider [phone] Benjamin Eugene PA-C Primary Care Provider Encounter Details Date Type Department Care Team (Late st Contact Info) Description 06/19/2018 Procedure Pass [facility], Ct Scan - [address] [address] Social History Tobacco Use Types Packs/Day Years [...] Critical Care Medicine [address] [place] [address] Rashard Medellin MD 10 [facility] 2nd [place] [address] [email or web address] 09/26/2025 3:20 PM EST Appointment [facility] Internal Medicine 40 [place], [place] [phone] Benjamin Eugene PA-C 40 [place] [address] [email or web address] documented as of this encounter Visit Diagnoses [...] documented as of this encounter Care Teams Sample Room Supervisor Relationship Specialty Start Date End Date Meredith Aranda, AMPHIBIAN CREWMEMBER [address] [place] [address] PCP - General Family Medicine 12/09/17 08/01/19 Uziel Baez MD [address] [place] [address] PCP - General Internal Medicine 08/02/19 09/23/19 Meredith Aranda, AMPHIBIAN CREWMEMBER [address] [place] [address] PCP - General Family Medicine 09/24/19 11/15/23 Umesh Ortiz MD [address] [place] [address] PCP - General Internal Medicine 11/16/23 05/06/24 Benita Gordon NP [address] [place] [address] PCP - General Nurse Practitioner 05/07/24 05/31/24 Benjamni Eugene PA-C [address] [place] [email or web address] PCP - General Physician Machine Edge Bander 06/01/24 Umesh Ortiz MD [address] [place] [address] Historical LMR Provider 06/30/17 Meredith Aranda, AMPHIBIAN CREWMEMBER [address] [place] [address] 6 [place] [address] [email or web address] Historical LMR Provider 06/30/17 09/23/19 Uziel Baez MD 40 [place] [address] [email or web address] Insurance Assigned Provider Internal Medicine 09/24/19 documented as of this encounter Additional Source Comments The information contained in this document represents components of the legal health record. It is not the complete legal health record.[facility]
--- OUTSIDE RECORDS SUMMARY | 2025-01-17 07:13 | XMS_ITS | Encounter Summary ---
Author Organization [facility] Address [address] [place] [address] Phone Care Team Providers Care Enamel Applier Name Role Phone Umesh Ortiz MD Unavailable [phone] Meredith Aranda RN CLINICAL Unavailable [phone] Uziel Baez MD Primary Care Provider Meredith Aranda RN CLINICAL Primary Care Provider Uziel Baez MD Unavailable Umesh Ortiz MD Primary Care Provider Benita Gordon RN CLINICAL Primary Care Provider [phone] Benjamin Eugene PA-C Primary Care Provider Encounter Details Date Type Department Care Team (Latest Contact Info) Description 09/07/2019 Transcribe Orders Virtual Department 30 [place] [address] Fredy Hines MD [address] [place] [address] [email or web address] RUQ pain (Primary Dx); Nausea Social History [...] [facility] Pulmonary, Allergy and Critical Care Medicine [address] [place] [address] [place] [address] Fredy Medellin MD [address] [place] [address] 2nd [place] [address] [email or web address] 09/26/2025 3:20 PM EST Appointment [facility] Internal Medicine [address] [place], [place] [phone] Benjamin Eugene PA-C 40 [place], [place] [phone] [email or web address] documented as of this [...] IMAGES/FRAMES POS - [id number] Fredy Hines MD [facility] [place] MISC documented in this encounter Visit [...] documented as of this encounter Care Teams Enamel Applier Relationship Specialty Start Date End Date Uziel Baez MD 40 [place] [address] [email or web address] PCP - General Internal Medicine 08/02/19 09/23/19 Meredith Aranda NP [address] [place] [address] [email or web address] PCP - General Family Medicine 09/24/19 11/15/23 Umesh Ortiz MD [address] [place] [address] [email or web address] PCP - General Internal Medicine 11/16/23 05/06/24 Benita Gordon NP [facility] [place] [address] PCP - General Nurse Practitioner 05/07/24 05/31/24 Benjamin Eugene PA-C 40 [place] [address] [email or web address] PCP - General Physician Bottom Turning Lathe Tender 06/01/24 Umesh Ortiz MD [address] [place], [place] [address], [place] [address] Historical LMR Provider 06/30/17 Meredith Aranda NP [address] [place] [address] 6 [place] [address] Historical LMR Provider 06/30/17 09/23/19 Uziel Baez MD [address] [place] [address] [email or web address] Insurance Assigned Provider Internal Medicine 09/24/19 documented as of this encounter Additional Source Comments The information contained in this document represents components of the legal health record. It is not the complete legal health record.[facility]
--- OUTSIDE RECORDS SUMMARY | 2025-01-17 07:13 | XMS_ITS | Encounter Summary ---
Author Organization [facility] Address [address] [place] [address] [place] [address] Phone Care Team Providers Care Enterprise Data Architect Name Role Phone Uziel Baez MD Unavailable [phone] Benita Gordon NP Primary Care Provider [phone] Benjamin Eugene PA-C Primary Care Provider [phone] Encounter Details Date Type Department Care Team (Late st Contact Info) Description 05/07/2024 Procedure Pass [facility], Ct Scan - [address] [address] Social History Tobacco Use Types Packs/Day Years [...] Pulmonary, Allergy and Critical Care Medicine 10 [place] [address] Rashard Medellin MD [address] [place] [address] 09/26/2025 3:20 PM EST [facility]ointment [facility] [place] Internal Medicine 40 [place] [address] Benjamin Eugene PA-C 40 [place] [address] documented as of this encounter Visit Diagnoses Not on filedocumented in this encounter Additional Health Concerns Assessment Noted Time PHQ-2 Depression Total Score: 0 07/02/20 22 1:23 PM EDT documented as of this encounter Care Teams Enterprise Data Architect Relationship Specialty Start Date End Date Benita Gordon NP [address] [place] [address] PCP - General Nurse Practitioner 05/07/24 05/31/24 Benjamin Eugene PA-C 40 [place] [address] [email or web address] PCP - General Physician Welfare Specialist 06/01/24 Uziel Baez MD 40 [place] [address] [email or web address] Insurance Assigned Provider Internal Medicine 09/24/19 documented as of this encounter Additional Source Comments The information contained in this document represents components of the legal health record. It is not the complete legal health record.[facility]
--- OUTSIDE RECORDS SUMMARY | 2025-01-17 07:13 | XMS_ITS | Encounter Summary ---
Author Organization [facility] Address [address] [place] [address] Phone Care Team Providers Care Cook Helper Pastry Name Role Phone Brigette Vigil MD Primary Care Provider [phone] Encounter Details Date Type Department Care Team (Late st Contact Info) Description 01/13/2014 Orders Only [facility], [address] [place] [address] Social History Tobacco Use Types Packs/Day Years [...] on filedocumented in this encounter Care Teams Cook Helper Pastry Relationship Specialty Start Date End Date Brigette Vigil MD [address] [place] [address] [address] [place] [address] PCP - General 11/01/16 documented as of this encounter
--- OUTSIDE RECORDS SUMMARY | 2025-01-17 07:13 | XMS_ITS | Encounter Summary ---
Author Organization [facility] Address [address] [place] [address] Phone Care Team Providers Care Soaking Room Operator Name Role Phone Meredith Aranda NP Primary Care Provider [phone] Uziel Baez MD Unavailable [phone] Umesh Ortiz MD Primary Care Provider [phone] Benita Gordon NP Primary Care Provider [phone] Benjamin EugeneC Primary Care Provider [phone] Encounter Details Date Type Department Care Team (Late st Contact Info) Description 04/01/2021 Ancillary Orders [facility],Outside Imaging 30 [place] [address] System, Provider Not In, [facility] [address] [address] Social History Tobacco Use Types Packs/Day Years [...] high school, GED, job training, learning the Slovenian language, technical skills, or developing parenting skills)? [...] [facility] Pulmonary, Allergy and Critical Care Medicine [address] [place] [address] Rashard Medellin MD 10 [facility] 2nd [place] [address] 09/26/2025 3:20 PM EST Appointment [facility] [place] Internal Medicine 40 [place] [address] Benjamin Eugene PA-C 40 [place] [address] documented as of this encounter Results * MRI Lower Extremity Outside (No Interpretation) (02/29/2020 12:00 AM EDT) Narrative SYSTEMGENERATED, DOCUMENTATION - 04/01/2021 10:23 AM EDT This study is for PACS storage only and not for interpretation. Provider Not In System PhD IMG OUTSIDE I LUIS W/OUT INTERPRETATION documented in this encounter Visit [...] documented as of this encounter Care Teams Soaking Room Operator Relationship Specialty Start Date End Date Meredith Aranda NP PCP - General Family Medicine 09/24/19 11/15/23 Umesh Ortiz MD [address] [place] [address], 2nd [place] [address] PCP - General Internal Medicine 11/16/23 05/06/24 Benita Gordon NP [address] [place] [address] PCP - General Nurse Practitioner 05/07/24 05/31/24 Benjamin Eugene PA-C 40 [place] [address] [email or web address] PCP - General Physician All Round Butcher 06/01/24 Uziel Baez MD [address] [place] [address] [email or web address] Insurance Assigned Provider Internal Medicine 09/24/19 documented as of this encounter Additional Source Comments The information contained in this document represents components of the legal health record. It is not the complete legal health record.[facility]
[2025-01-17 07:34] LABS: MANUAL DIFF FLAG NO
[2025-01-17 07:58] LABS: Basophils Absolute Auto 0.1 X10*3/uL (0.0-0.2); Basophils Percent Auto 1.7 % (0-2); Eosinophils Absolute Auto 0.1 X10*3/uL (0.0-0.4); Hematocrit 41.7 % (37.0-47.0); Hemoglobin 13.7 g/dl (12.0-16.0); Imm Gran Abs Auto 0.01 X10*3/uL (0.00-0.03); Imm Gran Pct Auto 0.3 % (0.0-0.4); Lymphocytes Absolute Auto 1.1 X10*3/uL (1.2-4.9); Lymphocytes Percent Auto 30.9 % (20-40); Mean Corpuscular HGB Conc 32.9 g/dl (31.0-35.0); Mean Corpuscular Volume 91.4 fL (80.0-98.0); Mean Platelet Volume 10.6 fL (9.4-12.3); Monocytes Absolute Auto 0.3 X10*3/uL (0.1-1.2); Monocytes Percent Auto 9.6 % (2-11); Neutrophils Percent Auto 55.5 % (45-73); Platelet Count 248 X10*3/uL (160-400); Red Blood Count 4.56 X10*6/uL (4.20-5.50); Red Cell Distribution Width 12.4 % (11.0-16.0); White Blood Count 3.5 X10*3/uL (4.8-10.8)
[2025-01-17 08:28] LABS: Alanine Aminotransferase 19 U/L (0-31); Albumin Level 4.5 g/dL (3.5-5.0); Alkaline Phosphatase 62 U/L (39-117); Anion Gap 12 (12-20); Aspartate Amino Transferase 20 U/L (5-31); Bilirubin Total 1.3 mg/dL (0.0-1.0); Blood Urea Nitrogen 14 mg/dL (9-16); C Reactive Protein < 0.10 mg/dL (< or = 0.50); Calcium 9.6 mg/dL (8.4-10.2); Carbon Dioxide 25 mmol/L (22-29); Chloride 106 mmol/L (96-108); Estimated Glomerular Filt Rate > 60; Glucose Random 87 mg/dL (60-115); Potassium 3.9 mmol/L (3.3-5.1); Sodium 139 mmol/L (135-145); Total Protein 7.8 g/dL (6.5-8.0)
[2025-01-17 08:36] LABS: Erythrocyte Sedimentation Rate 8 MM/HR (0-20)
[2025-01-17 08:41] LABS: Ferritin 15 ng/mL (10-122)
[2025-01-18 20:58] LABS: IgA 244 mg/dL (47-310); IgG 1459 mg/dL (600-1640); IgM 153 mg/dL (50-300); Transglutaminase IgA <1.0 U/mL
[2025-01-18 21:42] LABS: Class Almond 0; Class Brazil Nut 0; Class Cashew 0; Class Codfish 0; Class Cow's Milk 0; Class Egg white 0; Class Hazelnut 0; Class Macadamia Nut 0; Class Peanut 0; Class Salmon 0; Class Scallop 0; Class Sesame Seed 0; Class Shrimp 0; Class Soybean 0; Class Tuna 0; Class Walnut 0; Class Wheat 0; F001-IgE Egg White <0.10 kU/L; F002-IgE Milk <0.10 kU/L; F003-IgE Codfish <0.10 kU/L; F004-IgE Wheat <0.10 kU/L; F010-IgE Sesame Seed <0.10 kU/L; F013-IgE Peanut <0.10 kU/L; F014-IgE Soybean <0.10 kU/L; F017-IgE Hazelnut (Filbert) <0.10 kU/L; F018-IgE Brazil Nut <0.10 kU/L; F020-IgE Almond <0.10 kU/L; F024-IgE Shrimp <0.10 kU/L; F040-IgE Tuna <0.10 kU/L; F041 IgE Salmon <0.10 kU/L; F202-IgE Cashew Nut <0.10 kU/L; F256-IgE Walnut <0.10 kU/L; F338-IgE Scallop <0.10 kU/L; F345-IgE Macadmia Nut <0.10 kU/L; Immunoglobulin E 33 kU/L (<OR=114)
[2025-01-24 15:47] LABS: Histamine Plasma 1.7 ng/mL (< OR = 1.8)
== END 2025-01-17 07:10 | disposition home or self-care (01) ==
LOC: HO.LAB 07:09
PROVIDERS: PCP Physician Assistant Surgical; Visit Provider Internal Medicine Gastroenterology
DX: K21.9 Gastro-esophageal reflux disease without esophagitis (principal); D47.09 Other mast cell neoplasms of uncertain behavior; K75.81 Nonalcoholic steatohepatitis (NASH); R19.7 Diarrhea, unspecified; Z91.018 Allergy to other foods
CPT/HCPCS: 36415; 80053; 82550; 82728; 82784; 82785; 83088; 83520; 85025; 85652; 86003; 86140; 86364

== ENCOUNTER 2025-01-29 08:14 | Outpatient (REF) | payer OTHER, SELFPAY ==
--- OUTSIDE RECORDS SUMMARY | 2025-01-29 08:21 | XMS_ITS | Clinical Summary ---
Author Organization [facility] Address [address] [place] [address] Care Team Providers Care Legal Project Manager Name Role Phone Meredith Aranda NP Primary [...] patient's age to complete this topic [place] [address] [id number] [place] [id number] Care Teams Legal Project Manager Relationship Specialty Start Date End Date Meredith Aranda NP PCP - General Family Medicine 01/19/23
--- OUTSIDE RECORDS SUMMARY | 2025-01-29 08:21 | XMS_ITS | Encounter Summary ---
Author Organization [facility] Address [address] [place] [address] Phone Care Team Providers Care Navy Fighter Pilot Name Role Phone Brigette Vigil MD Primary Care Provider [phone] Encounter Details Date Type Department Care Team (Late st Contact Info) Description 12/17/2013 Orders Only [facility], [address] [place] [address] Social History Tobacco Use Types Packs/Day Years [...] on filedocumented in this encounter Care Teams Navy Fighter Pilot Relationship Specialty Start Date End Date Brigette Vigil MD [address] [place] [address] [address] [place] [address] PCP - General 11/01/16 documented as of this encounter
--- OUTSIDE RECORDS SUMMARY | 2025-01-29 08:22 | XMS_ITS | Encounter Summary ---
Author Organization [facility] Address [address] [place] [address] Phone Care Team Providers Care Animal Groomer Name Role Phone Brigette Vigil MD Primary Care Provider [phone] Encounter Details Date Type Department Care Team (Late st Contact Info) Description 01/13/2014 Orders Only [facility], [address] [place] [address] Social History Tobacco Use Types Packs/Day Years [...] on filedocumented in this encounter Care Teams Animal Groomer Relationship Specialty Start Date End Date Brigette Vigil MD [address] [place] [address] [address] [place] [address] PCP - General 11/01/16 documented as of this encounter
--- OUTSIDE RECORDS SUMMARY | 2025-01-29 08:22 | XMS_ITS | Referral Summary ---
Author Organization [facility] Address [address] [place] [address] Care Team Providers Care Earth Moving Technician Name Role Phone Meredith Aranda NP Primary [...] Plan of Treatment Not on file [place] [address] [employer] [id number] Care Teams Earth Moving Technician Relationship Specialty Start Date End Date Meredith Aranda NP PCP - General Family Medicine 01/19/23
--- OUTSIDE RECORDS SUMMARY | 2025-01-29 08:22 | XMS_ITS | Encounter Summary ---
Author Organization [facility] Address [address] [facility] [address] [place] [address] Phone Care Team Providers Care Frame Expander Name Role Phone Uziel Baez MD Unavailable [phone] Benjamin Eugene PA-C Primary Care Provider [phone] Encounter Details Date Type Department Care Team (Late st Contact Info) Description 01/21/2025 Orders Only [facility] Internal Medicine [address] [place] [address] Provider, MD Jil Count includes the [facility] [place] [phone] Social History Tobacco Use Types Packs/Day Years [...] high school, GED, job training, learning the Maltese language, technical skills, or developing parenting skills)? [...] or tries to control you? No 09/19/2024 Comments No Sex and Gender Information Value Date Recorded Sex Assigned at Female 03/11/2019 12:13 PM EDT Legal Sex Female 8:48 PM EDT Gender Identity Female 03/11/2019 12:13 PM EDT Sexual Orientation Straight 03/11/2019 12 :13 PM EDT documented as of this encounter Plan of Treatment Upcoming Encounters Date Type Department Care Team ([facility] st Contact Info) Description 04/24/2025 3:00 PM EDT Office Visit [facility] Pulmonary, Allergy and Critical Care Medicine [address] [place] [address] [place] [address] Rashard Medellin MD 10 [facility] 2nd [place] [address] 09/26/2025 3:20 PM EST Appointment [facility] Internal Medicine [address] [place], [place] [phone] Benjamin Eugene PA-C [address] [place] [address] documented as of this encounter Procedures Procedure Name Priority Date/Time Associated Diagnosis Comments OUTSIDE LAB Routine 01/17/2025 5:17 PM EDT documented in this encounter Results * Outside Lab (01/17/2025 5:17 PM EDT) us Historical Provider LAB BLOOD ORDERABLES Khloe l Result documented in this encounter Visit Diagnoses Not on filedocumented in this encounter Additional Health Concerns Assessment Noted Time PHQ-9 Depression Total Score: 8 11/30/19 25 8:53 PM EDT PHQ-2 Depression Total Score: 1 11/30/19 25 8:53 PM EDT documented as of this encounter Care Teams Frame Expander Relationship Specialty Start Date End Date Benjamin Eugene PA-C [address] [place] [address] PCP - General Physician Ward Assistant 06/01/24 Uziel Baez MD [address] [place] [address] [phone] Insurance Assigned Provider Internal Medicine 09/24/19 documented as of this encounter Additional Source Comments The information contained in this document represents components of the legal health record. It is not the complete legal health record.[facility]
--- OUTSIDE RECORDS SUMMARY | 2025-01-29 08:22 | XMS_ITS | Encounter Summary ---
Author Organization [facility] Address [address] [place] [address] Phone Care Team Providers Care Silk Spotter Name Role Phone Umesh Ortiz MD Unavailable Meredith Aranda FUEL CELL SYSTEMS ENGINEER Unavailable [phone] Meredith Aranda FUEL CELL SYSTEMS ENGINEER Primary Care Provider Uziel Baez MD Primary Care Provider [phone] Meredith Aranda FUEL CELL SYSTEMS ENGINEER Primary Care Provider Uziel Baez MD Unavailable Umesh Ortiz MD Primary Care Provider Benita Gordon FUEL CELL SYSTEMS ENGINEER Primary Care Provider [phone] Benjamin Eugene PA-C Primary Care Provider Encounter Details Date Type Department Care Team (Latest Contact Info) Description 12/30/2017 Transcribe Orders [facility] Laboratory [address] [place] [address] Shravan Owens MD [address] [place] [address] [email or web address] Nausea (Primary Dx) Social History Tobacco Use Types Packs/Day Years Used Date Smoking Tobacco: Never Smokeless Tobacco: Never Alcohol Use Standard Drinks/Week Comments No 0 (1 standard drink = 0.6 oz pur e alcohol) Comments Unknown Sex and Gender Information Value [...] Pulmonary, Allergy and Critical Care Medicine [address] [facility] [place] [address] Rashard Medellin MD 10 [facility] 2nd floor [place], [place] [id number] [email or web address] 09/26/2025 3:20 PM EST Appointment [facility] Internal Medicine [address] [place], [place] [phone] Benjamin Eugene PA-C [address] [place] [address] [email or web address] documented as of this encounter Results * TSH (12/30/2017 10:22 AM EDT) TSH 2.28 0.27 - 4.20 uIU/mL [facility] Blood 12/30/2017 10:2 2 AM EDT 12/30/2017 10:28 AM EDT us Shravan Owens MD LAB BLOOD ORDERABLES Final Re sult [facility] [address] [place], [place] [phone] * Immunoglobulin A (12/30/2017 10:22 AM EDT) IgA 223 70 - 400 mg/dL [facility] Blood 12/30/2017 10:2 2 AM EDT 12/30/2017 10:28 AM EDT Shravan Owens MD LAB BLOOD ORDERABLES Final Re sult Performing Organization Address City/[facility]/ZIP Co de Phone Number [address] [address] * C-Reactive Protein (12/30/2017 10:22 AM EDT) C REACTIVE PROTEIN 0.1 0 - 0.5 mg/L [facility] Blood 12/30/2017 10:2 2 AM EDT 12/30/2017 10:28 AM EDT Shravan Owens MD LAB BLOOD ORDERABLES Final Re sult Performing Organization Address [facility] Co de Phone Number [address] [address] * Comprehensive metabolic panel (12/30/2017 10:22 AM EDT) SODIUM 142 133 - 146 mmol/L [facility] POTASSIUM 4.1 3.3 - 5.1 mmol/L [facility] CHLORIDE 103 96 - 108 mmol/L [facility] CO2 28 21 - 35 mmol/L [facility] BUN 13 6 - 19 mg/dL [facility] CREATININE 0.70 0.5 - 1.5 mg/dL [facility] GLUCOSE 79 70 - 99 mg/dL [facility] ALBUMIN 4.2 3.9 - 4.8 g/dL [facility] TOTAL PROTEIN 7.6 6.5 - 8.0 g/dL [facility] CALCIUM 9.2 8.4 - 10.3 mg/dL [facility] ALKALINE PHOSPHATASE 75 39 - 117 U/L [facility] TOTAL BILIRUBIN 0.5 0.0 - 1.2 mg/dL [facility] AST 18 0 - 37 U/L [facility] ALT 16 0 - 40 U/L [facility] GLOBULIN 3.4 1 - 4.8 g/dL [facility] EGFR >120 >59 mL/min/1.7 3m2 [facility] Comment:If patient is black, multiply result by 1.159. The eGFR calculation has changed from the MDRD equation to the CKD-EPI equation as of November 15, 2017. ANION GAP 15 10 - 20 mmol/L [facility] Blood 12/30/2017 10:2 2 AM EDT 12/30/2017 10:28 AM EDT Shravan Owens MD LAB BLOOD ORDERABLES Final Re sult [address] [address] * CBC (12/30/2017 10:22 AM EDT) WBC 6.82 3.40 - 11.20 K/uL [facility] RBC 4.49 3.80 - 4.80 M/uL [facility] HGB 13.2 12.0 - 15.0 g/dL [facility] HCT 38.7 36.0 - 46.0 % [facility] PLT 268 130 - 400 K/uL [facility] MCV 86.2 79.0 - 98.0 fL [facility] MCH 29.4 27.0 - 34.8 pg [facility] MCHC 34.1 31.5 - 36.0 g/dL [facility] RDW 12.5 10.8 - 14.6 % [facility] MPV 11.5 9.4 - 12.4 fl [facility] NRBC 0.00 /100 WBCs [facility] ABSOLUTE NRBC 0.00 K/uL [facility] Blood 12/30/2017 10:2 2 AM EDT 12/30/2017 10:28 AM EDT us Shravan Owens MD LAB BLOOD ORDERABLES Final Re sult [address] [address] * Tissue transglutaminase IgA (12/30/2017 10:22 AM EDT) TTG IGA ANTIBODY <1.2 <4.0 (Negative) U/mL [facility] DPT OF LAB MED AND PAT+ Blood 12/30/2017 10:2 2 AM EDT 12/30/2017 10:28 AM EDT us Shravan Owens MD LAB BLOOD ORDERABLES Final Re sult [facility] DPT OF LAB MED AND PAT+ [address] [place] [address] documented in this encounter Visit Diagnoses Diagnosis [...] documented as of this encounter Care Teams Silk Spotter Relationship Specialty Start Date End Date Meredith Aranda NP [address] [place] [address] [email or web address] PCP - General Family Medicine 12/09/17 08/01/19 Uziel Baez MD [address] [place] [address] PCP - General Internal Medicine 08/02/19 09/23/19 Meredith Aranda, FUEL CELL SYSTEMS ENGINEER [address] [place] [address] PCP - General Family Medicine 09/24/19 11/15/23 Umesh Ortiz MD [address] [place] [address] PCP - General Internal Medicine 11/16/23 05/06/24 Benita Gordon NP [address] [place] [address] PCP - General Nurse Practitioner 05/07/24 05/31/24 Benjamin Eugene PA-C [address] [place] [email or web address] PCP - General Physician Support Assistant 06/01/24 Umesh Ortiz MD [address] [place] [address] Historical LMR Provider 06/30/17 Meredith Aranda, FUEL CELL SYSTEMS ENGINEER [address] [place] [address] Historical LMR Provider 06/30/17 09/23/19 Uziel Baez MD [address] [place] [address] [email or web address] Insurance Assigned Provider Internal Medicine 09/24/19 documented as of this encounter Additional Source Comments The information contained in this document represents components of the legal health record. It is not the complete legal health record.[facility]
--- OUTSIDE RECORDS SUMMARY | 2025-01-29 08:22 | XMS_ITS | Encounter Summary ---
Author Organization [facility] Address [address] [place] [address] Phone Care Team Providers Care Energy Analyst Name Role Phone Brigette Vigil MD Primary Care Provider [phone] Encounter Details Date Type Department Care Team (Late st Contact Info) Description 01/13/2014 Orders Only [facility], [address] [place] [address] Social History Tobacco Use Types Packs/Day Years [...] on filedocumented in this encounter Care Teams Energy Analyst Relationship Specialty Start Date End Date Brigette Vigil MD [address] [place] [address] [address] [place] [address] PCP - General 11/01/16 documented as of this encounter
--- OUTSIDE RECORDS SUMMARY | 2025-01-29 08:22 | XMS_ITS | Encounter Summary ---
Author Organization [facility] Address [address] [place] [address] Phone Care Team Providers Care Bail Bondsman Name Role Phone Umesh Ortiz MD Unavailable [phone] Meredith Aranda STUNT DRIVER Unavailable [phone] Uziel Baez MD Primary Care Provider Meredith Aranda STUNT DRIVER Primary Care Provider Uziel Baez MD Unavailable [phone] Umesh Ortiz MD Primary Care Provider [phone] Benita Gordon STUNT DRIVER Primary Care Provider [phone] Benjamin Eugene PA-C Primary Care Provider [phone] Encounter Details Date Type Department Care Team (Late st Contact Info) Description 08/03/2019 Procedure Pass [facility], [address] [place] [address] Social History Tobacco Use Types Packs/Day Years Used Date Smoking Tobacco: Never Smokeless Tobacco: Never Alcohol Use Standard Drinks/Week Comments No 0 (1 standard drink = 0.6 oz pur e alcohol) Comments No Sex and Gender Information Value [...] Critical Care Medicine [address] [place] [address] Rashard Medellin MD 10 [facility] 2nd [place] [address] [email or web address] 09/26/2025 3:20 PM EST Appointment [facility] Internal Medicine [address] [place] [address] Benjamin Eugene PA-C [address] [place] [address] [email or web address] documented as of this encounter Visit Diagnoses [...] documented as of this encounter Care Teams Bail Bondsman Relationship Specialty Start Date End Date Uziel Baez MD [address] [place] [address] PCP - General Internal Medicine 08/02/19 09/23/19 Meredith Aranda, STUNT DRIVER [address] [place] [address] PCP - General Family Medicine 09/24/19 11/15/23 Umesh Ortiz MD [address] [place] [address] PCP - General Internal Medicine 11/16/23 05/06/24 Benita Gordon NP [address] [place] [address] PCP - General Nurse Practitioner 05/07/24 05/31/24 Benjamin Eugene PA-C [address] [place] [address] [email or web address] PCP - General Physician Field Service Poultry Technician 06/01/24 Umesh Ortiz MD [address] [place] [address] Historical LMR Provider 06/30/17 Meredith Aranda, STUNT DRIVER [address] [place] [address] Historical LMR Provider 06/30/17 09/23/19 Uziel Baez MD [address] [place] [address] [email or web address] Insurance Assigned Provider Internal Medicine 09/24/19 documented as of this encounter Additional Source Comments The information contained in this document represents components of the legal health record. It is not the complete legal health record.[facility]
--- OUTSIDE RECORDS SUMMARY | 2025-01-29 08:22 | XMS_ITS | Encounter Summary ---
Author Organization [facility] Address [address] [place] [address] Phone Care Team Providers Care Check Weigher Name Role Phone Meredith Aranda NP Primary Care Provider [phone] Uziel Baez MD Unavailable [phone] Umesh Ortiz MD Primary Care Provider [phone] Benita Gordon NP Primary Care Provider [phone] Benjamin EugeneC Primary Care Provider [phone] Encounter Details Date Type Department Care Team (Late st Contact Info) Description 03/12/2021 Procedure Pass [address] [place] [address] Social History Tobacco Use Types Packs/Day Years [...] Pulmonary, Allergy and Critical Care Medicine 10 [facility] [place] [address] Rashard Medellin MD [address] [place] [address] 2[address] [place] [address] [email or web address] 09/26/2025 3:20 PM EST Appointment [facility] Internal Medicine [address] [place] [address] Benjamin Eugene PA-C [address] [place], [place] [email or web address] documented as of this encounter Visit Diagnoses [...] documented as of this encounter Care Teams Check Weigher Relationship Specialty Start Date End Date Meredith Aranda NP PCP - General Family Medicine 09/24/19 11/15/23 Umesh Ortiz MD [address] [place] [address], 2nd [place] [address] PCP - General Internal Medicine 11/16/23 05/06/24 Benita Gordon NP [address] [place] [address] PCP - General Nurse Practitioner 05/07/24 05/31/24 Benjamin Eugene PA-C [address] [place] [address] [email or web address] PCP - General Physician Ultrasound Technician 06/01/24 Uziel Baez MD [address] [place] [address] [email or web address] Insurance Assigned Provider Internal Medicine 09/24/19 documented as of this encounter Additional Source Comments The information contained in this document represents components of the legal health record. It is not the complete legal health record.[facility]
--- OUTSIDE RECORDS SUMMARY | 2025-01-29 08:22 | XMS_ITS | Clinical Summary ---
Author Organization [facility] Address [address] [place] [address] Phone Care Team Providers Care Rail Car Mechanic Name Role Phone Brigette Vigil MD Primary Care Provider [phone] Immunizations Immunization Administration Dates Next Due DTaP [...] age to complete this topic Care Teams Rail Car Mechanic Relationship Specialty Start Date End Date Brigette Vigil MD [address] [place] [address] [address] [place] [address] PCP - General 11/01/16
--- OUTSIDE RECORDS SUMMARY | 2025-01-29 08:22 | XMS_ITS | Encounter Summary ---
Author Organization [facility] Address [address] [place] [address] Phone Care Team Providers Care Brush Trimming Machine Setter Name Role Phone Umesh Ortiz MD Unavailable [phone] OILING TRUCK DRIVER Unavailable [phone] OILING TRUCK DRIVER Primary Care Provider [phone] Uziel Baez MD Primary Care Provider Meredith Aranda ROAD OILING TRUCK DRIVER Primary Care Provider Uziel Baez MD Unavailable [phone] Umesh Ortiz MD Primary Care Provider [phone] OILING TRUCK DRIVER Primary Care Provider [phone] Benjamin Eugene PA-C Primary Care Provider Encounter Details Date Type Department Care Team (Late st Contact Info) Description 06/19/2018 Procedure Pass [facility], Ct Scan - [address] [address] Social History Tobacco Use Types Packs/Day Years [...] Critical Care Medicine [address] [place] [address] Rashard Medellin MD [address] [facility] 2nd [place] [address] [email or web address] 09/26/2025 3:20 PM EST Appointment [facility] Internal Medicine [address] [place] [address] Benjamin Eugene PA-C [address] [place] [address] [email or web address] documented as of this encounter Visit Diagnoses [...] documented as of this encounter Care Teams Brush Trimming Machine Setter Relationship Specialty Start Date End Date Meredith Aranda, ROAD OILING TRUCK DRIVER [address] [place] [address] PCP - General Family Medicine 12/09/17 08/01/19 Uziel Baez MD [address] [place] [address] PCP - General Internal Medicine 08/02/19 09/23/19 Meredith Aranda, ROAD OILING TRUCK DRIVER [address] [place] [address] PCP - General Family Medicine 09/24/19 11/15/23 Umesh Ortiz MD [address] [place] [address] PCP - General Internal Medicine 11/16/23 05/06/24 Benita Gordon NP [address] [place] [address] PCP - General Nurse Practitioner 05/07/24 05/31/24 Benjamin Eugene PA-C [address] [place] [address] PCP - General Physician Religious Healer 06/01/24 Umesh Ortiz MD [address] [place] [address], [address] [place] [address] Historical LMR Provider 06/30/17 Meredith Aranda NP [address] [place] [address] [email or web address] Historical LMR Provider 06/30/17 09/23/19 Uziel Baez MD [address] [place] [address] [email or web address] Insurance Assigned Provider Internal Medicine 09/24/19 documented as of this encounter Additional Source Comments The information contained in this document represents components of the legal health record. It is not the complete legal health record.[facility]
--- OUTSIDE RECORDS SUMMARY | 2025-01-29 08:22 | XMS_ITS | Encounter Summary ---
Author Organization [facility] Address [address] [place] [address] Phone Care Team Providers Care Supervisor Fur Dressing Name Role Phone Brigette Vigil MD Primary Care Provider [phone] Encounter Details Date Type Department Care Team (Late st Contact Info) Description 01/13/2014 Orders Only [facility], [address] [place] [address] Social History Tobacco Use Types Packs/Day Years [...] on filedocumented in this encounter Care Teams Supervisor Fur Dressing Relationship Specialty Start Date End Date Brigette Vigil MD [address] [place] [address] [address] [place] [address] PCP - General 11/01/16 documented as of this encounter
--- OUTSIDE RECORDS SUMMARY | 2025-01-29 08:22 | XMS_ITS | Encounter Summary ---
Author Organization [facility] Address 399 [facility] [address] [place] [address] Phone Care Team Providers Care Drafter Geological Name Role Phone Uziel Baez MD Unavailable [phone] Benjamin Eugene PA-C Primary Care Provider [phone] Encounter Details Date Type Department Care Team (Late st Contact Info) Description 01/18/2025 Orders Only [facility] Internal Medicine 40 [place] [address] Provider, MD Jil [facility] [place] [id number] Social History Tobacco Use Types Packs/Day Years [...] high school, GED, job training, learning the Estonian language, technical skills, or developing parenting skills)? [...] Upcoming Encounters Date Type Department Care Team ([facility] st Contact Info) Description 04/24/2025 3:00 PM EDT Office Visit [facility] Pulmonary, Allergy and Critical Care Medicine [address] [place] [address] [place] [address] Rashard Medellin MD 10 [facility] 2nd [place] [address] 09/26/2025 3:20 PM EST Appointment [facility] Internal Medicine 40 [place], [place] [phone] Benjamin Eugene PA-C 40 [place] [address] documented as of this encounter Procedures Procedure Name Priority Date/Time Associated Diagnosis Comments OUTSIDE LAB Routine 01/17/2025 1:31 PM EDT documented in this encounter Results * Outside Lab (01/17/2025 1:31 PM EDT) us Historical Provider LAB BLOOD ORDERABLES Khloe l Result documented in this encounter Visit Diagnoses Not on filedocumented in this encounter Additional Health Concerns Assessment Noted Time PHQ-9 Depression Total Score: 8 11/30/19 25 8:53 PM EDT PHQ-2 Depression Total Score: 1 11/30/19 25 8:53 PM EDT documented as of this encounter Care Teams Drafter Geological Relationship Specialty Start Date End Date Benjamin Eugene PA-C 40 [place] [address] PCP - General Physician Enamel Pulverizer 06/01/24 Uziel Baez MD [address] [place] [address] Insurance Assigned Provider Internal Medicine 09/24/19 documented as of this encounter Additional Source Comments The information contained in this document represents components of the legal health record. It is not the complete legal health record.[facility]
--- OUTSIDE RECORDS SUMMARY | 2025-01-29 08:22 | XMS_ITS | Encounter Summary ---
Author Organization [facility] Address [address] [place] [address] Phone Care Team Providers Care Commercial Drafter Name Role Phone Meredith Aranda NP Primary Care Provider [phone] Uziel Baez MD Unavailable [phone] Umesh Ortiz MD Primary Care Provider [phone] Benita Gordon NP Primary Care Provider [phone] Benjamin EugeneC Primary Care Provider [phone] Encounter Details Date Type Department Care Team (Late st Contact Info) Description 04/01/2021 Ancillary Orders [facility],Outside Imaging 30 [place] [address] System, Provider Not In, [facility] [address] [address] Social History Tobacco Use Types Packs/Day Years [...] high school, GED, job training, learning the Georgian language, technical skills, or developing parenting skills)? [...] basis, and looking for work? No 03/23/2021 Comments No Sex and Gender Information Value [...] [facility], Allergy [facility] Critical [facility] [address] [place] [address] Rashard Medellin MD [address] [place] [address] 09/26/2025 3:20 PM EST Appointment [facility] Internal Medicine 40 [place], [place] [phone] Benjamin Eugene PA-C 40 [place], [place] documented as of this encounter Results * MRI Lower Extremity Outside (No Interpretation) (02/29/2020 12:00 AM EDT) Narrative SYSTEMGENERATED, DOCUMENTATION - 04/01/2021 10:23 AM EDT This study is for PACS storage only and not for interpretation. us Provider Not In System PhD IMG OUTSIDE IMAGING W /OUT INTERPRETATION Final Result documented in this encounter Visit Diagnoses [...] documented as of this encounter Care Teams Commercial Drafter Relationship Specialty Start Date End Date Meredith Aranda NP PCP - General Family Medicine 09/24/19 11/15/23 Umesh Ortiz MD [address] [place] [address], 2nd [place] [address] PCP - General Internal Medicine 11/16/23 05/06/24 Benita Gordon NP [address] [place] [address] PCP - General Nurse Practitioner 05/07/24 05/31/24 Benjamin Eugene PA-C [address] [place] [address] PCP - General Physician Filter Cloth Maker 06/01/24 Uziel Baez MD [address] [place] [address] [email or web address] Insurance Assigned Provider Internal Medicine 09/24/19 documented as of this encounter Additional Source Comments The information contained in this document represents components of the legal health record. It is not the complete legal health record.[facility]
--- OUTSIDE RECORDS SUMMARY | 2025-01-29 08:22 | XMS_ITS | Encounter Summary ---
Author Organization [facility] Address 399 [facility] [address] [place] [address] Phone Care Team Providers Care Medical Physics Researcher Name Role Phone Uziel Baez MD Unavailable [phone] Benjamin Eugene PA-C Primary Care Provider [phone] Encounter Details Date Type Department Care Team (Late st Contact Info) Description 01/25/2025 Orders Only [facility] Internal Medicine 40 [place] [address] Provider, MD Jil [facility] [place] [phone] Social History Tobacco Use Types Packs/Day Years [...] high school, GED, job training, learning the Kosovan language, technical skills, or developing parenting skills)? [...] Upcoming Encounters Date Type Department Care Team ([facility] st Contact Info) Description 04/24/2025 3:00 PM EDT Office Visit [facility] Pulmonary, Allergy and Critical Care Medicine [address] [place] [address] [place] [address] Rashard Medellin MD 10 [facility] 2nd [place] [address] 09/26/2025 3:20 PM EST Appointment [facility] Internal Medicine 40 [place], [place] [phone] Benjamin Eugeen PA-C 40 [place] [address] [email or web address] documented as of this encounter Procedures Procedure Name Priority Date/Time Associated Diagnosis Comments OUTSIDE LAB Routine 01/17/2025 2:04 PM EDT documented in this encounter Results * Outside Lab (01/17/2025 2:04 PM EDT) us Historical Provider LAB BLOOD ORDERABLES Khloe l Result documented in this encounter Visit Diagnoses Not on filedocumented in this encounter Additional Health Concerns Assessment Noted Time PHQ-9 Depression Total Score: 8 11/30/19 25 8:53 PM EDT PHQ-2 Depression Total Score: 1 11/30/19 25 8:53 PM EDT documented as of this encounter Care Teams Medical Physics Researcher Relationship Specialty Start Date End Date Benjamin Eugene PA-C 40 [place] [address] PCP - General Physician Police Superintendent 06/01/24 Uziel Baez MD [address] [place] [address] [phone] Insurance Assigned Provider Internal Medicine 09/24/19 documented as of this encounter Additional Source Comments The information contained in this document represents components of the legal health record. It is not the complete legal health record.[facility]
--- OUTSIDE RECORDS SUMMARY | 2025-01-29 08:22 | XMS_ITS | Encounter Summary ---
Author Organization [facility] Address [address] [address] Phone Care Team Providers Care Biology Instructor Name Role Phone Uziel Baez MD Unavailable [phone] Benjamin Eugene PA-C Primary Care Provider [phone] Reason for Visit * Reason Onset Date Comments Establish Care 12/20/2024 Encounter Details Date Type Department Care Team (Late st Contact Info) Description 12/20/2024 Telephone [facility] Pulmonary, Allergy and Critical Care Medicine 10 [place], [place] [phone] Benjamin Eugene PA-C 40 [place] [address] [email or web address] Establish Care Social History Tobacco Use Types [...] high school, GED, job training, learning the Canadian language, technical skills, or developing parenting skills)? [...] as of this encounter Progress Notes * Kaitlin Gandhigh - 01/10/2025 4:59 PM EDT Patient has been scheduled * Kelli De Santiago - 12/21/2024 3:50 PM EDT PT mom Magan called to schedule an apt for pt. Requesting a later in the day appt scheduled Please advise. Central Support Steward/Stewardess Chief Cargo Vessel (Please do not reply to this user; this inbox is not monitored.) Thank you. * Dulce Maria Fleming - 12/20/2024 4:11 PM EDT Patient called in to schedule a NPV. Referral is on file. Patient stated it is best to call anytimebetween 11:30-12:30 or after 3:30. Please contact and advise. Central Support Steward/Stewardess Chief Cargo Vessel (Please do not reply to this user; this inbox is not monitored.) Thank you. documented in this encounter Plan of Treatment Upcoming Encounters Date Type Department Care Team (Late st Contact Info) Description 04/24/2025 3:00 PM EDT Office Visit [facility] Pulmonary, Allergy and Critical Care Medicine [address] [place] [address] [place] [address] Rashard Medellin MD [address] [place] [address] 2nd [place] [address] 09/26/2025 3:20 PM EST Appointment [facility] Internal Medicine 40 [place] [address] Benjamin Eugene PA-C 40 [place], [place] documented as of this encounter Visit Diagnoses Not on filedocumented in this encounter Additional Health Concerns Assessment Noted Time PHQ-9 Depression Total Score: 8 11/30/19 25 8:53 PM EDT PHQ-2 Depression Total Score: 1 11/30/19 25 8:53 PM EDT documented as of this encounter Care Teams Biology Instructor Relationship Specialty Start Date End Date Benjamin Eugene PA-C 40 [place] [address] PCP - General Physician De Alcoholizer 06/01/24 Uziel Baez MD 40 [place] [address] Insurance Assigned Provider Internal Medicine 09/24/19 documented as of this encounter Additional Source Comments The information contained in this document represents components of the legal health record. It is not the complete legal health record.[facility]
--- OUTSIDE RECORDS SUMMARY | 2025-01-29 08:22 | XMS_ITS | Encounter Summary ---
Author Organization [facility] Address 399 [facility] [address] [place] [address] Phone Care Team Providers Care Spinning Frame Fixer Name Role Phone Uziel Baez MD Unavailable [phone] Benjamin Eugene PA-C Primary Care Provider [phone] Encounter Details Date Type Department Care Team (Late st Contact Info) Description 01/24/2025 Orders Only [facility] Internal Medicine 40 [place] [address] Provider, MD Jil [facility] [place] [phone] Social History Tobacco Use Types Packs/Day Years [...] high school, GED, job training, learning the Guatemalan language, technical skills, or developing parenting skills)? [...] Upcoming Encounters Date Type Department Care Team ([facility] st Contact Info) Description 04/24/2025 3:00 PM EDT Office Visit [facility] Pulmonary, Allergy and Critical Care Medicine [address] [place] [address] [place] [address] Rashard Medellin MD 10 [facility] 2nd [place] [address] 09/26/2025 3:20 PM EST Appointment [facility] Internal Medicine 40 [place], [place] [phone] Benjamin Eugene PA-C 40 [place] [address] documented as of this encounter Procedures Procedure Name Priority Date/Time Associated Diagnosis Comments OUTSIDE LAB Routine 01/17/2025 11:28 AM EDT documented in this encounter Results * Outside Lab (01/17/2025 11:28 AM EDT) us Historical Provider LAB BLOOD ORDERABLES Khloe l Result documented in this encounter Visit Diagnoses Not on filedocumented in this encounter Additional Health Concerns Assessment Noted Time PHQ-9 Depression Total Score: 8 11/30/19 25 8:53 PM EDT PHQ-2 Depression Total Score: 1 11/30/19 25 8:53 PM EDT documented as of this encounter Care Teams Spinning Frame Fixer Relationship Specialty Start Date End Date Benjamin Eugene PA-C 40 [place] [address] PCP - General Physician Agency Cashier 06/01/24 Uziel Baez MD 40 [place], [place] [phone] Insurance Assigned Provider Internal Medicine 09/24/19 documented as of this encounter Additional Source Comments The information contained in this document represents components of the legal health record. It is not the complete legal health record.[facility]
--- OUTSIDE RECORDS SUMMARY | 2025-01-29 08:23 | XMS_ITS | Encounter Summary ---
Author Organization [facility] Address [address] [place] [address] [place] [address] Phone Care Team Providers Care Class A Regional Truck Driver Name Role Phone Uziel Baez MD Unavailable [phone] Benjamin Eugene PA-C Primary Care Provider [phone] Encounter Details Date Type Department Care Team (Late st Contact Info) Description 07/10/2024 Transcribe Orders Virtual Department 30 [place] [address] Geronimo Warren MD [address] [place] [address] Dr [address] [place] [address] RUQ pain (Primary Dx) Social History Tobacco [...] or tries to control you? No 06/01/2024 Comments No Sex and Gender Information Value [...] [facility] Pulmonary, Allergy and Critical Care Medicine [address] [place] [address] Rashard Medellin MD [address] [place] [address] [email or web address] 09/26/2025 3:20 PM EST Appointment [facility] Internal Medicine 40 [place] [address] Benjamin Eugene PA-C 40 [place] [address] [email or web address] documented as of this encounter Results [...] originally createdby Ronaldo Warren. Geronimo Warren MD [facility] Final Res ult documented in this encounter Visit Diagnoses Diagnosis RUQ pain- Primary Abdominal pain, right upper quadrant RUQ pain Abdominal pain, right upper quadrant documented in this encounter Additional Health Concerns Assessment Noted Time PHQ-2 Depression Total Score: 1 06/01/20 24 7:27 AM EDT documented as of this encounter Care Teams Class A Regional Truck Driver Relationship Specialty Start Date End Date Benjamin Eugene PA-C [address] [place] [address] [email or web address] PCP - General Physician Civil Engineer Helper 06/01/24 Uziel Baez MD [address] [place] [address] [email or web address] Insurance Assigned Provider Internal Medicine 09/24/19 documented as of this encounter Additional Source Comments The information contained in this document represents components of the legal health record. It is not the complete legal health record.[facility]
--- OUTSIDE RECORDS SUMMARY | 2025-01-29 08:23 | XMS_ITS | Encounter Summary ---
Author Organization [facility] Address [address] [place] [address] Phone Care Team Providers Care Telephone Clerks Supervisor Name Role Phone Umesh Ortiz MD Unavailable Meredith Aranda MINE WEDGE SAWYER Unavailable [phone] Uziel Baez MD Primary Care Provider [phone] Meredith Aranda MINE WEDGE SAWYER Primary Care Provider Uziel Baez MD Unavailable Umesh Ortiz MD Primary Care Provider Benita Gordon MINE WEDGE SAWYER Primary Care Provider [phone] Benjamin Eugene PA-C Primary Care Provider Encounter Details Date Type Department Care Team (Latest Contact Info) Description 09/07/2019 Transcribe Orders Virtual Department 30 [place] [address] Fredy Hines MD [address] [place] [address] [email or web address] RUQ pain (Primary Dx); Nausea Social History [...] [facility] Pulmonary, Allergy and Critical Care Medicine [address] [place] [address] [place] [address] Fredy Medellin MD [address] [place] [address] [place] [address] 09/26/2025 3:20 PM EST Appointment [facility] Internal Medicine 40 [place] [address] Benjamin Eugene PA-C 40 [place] [address] [email or web address] documented as of this encounter Results * [...] IMAGES/FRAMES POS - [id number] Fredy Hines MD [facility] Final Resu lt documented in this encounter Visit Diagnoses Diagnosis [...] documented as of this encounter Care Teams Telephone Clerks Supervisor Relationship Specialty Start Date End Date Uziel Baez MD 40 [place] [address] PCP - General Internal Medicine 08/02/19 09/23/19 Meredith Aranda NP [address] [place] [address] PCP - General Family Medicine 09/24/19 11/15/23 Umesh Ortiz MD [address] [place] [address], 2nd [place] [address] PCP - General Internal Medicine 11/16/23 05/06/24 Benita Gordon MINE WEDGE SAWY[place] [facility] [address] PCP - General Nurse Practitioner 05/07/24 05/31/24 Benjamin Eugene PA-C 40 [place] [address] PCP - General Physician Health And Safety Advisor 06/01/24 Umesh Ortiz MD [address] [place] [address], 2nd [place] [address] Historical LMR Provider 06/30/17 Meredith Aranda NP [address] [place] [address] 6 [place] [address] Historical LMR Provider 06/30/17 09/23/19 Uziel Baez MD [address] [place] [address] Insurance Assigned Provider Internal Medicine 09/24/19 documented as of this encounter Additional Source Comments The information contained in this document represents components of the legal health record. It is not the complete legal health record.[facility]
--- OUTSIDE RECORDS SUMMARY | 2025-01-29 08:23 | XMS_ITS | Encounter Summary ---
Author Organization [facility] Address [address] [place] [address] Phone Care Team Providers Care Mortgage Closing Clerk Name Role Phone Umesh Ortiz MD Unavailable Meredith Aranda FIELD MAP EDITOR Unavailable [phone] Meredith Aranda FIELD MAP EDITOR Primary Care Provider Uziel Baez MD Primary Care Provider Meredith Aranda FIELD MAP EDITOR Primary Care Provider Uziel Baez MD Unavailable [phone] Umesh Ortiz MD Primary Care Provider Benita Gordon FIELD MAP EDITOR Primary Care Provider [phone] Benjamin Eugene PA-C Primary Care Provider Encounter Details Date Type Department Care Team (Latest Contact Info) Description 07/06/2019 Transcribe Orders Virtual Department 30 [place] [address] Rashard Hines MD [address] [place] [address] [email or web address] RUQ pain (Primary Dx) Social History Tobacco [...] Pulmonary, Allergy and Critical Care Medicine 10 [place] [address] Rashard Medellin MD [address] [place] [address] 2nd [place] [address] 09/26/2025 3:20 PM EST Appointment [facility] Internal Medicine 40 [place] [address] Benjamin Eugene PA-C 40 [place] [address] [email or web address] documented as of this encounter Results * US PELVIS TRANSABDOMINAL ONLY WITH DOPPLER (07/12/2019 6:03 PM EDT) Anatomical Region Laterality Modality Pelvis, Uterus/Adnexa Ultrasound 07/12/2019 7:30 PM EDT Impressions 07/12/2019 7:38 PM EDT Physiologic appearance of the uterus and ovaries. POS - [id number] Narrative 07/12/2019 7:38 PM EDT EXAM: ?? [...] of the uterus and ovaries. POS - [id number] Rashard Hines MD [facility] PELVIS Final Resu lt documented in this encounter [...] documented as of this encounter Care Teams Mortgage Closing Clerk Relationship Specialty Start Date End Date Meredith Aranda, FIELD MAP EDITOR [address] [place] [address] PCP - General Family Medicine 12/09/17 08/01/19 Uziel Baez MD [address] [place] [address] PCP - General Internal Medicine 08/02/19 09/23/19 Meredith Aranda NP [address] [place] [address] PCP - General Family Medicine 09/24/19 11/15/23 Umesh Ortiz MD [address] [place] [address], 2nd [place] [address] PCP - General Internal Medicine 11/16/23 05/06/24 Benita Gordon, SHIMA [address] [place] [address] PCP - General Nurse Practitioner 05/07/24 05/31/24 Benjamin Eugene PA-C 40 [place] [address] PCP - General Physician Lap Cutter Truer Operator 06/01/24 Umesh Ortiz MD [address] [place] [address], 2nd [place] [address] Historical LMR Provider 06/30/17 Meredith Aranda NP [address] [place] [address] 6 [place] [address] Historical LMR Provider 06/30/17 09/23/19 Uziel Baez MD 40 [place] [address] Insurance Assigned Provider Internal Medicine 09/24/19 documented as of this encounter Additional Source Comments The information contained in this document represents components of the legal health record. It is not the complete legal health record.[facility]
--- OUTSIDE RECORDS SUMMARY | 2025-01-29 08:23 | XMS_ITS | Encounter Summary ---
Author Organization [facility] Address [address] [place] [address] [place] [address] Phone Care Team Providers Care Swing Manager Name Role Phone Uziel Baez MD Unavailable [phone] Benita Gordon NP Primary Care Provider [phone] Benjamin Eugene PA-C Primary Care Provider [phone] Encounter Details Date Type Department Care Team (Late st Contact Info) Description 05/07/2024 Procedure Pass [facility], Ct Scan - [address] [address] Social History Tobacco Use Types Packs/Day Years [...] with a working camera? Not on file Comments No Sex and Gender Information Value Date Recorded Sex Assigned at Female 03/11/2019 12:13 PM EDT Legal Sex Female 8:48 PM EDT Gender Identity Female 03/11/2019 12:13 PM EDT Sexual Orientation Straight 03/11/2019 12 :13 PM EDT documented as of this encounter Functional Status * Calculated C-SSRS Risk Score (Lifetime/Recent) Answer Date of Assessment Author No Risk Indicated 05/07/2024 12:59 AM EDT Cyn Mcnally RN * Real Suicide Severity Rating Scale (Screener/Recent Self-Report) Question Answer Date of Assessment Author 1. Wish to be (Past 1 Month) No 05/07/2024 12:59 AM EDT Cyn Mcnally, KE 2. Non-Specific Active Suicidal Thoughts (Past 1 Month) No 05/07/2024 12:59 AM EDT Cyn Mcnlaly, KE 6. Suicidal Behavior (Lifetime) No 05/07/2024 12:59 AM EDT Cyn Mcnally, KE documented as of this encounter Plan of Treatment Upcoming Encounters Date Type Department Care Team ([facility] st Contact Info) Description 04/24/2025 3:00 PM EDT Office Visit [facility] Pulmonary, Allergy and Critical Care Medicine [address] [place] [address] Rashard Medellin MD [address] [place] [address] [email or web address] 09/26/2025 3:20 PM EST Appointment [facility] Internal Medicine 40 [place] [address] Benjamin Eugene PA-C 40 [place] [address] [email or web address] documented as of this encounter Visit Diagnoses Not on filedocumented in this encounter Additional Health Concerns Assessment Noted Time PHQ-2 Depression Total Score: 0 07/02/20 22 1:23 PM EDT documented as of this encounter Care Teams Swing Manager Relationship Specialty Start Date End Date Benita Gordon NP [address] [place] [address] PCP - General Nurse Practitioner 05/07/24 05/31/24 Benjamin Eugene PA-C [address] [place] [address] [email or web address] PCP - General Physician Software Development Engineer 06/01/24 Uziel Baez MD 40 [place] [address] [email or web address] Insurance Assigned Provider Internal Medicine 09/24/19 documented as of this encounter Additional Source Comments The information contained in this document represents components of the legal health record. It is not the complete legal health record.[facility]
== END 2025-01-29 08:15 | disposition home or self-care (01) ==
LOC: HO.LAB 08:14
PROVIDERS: PCP Physician Assistant Surgical; Visit Provider Internal Medicine Gastroenterology
DX: Z91.018 Allergy to other foods (principal)
CPT/HCPCS: 36415; 86003

== ENCOUNTER 2025-02-27 08:26 | Day surgery (SDC) | payer OTHER, SELFPAY ==
--- OUTSIDE RECORDS SUMMARY | 2025-01-18 07:02 | XMS_ITS | Clinical Summary ---
Author Organization [facility] Address [address] [place] [address] Phone Care Team Providers Care Parking Attendant Name Role Phone Brigette Vigil MD Primary Care Provider [phone] Immunizations Immunization Administration Dates Next Due DTaP [...] age to complete this topic Care Teams Parking Attendant Relationship Specialty Start Date End Date Brigette Vigil MD [address] [place] [address] Dr [address] [place] [address] PCP - General 11/01/16
--- OUTSIDE RECORDS SUMMARY | 2025-01-18 07:02 | XMS_ITS | Clinical Summary ---
Author Organization [facility] Address [address] [place] [address] Phone Care Team Providers Care Sidewalk Inspector Name Role Phone Uziel Baez MD Unavailable [phone] Benjamin Eugene PA-C Primary Care Provider [phone] Allergies No known active allergies Medications Medication [...] hip dysplasia and had been treated at [facility] for a long time. Of [...] will send the patient to [facility] to possibly undergo cortisone injections which could [...] has been seen by her GI at [facility] and has undergone HIDA scan, CT and an EGD. However patient continues to have some right upper quadrant pain and had version to certain foods. I have asked for Dr. 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 She also has a barium swallow that is currently pending Assessment & Plan (06/18/2024 12:19 PM EDT): Patient with noted abdominal pain in the right upper quadrant and epigastric region. 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 Given her symptoms I would also obtain [...] next week and follows with GI at [facility]. Assessment & Plan (07/09/2024 12:37 PM [...] Type Department Care Team Description 01/03/2025 Telephone [facility] Internal Medicine 40 [facility] [place] [address] Benjamin Eugene PA-C Referral to Orthopedist 12/27/2024 Telephone [facility] Internal Medicine 40 [place] [address] Mary Ann Balderas RN MRI denial 12/20/[address] [facility] Pulmonary, Allergy and Critical Care Medicine 10 [place] [address] Benjamin Eugene PA-C Establish Care 12/17/2024 4:00 PM EDT Office Visit [facility] Internal Medicine 40 [facility] [place] [address] Benjamin Eugene PA-C Acute exacerbation of chronic low back pain (Primary Dx); Right hip pain 12/14/2024 Telephone [facility] Internal Medicine 40 [facility] [place] [address] Benjamin Eugene PA-C Reschedule new patient appt 12/13/2024 Telephone [facility] Internal Medicine 40 [facility] [place] [address] Benjamin Eugene PA-C Question 12/06/2024 Orders Only [facility] Internal Medicine 40 [facility] [place] [address] Provider, MD Jil 11/30/2024 4:00 PM EDT Office Visit [facility] Internal Medicine 40 [facility] [place] [address] Lakeisha Lucero PA-C Right hip pain (Primary Dx) 11/27/2024 Telephone [facility] Internal Medicine 40 [facility] [place] [address] Benjamin Eugene PA-C Right hip pain from Last 3 Months Immunizations Name Administration Dates Next Due COVID-19 (Pre-07/04) Pfizer Vaccine, mRNA, PF 12/12/2020,11/21/2020 COVID-19, Unspecified Formulation 08/16/2024 DTaP 2002, 0,04/30/1999,03/02,1998 Dtap, 5 Pertussis Antigens 2002,,04/30/1999,03/02,1998 [id number] FORMULATION 07/09/2009 [id number] 07/09/2009 HPV,quadrivalent 02/16/2013,05/09/2012, 2 Hepatitis B 07/29/1999,1998,1998 [...] high school, GED, job training, learning the Spanish language, technical skills, or developing parenting skills)? [...] Critical Care Medicine [address] [place] [address] Rashard Medellin MD 10 [facility] 2nd [place] [address] [email or web address] 09/26/2025 3:20 PM EST Appointment [facility] Internal Medicine 40 [place], [place] [phone] Benjamin Eugene PA-C 40 [place], [place] [phone] [email or web address] Health Maintenance Due Date Last Done Comments [...] SEE NARRATIVE - 08/15/2024 3:46 [place] [address] Emergency Room Clerk: Dieudonne Laurent MD ?? [employer] Cytology Report FINAL DIAGNOSIS A. ??PAP SMEAR (THIN PREP) CE: SPECIMEN ADEQUACY: Satisfactory for evaluation; transformation zone present. INTERPRETATION: NEGATIVE FOR INTRAEPITHELIAL LESION OR MALIGNANCY. This specimen was analyzed by the automated ThinPrep Imaging System (Tier 1 Performance.) and manually rescreened by a warehouse manager and/or pathologist. Electronically Signed Out By: ??MD [...] : ??2000 (Age: 23) Sex: ??F Institution: ??[facility] Location: [facility] Date of Collection: ??08/13/2024 Date of Reported: ??08/15/2024 15:46 Results to: Maricarmen Horvath Maricarmen Murillo MD CYTOLO GY ORDERABLES Performing Organization Address City/[facility] Co de Phone Number SEE NARRATIVE * Hepatitis C antibody, qualitative (03/26/2021 9:26 AM EDT) HCV NON-REACTIV E NON-REACTI VE [facility] Blood 03/26/2021 9:26 AM EDT 03/26/2021 9:31 AM EDT Meredith Aranda NP LAB BLOOD ORDERABLES Performing Organization Address City/[facility] Co de Phone Number [facility] [address] [place] [address] from Last 3 Months or Most Recently Relevant to Health Maintenance Care Teams Sidewalk Inspector Relationship Specialty Start Date End Date Benjamin Eugene PA-C 40 [place], [place] [email or web address] PCP - General Physician Chief Librarian Work With Blind 06/01/24 Uziel Baze MD 40 [place], [place] [email or web address] Insurance Assigned Provider Internal Medicine 09/24/19 Additional Source Comments The information contained in this document represents components of the legal health record. It is not the complete legal health record.[facility]
--- OUTSIDE RECORDS SUMMARY | 2025-01-18 07:02 | XMS_ITS | Encounter Summary ---
Author Organization [facility] Address [address] [place] [address] Phone Care Team Providers Care Architecture Analyst Name Role Phone Brigette Vigil MD Primary Care Provider [phone] Encounter Details Date Type Department Care Team (Late st Contact Info) Description 01/13/2014 Orders Only [facility], [address] [place] [address] Social History Tobacco Use Types Packs/Day Years [...] on filedocumented in this encounter Care Teams Architecture Analyst Relationship Specialty Start Date End Date Brigette Vigil MD [address] [place] [address] [address] [place] [address] PCP - General 11/01/16 documented as of this encounter
--- OUTSIDE RECORDS SUMMARY | 2025-01-18 07:02 | XMS_ITS | Encounter Summary ---
Author Organization [facility] Address [address] [place] [address] Phone Care Team Providers Care Stain Sprayer Name Role Phone Umesh Ortiz MD Unavailable [phone] Meredith Aranda JAVA CONSULTANT Unavailable [phone] Meredith Aranda JAVA CONSULTANT Primary Care Provider Uziel Baez MD Primary Care Provider [phone] Meredith Aranda JAVA CONSULTANT Primary Care Provider Uziel Baez MD Unavailable [phone] Umesh Ortiz MD Primary Care Provider Benita Gordon JAVA CONSULTANT Primary Care Provider [phone] Benjamin Eugene PA-C Primary Care Provider Encounter Details Date Type Department Care Team (Latest Contact Info) Description 12/30/2017 Transcribe Orders [facility] Laboratory [address] [place] [address] Shravan Owens MD [address] [place] [address] [email or web address] ([email or web address] Nausea (Primary Dx) Social History Tobacco Use [...] Pulmonary, Allergy and Critical Care Medicine 10 [facility] [address] Rashard Medellin MD 10 [facility] 2nd [place] [address] [email or web address] 09/26/2025 3:20 PM EST Appointment [facility] Internal Medicine 40 [place] [address] Benjamin Eugene PA-C 40 [place] [address] [email or web address] documented as of this encounter Results * TSH (12/30/2017 10:22 AM EDT) TSH 2.28 0.27 - 4.20 uIU/mL [facility] Blood 12/30/2017 10:2 2 AM EDT 12/30/2017 10:28 AM EDT Shravan Owens MD LAB BLOOD ORDERABLES [facility] [address] [place], [place] [phone] * Immunoglobulin A (12/30/2017 10:22 AM EDT) IgA 223 70 - 400 mg/dL [facility] Blood 12/30/2017 10:2 2 AM EDT 12/30/2017 10:28 AM EDT Shravan Owens MD LAB BLOOD ORDERABLES [address] [address] * C-Reactive Protein (12/30/2017 10:22 AM EDT) C REACTIVE PROTEIN 0.1 0 - 0.5 mg/L [facility] Blood 12/30/2017 10:2 2 AM EDT 12/30/2017 10:28 AM EDT Shravan Owens MD LAB BLOOD ORDERABLES Performing Organization Address [facility] Co de Phone Number [address] [address] * Comprehensive metabolic panel (12/30/2017 10:22 AM EDT) SODIUM 142 133 - 146 mmol/L [facility] POTASSIUM 4.1 3.3 - 5.1 mmol/L [facility] CHLORIDE 103 96 - 108 mmol/L [facility] CO2 28 21 - 35 mmol/L [facility] BUN 13 6 - 19 mg/dL [facility] CREATININE 0.70 0.5 - 1.5 mg/dL [facility] GLUCOSE 79 70 - 99 mg/dL [facility] ALBUMIN 4.2 3.9 - 4.8 g/dL [facility] TOTAL PROTEIN 7.6 6.5 - 8.0 g/dL [facility] CALCIUM 9.2 8.4 - 10.3 mg/dL [facility] ALKALINE PHOSPHATASE 75 39 - 117 U/L [facility] TOTAL BILIRUBIN 0.5 0.0 - 1.2 mg/dL [facility] AST 18 0 - 37 U/L [facility] ALT 16 0 - 40 U/L [facility] GLOBULIN 3.4 1 - 4.8 g/dL [facility] EGFR >120 >59 mL/min/1.7 3m2 [facility] Comment:If patient is black, multiply result by 1.159. The eGFR calculation has changed from the MDRD equation to the CKD-EPI equation as of November 15, 2017. ANION GAP 15 10 - 20 mmol/L [facility] Blood 12/30/2017 10:2 2 AM EDT 12/30/2017 10:28 AM EDT Shravan Owens MD LAB BLOOD ORDERABLES [address] [address] * CBC (12/30/2017 10:22 AM EDT) WBC 6.82 3.40 - 11.20 K/uL [facility] RBC 4.49 3.80 - 4.80 M/uL [facility] HGB 13.2 12.0 - 15.0 g/dL [facility] HCT 38.7 36.0 - 46.0 % [facility] PLT 268 130 - 400 K/uL [facility] MCV 86.2 79.0 - 98.0 fL [facility] MCH 29.4 27.0 - 34.8 pg [facility] MCHC 34.1 31.5 - 36.0 g/dL [facility] RDW 12.5 10.8 - 14.6 % [facility] MPV 11.5 9.4 - 12.4 fl [facility] NRBC 0.00 /100 WBCs [facility] ABSOLUTE NRBC 0.00 K/uL [facility] Blood 12/30/2017 10:2 2 AM EDT 12/30/2017 10:28 AM EDT Shravan Owens MD LAB BLOOD ORDERABLES [address] [address] * Tissue transglutaminase IgA (12/30/2017 10:22 AM EDT) TTG IGA ANTIBODY <1.2 <4.0 (Negative) U/mL [facility] DPT OF LAB MED AND PAT+ Blood 12/30/2017 10:2 2 AM EDT 12/30/2017 10:28 AM EDT Shravan Owens MD LAB BLOOD ORDERABLES [facility] DPT OF LAB MED AND PAT+ [address] [place] [address] documented in this encounter Visit Diagnoses Diagnosis [...] documented as of this encounter Care Teams Stain Sprayer Relationship Specialty Start Date End Date Meredith Aranda NP [address] [place] [address] [email or web address] PCP - General Family Medicine 12/09/17 08/01/19 Uziel Baez MD [address] [place] [address] PCP - General Internal Medicine 08/02/19 09/23/19 Meredith Aranda JAVA CONSULTANT [address] [address] PCP - General Family Medicine 09/24/19 11/15/23 Umesh Ortiz MD [address] [place] [address] PCP - General Internal Medicine 11/16/23 05/06/24 Benita Gordon NP [address] [place] [address] PCP - General Nurse Practitioner 05/07/24 05/31/24 Benjamin Eugene PA-C [address] [place] [address] PCP - General Physician Payroll Accounting Specialist 06/01/24 Umesh Ortiz MD [address] [place] [address] Historical LMR Provider 06/30/17 Meredith Aranda NP [address] [place] [address] Historical LMR Provider 06/30/17 09/23/19 Uziel Baez MD [address] [place] [address] Insurance Assigned Provider Internal Medicine 09/24/19 documented as of this encounter Additional Source Comments The information contained in this document represents components of the legal health record. It is not the complete legal health record.[facility]
--- OUTSIDE RECORDS SUMMARY | 2025-01-18 07:02 | XMS_ITS | Encounter Summary ---
Author Organization [facility] Address [address] [place] [address] [place] [address] Phone Care Team Providers Care Needle Leader Name Role Phone Uziel Baez MD Unavailable [phone] Benjamin Eugene PA-C Primary Care Provider Encounter Details Date Type Department Care Team (Late st Contact Info) Description 07/10/2024 Transcribe Orders Virtual Department 30 [place] [address] Geronimo Warren MD [address] [place] [address] Dr [place] [place] [address] RUQ pain (Primary Dx) Social History Tobacco [...] Upcoming Encounters Date Type Department Care Team ([facility] st Contact Info) Description 04/24/2025 3:00 PM EDT Office Visit [facility] Pulmonary, Allergy and Critical Care Medicine 10 [place] [address] Rashard Medellin MD [address] [id number] [email or web address] 09/26/2025 3:20 PM EST Appointment [facility] Internal Medicine 40 [place] [address] Benjamin Eugene PA-C 40 [place] [address] [email or web address] documented as [...] documented as of this encounter Care Teams Needle Leader Relationship Specialty Start Date End Date Benjamin Eugene PA-C 40 [place] [address] PCP - General Physician Front End Java Developer 06/01/24 Uziel Baez MD 40 [place] [address] Insurance Assigned Provider Internal Medicine 09/24/19 documented as of this encounter Additional Source Comments The information contained in this document represents components of the legal health record. It is not the complete legal health record.[facility]
--- OUTSIDE RECORDS SUMMARY | 2025-01-18 07:02 | XMS_ITS | Encounter Summary ---
Author Organization [facility] Address [address] [place] [address] Phone Care Team Providers Care Micro Computer Data Processor Name Role Phone Brigette Vigil MD Primary Care Provider [phone] Encounter Details Date Type Department Care Team (Late st Contact Info) Description 01/13/2014 Orders Only [facility], [address] [place] [address] Social History Tobacco Use Types Packs/Day Years [...] on filedocumented in this encounter Care Teams Micro Computer Data Processor Relationship Specialty Start Date End Date Brigette Vigil MD [address] [place] [address] [address] [place] [address] PCP - General 11/01/16 documented as of this encounter
--- OUTSIDE RECORDS SUMMARY | 2025-01-18 07:02 | XMS_ITS | Encounter Summary ---
Author Organization [facility] Address [address] [place] [address] Phone Care Team Providers Care Medical Imaging Director Name Role Phone Brigette Vigil MD Primary Care Provider [phone] Encounter Details Date Type Department Care Team (Late st Contact Info) Description 01/13/2014 Orders Only [facility], [address] [place] [address] Social History Tobacco Use Types Packs/Day Years [...] filedocumented in this encounter Care Teams Medical Imaging Director Relationship Specialty Start Date End Date Brigette Vigil MD [address] [place] [address] [address] [place] [address] PCP - General 11/01/16 documented as of this encounter
--- OUTSIDE RECORDS SUMMARY | 2025-01-18 07:02 | XMS_ITS | Encounter Summary ---
Author Organization [facility] Address [address] [place] [address] Phone Care Team Providers Care Fish Rod Maker Name Role Phone Umesh Ortiz MD Unavailable Meredith Aranda SITE AUDITOR Unavailable [phone] Uziel Baez MD Primary Care Provider [phone] Meredith Aranda SITE AUDITOR Primary Care Provider Uziel Baez MD Unavailable Umesh Ortiz MD Primary Care Provider Benita Gordon SITE AUDITOR Primary Care Provider [phone] Benjamin Eugene PA-C Primary Care Provider Encounter Details Date Type Department Care Team (Late st Contact Info) Description 08/03/2019 Procedure Pass [facility], [address] [place] [address] Social History Tobacco Use Types Packs/Day Years [...] Critical Care Medicine [address] [place], [place] [id number] Rashard Medellin MD 10 [facility] 2nd [place] [address] [email or web address] 09/26/2025 3:20 PM EST Appointment [facility] Internal Medicine 40 [place], [place] [phone] Benjamin Eugene PA-C 40 [place], [place] [phone] [email or web address] documented as of this encounter Visit [...] documented as of this encounter Care Teams Fish Rod Maker Relationship Specialty Start Date End Date Uziel Baez MD 40 [place], [place] [id number] PCP - General Internal Medicine 08/02/19 09/23/19 Meredith Aranda, SITE AUDITOR [address] [place] [address] PCP - General Family Medicine 09/24/19 11/15/23 Umesh Ortiz MD [address] [place] [address], [address] [place] [address] PCP - General Internal Medicine 11/16/23 05/06/24 Benita Gordon NP [address] [place] [address] PCP - General Nurse Practitioner 05/07/24 05/31/24 Benjamin Eugene PA-C [address] [place] [address] [email or web address] PCP - General Physician Live Study Manager 06/01/24 Umesh Ortiz MD [address] [place] [address] Historical LMR Provider 06/30/17 Meredith Aranda, SITE AUDITOR [address] [place] [address] Historical LMR Provider 06/30/17 09/23/19 Uziel Baez MD [address] [place] [address] [email or web address] Insurance Assigned Provider Internal Medicine 09/24/19 documented as of this encounter Additional Source Comments The information contained in this document represents components of the legal health record. It is not the complete legal health record.[facility]
--- OUTSIDE RECORDS SUMMARY | 2025-01-18 07:02 | XMS_ITS | Encounter Summary ---
Author Organization [facility] Address [address] [address] Phone Care Team Providers Care Optician Apprentice Dispensing Name Role Phone Uziel Baez MD Unavailable [phone] Benjamin Eugene PA-C Primary Care Provider [phone] Reason for Visit * Reason Onset Date Comments Establish Care 12/20/2024 Encounter Details Date Type Department Care Team (Late st Contact Info) Description 12/20/2024 Telephone [facility] Pulmonary, Allergy and Critical Care Medicine 10 [place], [place] [phone] Benjamin Eugene PA-C 40 [place] [address] [email or web address] Establish Care Social History Tobacco Use Types [...] high school, GED, job training, learning the Wallisian language, technical skills, or developing parenting skills)? [...] day appt scheduled Please advise. Central Support Timber Inspector (Please do not reply to this user; this inbox is not monitored.) Thank you. * Dulce Maria Fleming - 12/20/2024 4:11 PM EDT Patient called in to schedule a NPV. Referral is on file. Patient stated it is best to call anytimebetween 11:30-12:30 or after 3:30. Please contact and advise. Central Support Timber Inspector (Please do not reply to this user; this inbox is not monitored.) Thank you. documented in this encounter Plan of Treatment Upcoming Encounters Date Type Department Care Team (Late st Contact Info) Description 04/24/2025 3:00 PM EDT Office Visit [facility] Pulmonary, Allergy and Critical Care Medicine [address] [place] [address] Rashard Medellin MD [address] [place] [address] 09/26/2025 3:20 PM EST Appointment [facility] [place] Internal Medicine 40 [place], [place] [phone] Benjamin Eugene PA-C 40 [place] [address] documented as of this encounter Visit Diagnoses Not on filedocumented in this encounter Additional Health Concerns Assessment Noted Time PHQ-9 Depression Total Score: 8 11/30/19 25 8:53 PM EDT PHQ-2 Depression Total Score: 1 11/30/19 25 8:53 PM EDT documented as of this encounter Care Teams Optician Apprentice Dispensing Relationship Specialty Start Date End Date Benjamin Eugene PA-C 40 [place] [address] [email or web address] PCP - General Physician Group Chief Operator 06/01/24 Uziel Baez MD 40 [place] [address] [email or web address] Insurance Assigned Provider Internal Medicine 09/24/19 documented as of this encounter Additional Source Comments The information contained in this document represents components of the legal health record. It is not the complete legal health record.[facility]
--- OUTSIDE RECORDS SUMMARY | 2025-01-18 07:02 | XMS_ITS | Encounter Summary ---
Author Organization [facility] Address [address] [place] [address] Phone Care Team Providers Care Chorus Master Name Role Phone Umesh Ortiz MD Unavailable Meredith Aranda MULLING MACHINE OPERATOR Unavailable [phone] Uziel Baez MD Primary Care Provider Meredith Aranda MULLING MACHINE OPERATOR Primary Care Provider Uziel Baez MD Unavailable Umesh Ortiz MD Primary Care Provider Benita Gordon MULLING MACHINE OPERATOR Primary Care Provider [phone] Benjamin Eugene PA-C Primary Care Provider Encounter Details Date Type Department Care Team (Latest Contact Info) Description 09/07/2019 Transcribe Orders Virtual Department 30 [place] [address] Fredy Hines MD [address] [place] [address] [email or web address] RUQ pain (Primary Dx); Nausea Social History [...] [facility] Pulmonary, Allergy and Critical Care Medicine [address] [place] [address] [place] [address] Fredy Medellin MD [address] [place] [address] 2nd [place] [address] [email or web address] 09/26/2025 3:20 PM EST Appointment [facility] Internal Medicine 40 [place], [place] 9954807 Benjamin Eugene PA-C 40 [place], [place] [phone] [email or web address] documented as of this encounter Results * [...] IMAGES/FRAMES POS - [id number] Fredy Hines MD [facility] documented in this encounter Visit [...] documented as of this encounter Care Teams Chorus Master Relationship Specialty Start Date End Date Uziel Baez MD 40 [place] [address] [email or web address] PCP - General Internal Medicine 08/02/19 09/23/19 Meredith Aranda NP [address] [place] [address] [email or web address] PCP - General Family Medicine 09/24/19 11/15/23 Umesh Ortiz MD [address] [place] [address] [email or web address] PCP - General Internal Medicine 11/16/23 05/06/24 Benita Gordon NP [facility] [place] [address] PCP - General Nurse Practitioner 05/07/24 05/31/24 Benjamin Eugene PA-C 40 [place] [address] [email or web address] PCP - General Physician Conductor Freight 06/01/24 Umesh Ortiz MD [address] [place], [place] [address], [place] [address] Historical LMR Provider 06/30/17 Meredith Aranda NP [address] [place] [address] 6 [place] [address] Historical LMR Provider 06/30/17 09/23/19 Uziel Baez MD [address] [place] [address] [email or web address] Insurance Assigned Provider Internal Medicine 09/24/19 documented as of this encounter Additional Source Comments The information contained in this document represents components of the legal health record. It is not the complete legal health record.[facility]
--- OUTSIDE RECORDS SUMMARY | 2025-01-18 07:02 | XMS_ITS | Clinical Summary ---
Author Organization [facility] Address [address] [place] [address] Care Team Providers Care Valet Attendant Name Role Phone Meredith Aranda NP [...] 2024 07/29/2022, 06/19/2021, 12/12/2020, Additional history exists Alcohol/Substance Use Screening 09/12/2024 Depression Screening and Follow-Up 09/12/2024 Social Drivers of Health Annual Screening 09/12/2024 Influenza Vaccine (Season Ended) 2025 06/09/2020, 06/28/2019, 06/28/2018, Additional history exists DTaP,Tdap,and Td Vaccines (8 - Td or [...] patient's age to complete this topic [place] [address] [place] [address] [place] [id number] Care Teams Valet Attendant Relationship Specialty Start Date End Date Meredith Aranda NP PCP - General Family Medicine 01/19/23
--- OUTSIDE RECORDS SUMMARY | 2025-01-18 07:02 | XMS_ITS | Encounter Summary ---
Author Organization [facility] Address [address] [place] [address] [place] [address] Phone Care Team Providers Care Effervescent Salts Compounder Name Role Phone Uziel Baez MD Unavailable [phone] Benita Gordon NP Primary Care Provider [phone] Benjamin Eugene PA-C Primary Care Provider [phone] Encounter Details Date Type Department Care Team (Late st Contact Info) Description 05/07/2024 Procedure Pass [facility], Ct Scan - [address] [address] Social History Tobacco Use Types Packs/Day Years [...] Pulmonary, Allergy and Critical Care Medicine 10 [place] [address] Rashard Medellin MD [address] [place] [address] 09/26/2025 3:20 PM EST Appointment [facility] Internal Medicine 40 [place] [address] Benjamin Eugene PA-C 40 [place] [address] documented as of this encounter Visit Diagnoses Not on filedocumented in this encounter Additional Health Concerns Assessment Noted Time PHQ-2 Depression Total Score: 0 07/02/20 22 1:23 PM EDT documented as of this encounter Care Teams Effervescent Salts Compounder Relationship Specialty Start Date End Date Benita Gordon NP [address] [place] [address] PCP - General Nurse Practitioner 05/07/24 05/31/24 Benjamin Eugene PA-C 40 [place] [address] [email or web address] PCP - General Physician Farm Supervisor 06/01/24 Uziel Baez MD 40 [place] [address] [email or web address] Insurance Assigned Provider Internal Medicine 09/24/19 documented as of this encounter Additional Source Comments The information contained in this document represents components of the legal health record. It is not the complete legal health record.[facility]
--- OUTSIDE RECORDS SUMMARY | 2025-01-18 07:02 | XMS_ITS | Referral Summary ---
Author Organization [facility] Address [address] [place] [address] Care Team Providers Care Water And Sewer Systems Supervisor Name Role Phone Meredith Aranda NP Primary [...] Plan of Treatment Not on file [place] [address] [address] [place] [address] [employer] [id number] Care Teams Water And Sewer Systems Supervisor Relationship Specialty Start Date End Date Meredith Aranda NP PCP - General Family Medicine 01/19/23
--- OUTSIDE RECORDS SUMMARY | 2025-01-18 07:02 | XMS_ITS | Encounter Summary ---
Author Organization [facility] Address [address] [place] [address] Phone Care Team Providers Care Vacuum Filter Operator Name Role Phone Umesh Ortiz MD Unavailable Meredith Aranda SUPERVISOR WOUND Unavailable [phone] Meredith Aranda SUPERVISOR WOUND Primary Care Provider Uziel Baez MD Primary Care Provider Meredith Aranda SUPERVISOR WOUND Primary Care Provider [phone] Uziel Baez MD Unavailable [phone] Umesh Ortiz MD Primary Care Provider [phone] Benita Gordon SUPERVISOR WOUND Primary Care Provider [phone] Benjamin Eugene PA-C Primary Care Provider [phone] Encounter Details Date Type Department Care Team (Late st Contact Info) Description 06/19/2018 Procedure Pass [facility], Ct Scan - [address] [address] Social History Tobacco Use Types Packs/Day Years [...] Critical Care Medicine [address] [place] [address] Rashard Medellin MD 10 [facility] 2nd [place] [address] [email or web address] 09/26/2025 3:20 PM EST Appointment [facility] Internal Medicine 40 [place], [place] [phone] Benjamin Eugene PA-C 40 [place] [address] [email or web address] documented as of this encounter Visit Diagnoses [...] documented as of this encounter Care Teams Vacuum Filter Operator Relationship Specialty Start Date End Date Meredith Aranda, SUPERVISOR WOUND [address] [place] [address] PCP - General Family Medicine 12/09/17 08/01/19 Uziel Baez MD [address] [place] [address] PCP - General Internal Medicine 08/02/19 09/23/19 Meredith Aranda, SUPERVISOR WOUND [address] [place] [address] PCP - General Family Medicine 09/24/19 11/15/23 Umesh Ortiz MD [address] [place] [address] PCP - General Internal Medicine 11/16/23 05/06/24 Benita Gordon NP [address] [place] [address] PCP - General Nurse Practitioner 05/07/24 05/31/24 Benjamin Eugene PA-C [address] [place] [email or web address] PCP - General Physician Painter Airbrush 06/01/24 Umesh Ortiz MD [address] [place] [address] Historical LMR Provider 06/30/17 Meredith Aranda, SUPERVISOR WOUND [address] [place] [address] 6 [place] [address] [email or web address] Historical LMR Provider 06/30/17 09/23/19 Uziel Baez MD 40 [place] [address] [email or web address] Insurance Assigned Provider Internal Medicine 09/24/19 documented as of this encounter Additional Source Comments The information contained in this document represents components of the legal health record. It is not the complete legal health record.[facility]
--- OUTSIDE RECORDS SUMMARY | 2025-01-18 07:02 | XMS_ITS | Encounter Summary ---
Author Organization [facility] Address [address] [place] [address] Phone Care Team Providers Care Sill Worker Name Role Phone Meredith Aranda EMBEDDED HARDWARE ENGINEER Primary Care Provider [phone] Uziel Baez MD Unavailable [phone] Umesh Ortiz MD Primary Care Provider [phone] Benita Gordon NP Primary Care Provider [phone] Benjamin EugeneC Primary Care Provider [phone] Encounter Details Date Type Department Care Team (Late st Contact Info) Description 03/12/2021 Procedure Pass [address] [place] [address] Social History Tobacco Use Types Packs/Day Years [...] [facility] Pulmonary, Allergy and Critical Care Medicine [address] [place] [address] Rashard Medellin MD [address] [place] [address] 09/26/2025 3:20 PM EST Appointment [facility] Internal Medicine 40 [place], [place] [phone] Benjamin Eugene PA-C 40 [place] [email or web address] documented as of this encounter Visit Diagnoses [...] documented as of this encounter Care Teams Sill Worker Relationship Specialty Start Date End Date Meredith Aranda NP PCP - General Family Medicine 09/24/19 11/15/23 Umesh Ortiz MD [address] [place] [address] 2nd [place] [address] PCP - General Internal Medicine 11/16/23 05/06/24 Benita Gordon NP [address] [place] [address] PCP - General Nurse Practitioner 05/07/24 05/31/24 Benjamin Eugene PA-C 40 [place] [address] [email or web address] PCP - General Physician Fabric Worker 06/01/24 Uziel Baez MD 40 [place] [address] [email or web address] Insurance Assigned Provider Internal Medicine 09/24/19 documented as of this encounter Additional Source Comments The information contained in this document represents components of the legal health record. It is not the complete legal health record.[facility]
--- OUTSIDE RECORDS SUMMARY | 2025-01-18 07:02 | XMS_ITS | Encounter Summary ---
Author Organization [facility] Address [address] [place] [address] Phone Care Team Providers Care Blow Torch Burner Name Role Phone Umesh Ortiz MD Unavailable Meredith Aranda ECOLOGICAL RISK ASSESSOR Unavailable [phone] Meredith Aranda ECOLOGICAL RISK ASSESSOR Primary Care Provider Uziel Baez MD Primary Care Provider Meredith Aranda ECOLOGICAL RISK ASSESSOR Primary Care Provider Uziel Baez MD Unavailable [phone] Umesh Ortiz MD Primary Care Provider Benita Gordon ECOLOGICAL RISK ASSESSOR Primary Care Provider [phone] Benjamin Eugene PA-C Primary Care Provider Encounter Details Date Type Department Care Team (Latest Contact Info) Description 07/06/2019 Transcribe Orders Virtual Department 30 [place] [address] Rashard Hines MD [address] [place] [address] [email or web address] RUQ pain (Primary Dx) Social History Tobacco [...] [facility] Pulmonary, Allergy and Critical Care Medicine [address] [place] [address] Rashard Medellin MD [address] [place] [address] 09/26/2025 3:20 PM EST Appointment [facility] Internal Medicine 40 [place] [address] Benjamin Eugene PA-C 40 [place] [address] [email or web address] documented as of this encounter Results * US PELVIS TRANSABDOMINAL ONLY WITH DOPPLER (07/12/2019 6:03 PM EDT) Anatomical Region Laterality Modality Pelvis, Uterus/Adnexa Ultrasound 07/12/2019 7:30 PM EDT Impressions 07/12/2019 7:38 PM EDT Physiologic appearance of the uterus and ovaries. POS - [id number] Narrative 07/12/2019 7:38 PM EDT EXAM: ?? [...] of the uterus and ovaries. POS - [id number] Rashard Hines MD IMG US PELVIS documented [...] documented as of this encounter Care Teams Blow Torch Burner Relationship Specialty Start Date End Date Meredith Aranda, ECOLOGICAL RISK ASSESSOR [address] [place] [address] PCP - General Family Medicine 12/09/17 08/01/19 Uziel Baez MD [address] [place] [address] PCP - General Internal Medicine 08/02/19 09/23/19 Meredith Aranda NP [address] [place] [address] PCP - General Family Medicine 09/24/19 11/15/23 Umesh Ortiz MD [address] [place] [address], 2nd [place] [address] PCP - General Internal Medicine 11/16/23 05/06/24 Benita Gordon NP [facility] [place] [address] PCP - General Nurse Practitioner 05/07/24 05/31/24 Benjamin Eugene PA-C [address] [place] [address] PCP - General Physician Property Controller 06/01/24 Umesh Ortiz MD [address] [place] [address], 2nd [place] [address] Historical LMR Provider 06/30/17 Meredith Aranda NP 26 [facility] 6 [place] [address] Historical LMR Provider 06/30/17 09/23/19 Uziel Baez MD 40 [place] [address] Insurance Assigned Provider Internal Medicine 09/24/19 documented as of this encounter Additional Source Comments The information contained in this document represents components of the legal health record. It is not the complete legal health record.[facility]
--- OUTSIDE RECORDS SUMMARY | 2025-01-18 07:02 | XMS_ITS | Encounter Summary ---
Author Organization [facility] Address [address] [place] [address] Phone Care Team Providers Care Linen Tech Name Role Phone Meredith Aranda NP Primary Care Provider [phone] Uziel Baez MD Unavailable [phone] Umesh Ortiz MD Primary Care Provider [phone] Benita Gordon NP Primary Care Provider [phone] Benjamin EugeneC Primary Care Provider Encounter Details Date Type Department Care Team (Late st Contact Info) Description 04/01/2021 Ancillary Orders [facility],Outside Imaging 30 [place] [address] System, Provider Not In, [facility] [address] [address] Social History Tobacco Use Types Packs/Day Years [...] high school, GED, job training, learning the [place] language, technical skills, or developing parenting skills)? [...] Pulmonary, Allergy and Critical Care Medicine [address] [place] [address] Rashard Medellin MD 10 [facility] 2nd [place] [address] 09/26/2025 3:20 PM EST Appointment [facility] Internal Medicine 40 [place] [address] Benjamin Eugene PA-C 40 [place] [address] documented as of this encounter Results * [...] documented as of this encounter Care Teams Linen Tech Relationship Specialty Start Date End Date Meredith Aranda NP PCP - General Family Medicine 09/24/19 11/15/23 Umesh Ortiz MD [address] [place] [address], 2nd [place] [address] PCP - General Internal Medicine 11/16/23 05/06/24 Benita Gordon NP [address] [place] [address] PCP - General Nurse Practitioner 05/07/24 05/31/24 Benjamin Eugene PA-C 40 [place] [address] [email or web address] PCP - General Physician Glassware Maker Demonstrator 06/01/24 Uziel Baez MD [address] [place] [address] [email or web address] Insurance Assigned Provider Internal Medicine 09/24/19 documented as of this encounter Additional Source Comments The information contained in this document represents components of the legal health record. It is not the complete legal health record.[facility]
--- OUTSIDE RECORDS SUMMARY | 2025-01-18 07:02 | XMS_ITS | Encounter Summary ---
Author Organization [facility] Address [address] [place] [address] Phone Care Team Providers Care Home Administrator Name Role Phone Brigette Vigil MD Primary Care Provider [phone] Encounter Details Date Type Department Care Team (Late st Contact Info) Description 12/17/2013 Orders Only [facility], [address] [place] [address] Social History Tobacco Use Types Packs/Day Years [...] on filedocumented in this encounter Care Teams Home Administrator Relationship Specialty Start Date End Date Brigette Vigil MD [address] [place] [address] [address] [place] [address] PCP - General 11/01/16 documented as of this encounter
[2025-02-25 14:10] VITALS: BMI 26.6
--- NOTE | 2025-02-26 10:22 | HO.ANESPROP2 ---
Documented by User: Arabella Potter NP 02/26/25 10:26 HPI - Anesthesia Eval Consult details Narrative: 24yo F for Upper Endoscopy s/p Upper Endoscopy with Balloon Dilitation 06/2024 with TIVA Mast Cell Ds: Abdominal pain. ? itchy throat. No derm reaction. No anaphylaxis. Famotadine, Cromolyn, Claritin rx. No previous Mast Cell cascade with EGDs with preop pepcid IV. Prefers to avoid benadryl preop. PMFSH Active Problems Active Problems: All Active Problems Epigastric abdominal pain (Acute) GERD (gastroesophageal reflux disease) (Acute) RUQ abdominal pain (Acute) Diarrhea (Acute) Mast cell disorder (Acute) Past Medical History Medical History Migraine Anxiety Mast cell disorder Family History Family History Father Family history of high blood pressure Mother Alive and well Family history of problems with anesthesia: No Surgical History Surgical History Hx of shoulder surgery Hx of knee surgery History of ankle surgery Hx of carpal tunnel repair Hx of endoscopy History of colonoscopy History of Problems with Anesthesia: No Social History Social History Are you a primary home health caregiver to a significant other at home: No Do you presently have visiting nurse or other home services: No Alcohol intake: never Patient Tobacco Use Status: Never used Tobacco Use of substances other than those prescribed or required for medical reasons: No Have you been hit, kicked, punched, or otherwise hurt by someone within the past year? If so, by whom?: No Are you DNR?: No Advance Directives: No Advance Directives Information Provided: Yes Advance Directives on File: No Meds Allergies Allergy/AdvReac Type Severity Reaction Status Date / Time No Known Allergies Allergy Verified 01/14/25 14:31 Home Medications ?Medication ?Instructions ?Recorded ?Confirmed ?Last Taken ?Type topiramate 25 mg tablet 25 mg PO BID 06/27/24 06/27/24 Unknown History bupropion HCl 75 mg tablet 150 mg PO BID 11/02/24 Unknown History Exam Height,Weight and Vital Signs: Height 5 ft 2 in Weight 65.998 kg Pertinent Lab Results Pertinent Lab Results: Laboratory Tests 01/17/25 07:33 WBC 3.5 L Hgb 13.7 Hct 41.7 Plt Count 248 Sodium 139 Potassium 3.9 Chloride 106 Carbon Dioxide 25 BUN 14 Creatinine 1.06 Assessment and Plan Assessment Anesthesia Assessment: Chart Reviewed Final Anesthetic Review Family History of Problems with Anesthesia: No History of Problems with Anesthesia: No Documented by User: Jose Guadalupe Desir MD 02/27/25 09:21 [facility] Past Medical History Medical History Migraine Anxiety Mast cell disorder Patient : No Family History Family History Father Family history of high blood pressure Mother Alive and well Surgical History Surgical History Hx of shoulder surgery Hx of knee surgery History of ankle surgery Hx of carpal tunnel repair Hx of endoscopy History of colonoscopy Social History Social History Are you a primary home health caregiver to a significant other at home: No Do you presently have visiting nurse or other home services: No Alcohol intake: never Patient Tobacco Use Status: Never used Tobacco Use of substances other than those prescribed or required for medical reasons: No Have you been hit, kicked, punched, or otherwise hurt by someone within the past year? If so, by whom?: No Are you DNR?: No Advance Directives: No Advance Directives Information Provided: Yes Advance Directives on File: No Meds Allergies Allergy/AdvReac Type Severity Reaction Status Date / Time No Known Allergies Allergy Verified 01/14/25 14:31 Home Medications ?Medication ?Instructions ?Recorded ?Confirmed ?Last Taken ?Type topiramate 25 mg tablet 25 mg PO BID 06/27/24 06/27/24 Unknown History bupropion HCl 75 mg tablet 150 mg PO BID 11/02/24 Unknown History Exam Airway Mallampati Class: I TM Dist: >3cm Neck ROM: Full Loose/Missing/Broken Teeth: No Heart: ok Lungs: ok Assessment and Plan Assessment Anesthesia Assessment: Anesthesia Plan Discussed Final Anesthetic Review NPO: Yes ASA Class: III Final Preanesthetic Review: No Changes in Pt Med Stat, Meds/Allgs Chart Reviewed, Consent Obtained/Reviewed and Anes Risks/Benef Reviewed Patient Risk: Intermediate Procedure Risk: Intermediate Anesthetic Plan Anesthetic Plan: Agree w/ Assess. and Plan and TIVA Disposition: Standard PACU
[2025-02-27 08:50] VITALS: BMI 27.3
[2025-02-27 09:00] LABS: UPreg QC Valid YES
[2025-02-27 09:01] LABS: Urine Pregnancy NEGATIVE (NEGATIVE)
[2025-02-27 09:02] VITALS: BP 124/85; PULSE 87; RESP 16; TEMP 36.6; O2SAT 100
[2025-02-27] MEDS: Lactated Ringers 1,000 ML 100 ML IVCONT (09:13)
[2025-02-27] MEDS: Famotidine/PF 20 MG/2 ML VIAL IVPUSH (09:21)
--- NOTE | 2025-02-27 10:03 | MHC.SHP ---
Pre-Procedural Eval Section A - 24 Hr Update-Section A only Date of Service: 02/27/25 Section B - Complete if H&P > 30 days Chief Complaint: Dysphagia, unspecified Relevant Family History (Specify if Yes): No Relevant Social History: None Present Medications: see Short Stay Collaborative assessment Medical History: Significant History (Migraine Anxiety Mast cell disorder) History of Previous Operations: Relevant previous surgery/procedure and date(s) (Hx of shoulder surgery Hx of knee surgery History of ankle surgery Hx of carpal tunnel repair Hx of endoscopy History of colonoscopy) Allergies: Allergies Allergy/AdvReac Type Severity Reaction Status Date / Time No Known Allergies Allergy Verified 01/14/25 14:31 Review of Systems Sugical H&P ROS: Negative: Constitution, Cardiovascular, Respiratory, Neurological, Psychiatric, Hem-Onc, Allergic/Immunologic, Gastrointestinal, Genitourinary, Musculoskeletal, Integumentary, Endocrine and Eyes/Ears/Nose/Throat Exam Surgical H&P Exam: Normal: HEENT, Normal: Heart, Normal: Lungs, Normal: Extremities, Normal: Abdomen, Normal: Skin and Normal: Neurological Plan Diagnosis/Plan: Unchanged I have reviewed the history and physical and performed a pertinent physical examination on my patient. No changes have occurred unless specified. Time Spent With Patient Time: Total time managing care of this patient today ____ minutes.
--- NOTE | 2025-02-27 10:26 | W.PM.OPN ---
Operative Note Operative Note Date of Service: 02/27/25 Narrative: Procedure Description: EGD Indication: dysphagia Anesthesia: MAC FLEXIBLE TRANSORAL UPPER GASTROINTESTINAL ENDOSCOPY UPPER ENDOSCOPY Consent: Indications for the procedure and potential complications of bleeding, perforation, reaction to medications and missed diagnosis were discussed with the patient and informed consent was obtained. Instrument: Olympus GIF H 190 J mid size upper endoscope Monitoring: Vital signs and clinical assessment, continuous EKG monitoring, Pulse oximetry, Carbon Dioxide monitoring and blood pressure monitoring were done throughout the procedure. Procedure: The patient was placed in the left lateral decubitis position and pre-procedure medications were administered and a bite block was placed. The endoscope was inserted into the mouth and advanced under direct vision to the third part of duodenum. A careful inspection was made as the upper endoscope was withdrawn including a retroflexed examination of the proximal stomach; Findings and interventions are described below. Findings: Larynx:normal Esophagus: GE junction at 40 cm, diaphragm hiatus at 40 cm, one tongue of suspected short segment [id number] taken from GEJD, distal and proximal esophagus --UES and LES also dilated to 20 mm, no heme noted Stomach: Mild erythema, Biopsies were obtained. Grade 2 flap valve on retroflexed examination of the cardia. Plyoric outlet stretched with wire guided balloon to 20 mm Duodenum: Normal bulb and descending duodenum, bx taken for disaccharidases and mast cell staining Intervention: Biopsies as noted above, wire guided balloon dilation Impression/Findings: mild gastritis PLAN: regular diet as tolerated GERD precautions
[2025-02-27 10:33] VITALS: BP 106/68; PULSE 93; RESP 16; TEMP 36.3; O2SAT 95
[2025-02-27 10:48] VITALS: BP 127/87; PULSE 84; RESP 16; O2SAT 98
[2025-02-27 10:59] VITALS: BP 124/87; PULSE 89; RESP 16; TEMP 36.1; O2SAT 99
[2025-03-03 01:44] LABS: Lactase 26.3 (15.0-45.5); Maltase 207.1 (100.0-224.4); Palatinase 21.4 (5.0-26.3); Sucrase 61.3 (25.0-69.9)
== END 2025-02-27 11:13 | disposition home or self-care (01) ==
PROVIDERS: Nurse Practitioner; PCP Physician Assistant Surgical; Visit Provider Internal Medicine Gastroenterology
PROC: 0DJ08ZZ Inspection of Upper Intestinal Tract, Via Natural or Artificial Opening Endoscopic (ICD-10-PCS; CPT 43235; principal; 2025-02-27 10:20)
DX: K29.60 Other gastritis without bleeding (principal); R13.10 Dysphagia, unspecified; R10.13 Epigastric pain; K21.9 Gastro-esophageal reflux disease without esophagitis; D47.09 Other mast cell neoplasms of uncertain behavior
CPT/HCPCS: 43248; 43249; 43239; 36415; 81025; 82657; 88305; 88341; 88342; C1726; J1308; J2003; J2704

== ENCOUNTER → 2025-02-27 08:26 | Outpatient (BNV) | payer OTHER, SELFPAY | PROVIDERS: PCP Physician Assistant Surgical; Visit Provider Internal Medicine Gastroenterology | DX: R13.10 Dysphagia, unspecified (principal); K22.89 Other specified disease of esophagus; K29.70 Gastritis, unspecified, without bleeding | CPT/HCPCS: 43245; 43249 ==

== ENCOUNTER 2025-03-04 08:47 | Outpatient (AMB) | payer OTHER, SELFPAY ==
--- NOTE | 2025-03-04 08:57 | MHC.OFFVIS ---
Intake Visit Reasons: post op EGD Intake Note: Tuyet presents as a telehealth for results to her EGD. Allergies No Known Allergies Allergy (Verified 03/04/25 08:57) HPI HPI post op EGD: Details: 24 yr old f here for f/u RECAP: she had been c/o nausea, epigastric pain, going into the chest pain worse with food indigestion, partially helped with PPI and pepcid EGD with suspected para esophageal hernia, path with patchy gastritis, pyloric dilation she feels dilation didn't help she is awaiting ba swallow I ordered other tests: 05/18/24 US 0.3 cm adherent calculus versus polyp adjacent to the neck of the gallbladder. Recommend follow-up with ultrasound in 6-12 months. MRI: 06/05 1. Nonspecific moderate gastric distention that could be seen with postprandial state or gastroparesis, and less likely gastric outlet obstruction, correlate clinically. 2. Otherwise, no significant abnormality to explain the patient's pain. HIDA_- normal upper GI series: 08/05 nml - no hiatal hernia seen GES: 10/06- slightly fast emptying at 2 hr EGD 02/27/25 dilated pylorus esophagus, and took bx consistent with esophagitis interim: Throat feels better she can swallow better she has noted some epigastric pain RAST was negative again she cant recall exact details A/P: 1/ GERD -not been on PPI, improved swallowing with dilation PLAN: 1/ advised to try solutab for few months at least and can take pepcid at night if needed 2/ if ongoing sx then capsule endoscopy PFSH Medical History Migraine Anxiety Mast cell disorder Surgical History Hx of shoulder surgery Hx of knee surgery History of ankle surgery Hx of carpal tunnel repair Hx of endoscopy History of colonoscopy Family History Father Family history of high blood pressure Mother Alive and well Social History Are you a primary medicare sales representative to a significant other at home: No Do you presently have visiting nurse or other home services: No Alcohol intake: never Patient Tobacco Use Status: Never used Tobacco Telehealth Telehealth Telehealth Platform: Telephone Location of provider rendering services: practice address Location of patient: address on file Patient Identification confirmed using: Name, : Yes Telehealth method: voice only Patient verbally consented to treatment: Yes Patient verbally consented to billing insurance company: Yes Patient informed of any privacy concerns related to visit: Yes Minutes spent on Phone/Video with Pt.: 6 Assessment & Plan Assessment & Plan (1) GERD (gastroesophageal reflux disease): Code(s): K21.9 - Gastro-esophageal reflux disease without esophagitis Category: Medical Plan: see above Coding Level of Care Code Tele Est Pt Level 3 (17605) Diagnoses GERD (gastroesophageal reflux disease) K21.9
--- OUTSIDE RECORDS SUMMARY | 2025-03-04 09:11 | XMS_ITS | Clinical Summary ---
Author Organization [facility] Address [address] [place] [address] Phone Care Team Providers Care Secondary [employer] Teacher Name Role Phone Brigette Vigil MD Primary Care Provider [phone] Immunizations Immunization Administration Dates Next Due DTaP [...] AM EDT Pulse - - Temperature 36.7 C (98 F) 09/03/2016 3:51 PM EST Respiratory Rate - [...] 05/16/2013, Additional history exists COVID-19 Vaccine ( season) 2024 Hepatitis B Vaccines Completed 07/29/1999, [...] age to complete this topic Care Teams Secondary School Teacher Relationship Specialty Start Date End Date Brigette Vigil MD [address] [place] [address] [address] [place] [address] PCP - General 11/01/16
== END 2025-03-04 15:51 | disposition home or self-care (01) ==
LOC: HO.HGI 08:47
PROVIDERS: PCP Physician Assistant Surgical; Visit Provider Internal Medicine Gastroenterology
DX: K21.9 Gastro-esophageal reflux disease without esophagitis (principal)
CPT/HCPCS: 98012